=== PATIENT | male | born 1950 | race Caucasian/White ===

== ENCOUNTER 2018-04-20 16:56 | Inpatient (IN) | payer OTHER ==
--- NOTE | 2018-04-20 17:16 | EDPHY ---
H & P Stated Complaint: abd pain, N/V since yesterday Time Seen by Provider: 04/20/18 17:16 - Personal History Current Tetanus/Diphtheria Vaccine: Yes Current Tetanus Diphtheria and Acellular Pertussis (TDAP): Yes - Medical/Surgical History Hx Asthma: No Hx Chronic Respiratory Disease: No Hx Diabetes: No Hx Cardiac Disease: No Hx Renal Disease: No Hx Cirrhosis: No Hx Alcoholism: No Hx HIV/AIDS: No Hx Splenectomy or Spleen Trauma: No - Social History Smoking Status: Never smoked Constitutional: Initial Vital Signs Temperature (C) 37.1 C 04/20/18 17:03 Heart Rate 131 H 04/20/18 17:03 Respiratory Rate 19 04/20/18 17:03 Blood Pressure 102/90 H 04/20/18 17:03 O2 Sat (%) 94 04/20/18 17:03 O2 Delivery Mode Room Air Allergies/Adverse Reactions: No Known Allergies Allergy (Unverified 04/20/18 17:09) Home Medications: Medication Instructions Recorded Acyclovir 04/20/18 Levothyroxine 04/20/18 Lipitor 04/20/18 Medical Decision Making - Diagnostics Imaging Results: Imaging Impressions Abdomen/Pelvis CT 04/20/18 17:40 Impression: Extensive features of acute pancreatitis, associated with retroperitoneal and intraperitoneal fluid. Calcified gallstones are present dependently, associated with a rounded calcification in the pancreatic head suspicious for choledocholithiasis. Results called to Antonio Wick M.D., at 6:00 p.m. Imaging: Discussed imaging studies w/ rn call center Radiologist, I viewed and interpreted images myself ED Course/Re-evaluation: CHIEF COMPLAINT: Abdominal pain, nausea, vomiting HISTORY OF PRESENT ILLNESS: The patient is a 68 y/o male with a history of an appendectomy complaining of abdominal pain, nausea, and vomiting onset last night. At 7:00pm last night he had a bowel movement and then became nauseous and vomited. Since then he has had several episode of vomiting as well as diffuse abdominal tenderness. He saw his PCP (Dr. Le) today and had labs drawn which revealed elevated AST/ Alk Phos/ALT and a WBC of 23. Due to these labs, the patient was advised to present to the emergency department. His PCP gave the patient Phenergan which did not alleviate his symptoms. No fever, chest pain, shortness of breath, urinary complaints, numbness, paresthesias. REVIEW OF SYSTEMS: A comprehensive 10 system review of systems is otherwise negative aside from elements mentioned in the history of present illness and medical decision making. PHYSICAL EXAM: HR, BP, O2 Sat, RR. Temp noted General Appearance: Alert, appropriate, appears ill. Head: Atraumatic without scalp tenderness or obvious injury Eyes: Pupils equal, round, reactive to light and accommodation, EOMI, no trauma , no injection. Ears: Clear bilaterally, no perforation, normal landmarks Nose: Atraumatic, no rhinorrhea, clear. Throat: There is no erythema or exudates, no lesions, normal tonsils, dry membranes moist. Neck: Supple, 2+ carotid upstroke, nontender, no lymphadenopathy. Respiratory: No retractions, no distress, no wheezes, and no accessory muscle use. Lungs are clear to auscultation bilaterally. Cardiovascular: Regular rate and rhythm, no murmurs, rubs, or gallops. Bilateral carotid, radial, dorsalis pedis, and posterior tibial pulses intact. Good capillary refill all extremities. Gastrointestinal: Diffuse abdominal tenderness with peritoneal signs. Abdomen is soft, non-distended, no masses, no rebound. Musculoskeletal: Normal active ROM of all extremities, atraumatic. Neurological: Alert, appropriate, and interactive. The patient has normal DTRs and non-focal cranial nerves, motor, sensory, and cerebellar exam. Skin: No rashes, good turgor, no nodules on palpation. Past medical history: Denies Past surgical history: Appendectomy Family history: Denies Social history: and daughter at bedside, lives in [place], retired DIAGNOSTICS/PROCEDURES/CRITICAL CARE TIME: Abdominopelvic CT w/o contrast: Severe gallstone pancreatitis with common bile duct stone Critical care time spent by me, Dr. Wick, exclusively with this patient was 90 minutes, exclusive of PA time and exclusive of procedures. The organ system at risk was Z and I gave IVF, antibiotic, and transferred the patient the unit to prevent worsening of the patients condition. DIFFERENTIAL DIAGNOSIS: The differential diagnosis for the patient's abdominal pain included but was not limited to gallstone pancreatitis, appendicitis, cholecystitis, hernias, testicular torsion, gastritis, and urinary tract infection. MEDICAL DECISION MAKING: The patient is a 68 y/o male with a history of an appendectomy presenting with abdominal pain, nausea, and vomiting onset last night at 7:00pm after a bowel movement. While at his PCP's office today he had elevated AST/Alk Phos/ALT and a WBC of 23. On exam he has severe diffuse abdominal tenderness with peritoneal signs, dry mucus membranes, and appears sick. Labs and CT ordered; 2L IV NS and 1mg IV Dilaudid administered. 1739: Patient has a creatinine of 1.9; non-contrast CT ordered. 1749: Patient is in metabolic acidosis with an anion gap of 18. His H&H are also elevated which I presume is pre-renal. 1800: I spoke with radiologist who reports that the patient has severe gallstone pancreatitis with a gallstone in the common bile duct. GI paged. 1802: Reassessed patient and discussed imaging findings. I discussed plan for admission and stone removal which the patient and his family are comfortable with. 1813: I consulted with Dr. Trevizo, drone pilot, regarding this patient. He agrees to consult on this patient during his admission. 1gm IV Ertapenem administered. 1814: I consulted with the hospitalist regarding this patient, Dr. Coburn accepts admission of this patient. 1842: Additional 1L IV NS administered for a total of 3L IV NS. Patient is safe to be transferred to the floor. 1900: Dr. Trevizo and Dr. Coburn are in the emergency department to assess the patient. - Data Points Laboratory Results: Laboratory Results 04/20/18 17:25 04/20/18 17:25 04/20/18 04/20/18 04/20/18 18:05 17:36 17:25 WBC RBC Hgb POC Hgb 22.1 gm/dL H* gm/dL (13.7-17.5) Hct POC Hct 65 % H* % (40-51) MCV MCH MCHC RDW Plt Count MPV Neut % (Auto) Lymph % (Auto) Haines % (Auto) Eos % (Auto) Baso % (Auto) Nucleat RBC Rel Count Absolute Neuts (auto) Absolute Lymphs (auto) Absolute Monos (auto) Absolute Eos (auto) Absolute Basos (auto) Absolute Nucleated RBC Immature Gran % Immature Gran # RBC/WBC/PLT Morphology Platelet Estimate PT INR APTT VBG Lactic Acid 4.9 mmol/L H mmol/L (0.7-2.1) POC Sodium 141 mEq/L mEq/L (135-145) Sodium 136 mEq/L mEq/L (135-145) POC Potassium 4.0 mEq/L mEq/L (3.3-5.0) Potassium 4.3 mEq/L mEq/L (3.5-5.2) POC Chloride 101 mEq/L mEq/L (97-110) Chloride 99 mEq/L mEq/L (97-110) Carbon Dioxide 19 mEq/l L mEq/l (22-31) POC Total CO2 21 mEq/L L mEq/L (22-31) Anion Gap 18 mEq/L H mEq/L (6-14) POC BUN 31 mg/dL H mg/dL (7-23) BUN 29 mg/dL H mg/dL (7-23) Creatinine 1.9 mg/dL H mg/dL (0.7-1.3) POC Creatinine 2.0 mg/dL H mg/dL (0.7-1.3) Estimated GFR 35 Glucose 149 mg/dL H mg/dL (70-100) POC Glucose 159 mg/dL H mg/dL (70-100) Calcium 9.0 mg/dL mg/dL (8.5-10.4) Total Bilirubin 3.0 mg/dL H mg/dL (0.1-1.4) Conjugated Bilirubin 1.1 mg/dL H mg/dL (0.0-0.5) Unconjugated Bilirubin 1.9 mg/dL H mg/dL (0.0-1.1) AST 241 IU/L H IU/L (17-59) ALT 346 IU/L H IU/L (21-72) Alkaline Phosphatase 190 IU/L H IU/L (38-126) Total Protein 8.1 g/dL g/dL (6.3-8.2) Albumin 4.8 g/dL g/dL (3.5-5.0) Lipase 66813 IU/L H IU/L (23-300) 04/20/18 04/20/18 17:25 17:25 WBC 25.56 10^3/uL H 10^3/uL (3.80-9.50) RBC 6.82 10^6/uL H 10^6/uL (4.40-6.38) Hgb 20.7 g/dL H* g/dL (13.7-17.5) POC Hgb Hct 60.7 % H* % (40.0-51.0) POC Hct MCV 89.0 fL fL (81.5-99.8) MCH 30.4 pg pg (27.9-34.1) MCHC 34.1 g/dL g/dL (32.4-36.7) RDW 13.4 % % (11.5-15.2) Plt Count 246 10^3/uL 10^3/uL (150-400) MPV 10.5 fL fL (8.7-11.7) Neut % (Auto) 89.6 % H % (39.3-74.2) Lymph % (Auto) 4.3 % L % (15.0-45.0) Haines % (Auto) 4.9 % % (4.5-13.0) Eos % (Auto) 0.0 % L % (0.6-7.6) Baso % (Auto) 0.5 % % (0.3-1.7) Nucleat RBC Rel Count 0.1 % % (0.0-0.2) Absolute Neuts (auto) 22.90 10^3/uL H 10^3/uL (1.70-6.50) Absolute Lymphs (auto) 1.10 10^3/uL 10^3/uL (1.00-3.00) Absolute Monos (auto) 1.25 10^3/uL H 10^3/uL (0.30-0.80) Absolute Eos (auto) 0.00 10^3/uL L 10^3/uL (0.03-0.40) Absolute Basos (auto) 0.13 10^3/uL H 10^3/uL (0.02-0.10) Absolute Nucleated RBC 0.03 10^3/uL H 10^3/uL (0-0.01) Immature Gran % 0.7 % % (0.0-1.1) Immature Gran # 0.18 10^3/uL H 10^3/uL (0.00-0.10) RBC/WBC/PLT Morphology TNP Platelet Estimate TNP PT REJ INR SHIPPING AND RECEIVING SPECIALIST APTT REJ VBG Lactic Acid POC Sodium Sodium POC Potassium Potassium POC Chloride Chloride Carbon Dioxide POC Total CO2 Anion Gap POC BUN BUN Creatinine POC Creatinine Estimated GFR Glucose POC Glucose Calcium Total Bilirubin Conjugated Bilirubin Unconjugated Bilirubin AST ALT Alkaline Phosphatase Total Protein Albumin Lipase Medications Given: Discontinued Medications Hydromorphone HCl (Dilaudid) 1 mg IVP EDNOW ONE Stop: 04/20/18 18:10 Last Admin: 04/20/18 18:09 Dose: 1 mg Sodium Chloride (Ns) 1,000 mls @ 0 mls/hr IV EDNOW ONE; Wide Open PRN Reason: Protocol Stop: 04/20/18 17:22 Last Admin: 04/20/18 17:33 Dose: 1,000 mls Sodium Chloride (Ns) 1,000 mls @ 0 mls/hr IV EDNOW ONE; Wide Open PRN Reason: Protocol Stop: 04/20/18 17:34 Last Admin: 04/20/18 17:40 Dose: 1,000 mls Ertapenem 1 gm/ Sodium (Chloride) 100 mls @ 200 mls/hr IV EDNOW ONE PRN Reason: Protocol Stop: 04/20/18 18:42 Last Admin: 04/20/18 18:40 Dose: 100 mls Point of Care Test Results: Chemistry 04/20/18 17:36 POC Sodium 141 mEq/L mEq/L (135-145) POC Potassium 4.0 mEq/L mEq/L (3.3-5.0) POC Chloride 101 mEq/L mEq/L (97-110) POC Total CO2 21 mEq/L L mEq/L (22-31) POC BUN 31 mg/dL H mg/dL (7-23) POC Creatinine 2.0 mg/dL H mg/dL (0.7-1.3) POC Glucose 159 mg/dL H mg/dL (70-100) ISTAT H&H 04/20/18 17:36 POC Hgb 22.1 gm/dL H* gm/dL (13.7-17.5) POC Hct 65 % H* % (40-51) Departure - Departure Disposition: [facility] Inpatient Acute Clinical Impression: Gallstone pancreatitis, Dehydration, Metabolic acidosis Ascites Qualifiers: Ascites type: other type Qualified Code(s): R18.8 - Other ascites Condition: Fair Report Scribed for: Antonio Wick Report Scribed by: Leia Childress Date of Report: 04/20/18 Time of Report: 17:24
[2018-04-20] MEDS ORDERED: NS 1,000 ML IV ONE ×3 (17:21→19:10)
[2018-04-20] MEDS ORDERED: HYDROmorphONE/DILAUDID 1 MG/ML INJ ONE (18:08)
[2018-04-20] MEDS ORDERED: HYDROmorphONE/DILAUDID 1 MG/ML INJ IVP ONE (18:09)
[2018-04-20] MEDS ORDERED: ERTAPENEM 1 GM in NS 100 ML IV ONE (18:13)
[2018-04-20 18:14] LABS: PLATELET COUNT 246 10^3/uL (150-400)
[2018-04-20] MEDS ORDERED: HYDROmorphONE/DILAUDID 1 MG/ML INJ IVP PRN (18:38)
[2018-04-20] MEDS ORDERED: PROMETHAZINE HCL 25 MG/ML INJ IVP PRN (18:38)
[2018-04-20] MEDS ORDERED: ONDANSETRON 4 MG/2 ML VIAL IVP PRN (18:38)
[2018-04-20 19:27] LABS: INR 1.14 (0.83-1.16); PROTIME(PATIENT) 14.8 SEC (12.0-15.0)
[2018-04-20] MEDS: NS 1,000 ML IV SCH (20:38)
--- NOTE | 2018-04-20 23:24 | GHP ---
[f rep st] HISTORY AND PHYSICAL DATE OF ADMISSION: 04/20/2018 CHIEF COMPLAINT: Abdominal pain and nausea. HISTORY OF PRESENT ILLNESS: Mr. Colvin is a pleasant 68-year-old gentleman with a past medical histo ry of hyperlipidemia and hypothyroidism, who presented to the [facility] Emergency Ro om with complaints of abdominal pain and nausea and vomiting. He had a lipase level which was notabl y elevated at 12,000, and CT imaging of his abdomen and pelvis showed extensive features of acute [place] creatitis. In the emergency room his case was reviewed with Gastroenterology. I also reviewed the c ase with Gastroenterology, and the plan is for IV fluids, IV antibiotics, and pain medications overni ght and tentatively planning for an ERCP tomorrow morning. Patient states that his symptoms develope d over the subsequent 36 hours. Much of the history was provided by his and daughter who were p resent at the bedside. PAST MEDICAL HISTORY: Hyperlipidemia, hypothyroidism. PAST SURGICAL HISTORY: Appendectomy and Achilles heel surgery on a tendon. MEDICATIONS: None. ALLERGIES: No known drug allergies. FAMILY HISTORY: Mother is . She from congestive heart failure. Father is currently li ving and reportedly healthy. SOCIAL HISTORY: The patient is a nonsmoker. He is currently . He has one daughter. He is a full code status. REVIEW OF SYSTEMS: CONSTITUTIONAL: No subjective fevers or chills. ENT: No recent upper respirato ry illnesses. CARDIOVASCULAR: No complaints of any chest pains, palpitations, or syncopal episodes. RESPIRATORY: No complaints of shortness of breath or productive cough. GI: Positive for epigastr ic discomfort with associated nausea and vomiting. NEUROLOGIC: No complaints of any headaches or fo shirley weakness. HEMATOLOGIC: No history of any deep vein thrombosis or pulmonary embolisms. PSYCHIAT JOSE: No history of anxiety or depression. ENDOCRINE: No history of polyuria or heat intolerance. SKIN: No new skin rashes or bruising on the flanks. MUSCULOSKELETAL: No focal joint pains. PHYSICAL EXAM: VITAL SIGNS: Temperature 36.4, blood pressure 139/102, heart rate 131 initially whic h has improved to 109 with some IV fluid hydration, respiratory rate of 20, saturating 94% on room ai r. GENERAL: Patient appears moderately uncomfortable, lying flat in the bed. He is arousable, poon ricky, and responding to questions but prefers to have his family answer for him. HEENT: Extraocular movements appear intact. No scleral icterus is appreciated. NECK: Supple. No thyroid enlargement. CHEST: Clear to auscultation with normal respiratory effort. HEART: Regular rate and rhythm. No murmurs. ABDOMEN: Tenderness with palpation of the epigastrium. Diminished bowel sounds throughou t. No rebound tenderness or significant distention appreciated. : No Arciniega catheter in place. E XTREMITIES: No significant edema. NEUROLOGIC: Cranial nerves 2-12 appear intact and 5/5 strength i n extremities. LABS: White blood cell count 25, hemoglobin 20, platelets 246. Sodium 141, potassium 4.0, chloride 99, bicarb 19, BUN 29, creatinine 1.9, glucose 149, AST 241, ALT 346, alkaline phosphatase 190, total bilirubin 3.0, lipase 12,294, lactic acid 4.9. IMAGING: CT scan of the abdomen showing extensive features of acute pancreatitis with associated ret roperitoneal and intraperitoneal fluid. Calcified gallstones present dependently associated with a r ound calcification in the pancreatic head, suspicious for choledocholithiasis. ASSESSMENT/PLAN: 1. Pancreatitis/gallstone: Concerning for related to choledocholithiasis by CT imaging findings. G astroenterology has been consulted, and I reviewed the case with Dr. Trevizo today. Plan is for ERCP u paoc reassessment tomorrow morning. In the interim, continue with IV fluids and IV antibiotic therapy as well as IV medications for pain management. Reassess liver enzymes and white blood cell count an d lipase level with morning labs. 2. Acute kidney injury, likely secondary to hypovolemia: Reassess overnight with IV fluids. 3. Transaminitis: Trend overnight with treatment as detailed above. 4. Lactic acidosis: Improved since admission from 4.9 to 2.6. 5. Elevated hemoglobin, likely hemoconcentrated: Reassess in the morning after IV fluids. 6. Hyperlipidemia: Hold the statin therapy for now. 7. Hypothyroidism: Hold levothyroxine for now until tolerating diet. 8. Deep venous thrombosis prophylaxis: We will hold Lovenox/heparin overnight in anticipation of po tential procedure tomorrow morning. DISPOSITION: I recommend admission as an inpatient. Considering the level of patient's illness, ant icipated ERCP, and anticipated time needed to advance his diet. /[id number]/MODL
--- NOTE | 2018-04-21 00:14 | GCON ---
[f rep st] CONSULTATION DATE OF CONSULTATION: 04/20/2018 REASON FOR CONSULTATION: Acute pancreatitis. Dear Dr. Coburn: Thank you very kindly for asking me to evaluate the patient in consultation for a chief complaint of abdominal pain. He is a pleasant 68-year-old male without significant past medical history who prese nts with abrupt onset epigastric pain that was severe in nature. He thought he had food-borne illnes s and tried to have a bowel movement. He was successful in having a bowel movement that he says was normal but did not resolve any of his pain. He started having nausea and vomiting and has been unabl e to tolerate much oral intake. He has been dizzy, fatigued, and somewhat lightheaded. In the emerg ency room he was found to have acute pancreatitis with a lipase of 12,294. He has LFTs that reveal b oth an elevated total bilirubin at 3.0 with an unconjugated fraction of 1.9, an AST of 241, an ALT of 346, and an alkaline phosphatase of 190. He is in mild renal failure with a creatinine of 1.9, and he is markedly hemoconcentrated with a hematocrit of 60.7 and a white count of 25.56. His bicarbonat e is low at 19 with an anion gap of 18. A CT scan of the abdomen and pelvis without IV contrast due to his renal failure demonstrated cholelithiasis, perihepatic ascites likely from pancreatitis, and a 2.6 mm stone within the common bile duct at the head of the pancreas. The pancreas also demonstrate s radiographic features of acute pancreatitis. The patient denies any fever. He has had no jaundice or pruritus. He denies any tea-colored urine, although he also admits to not making much urine. He has never had previous pancreatitis. There is no history of alcoholism. I am asked to assist with further evaluation and management. PAST MEDICAL HISTORY: None. PAST SURGICAL HISTORY: Appendectomy. SOCIAL HISTORY: No tobacco. No substance abuse. Rare alcohol. The patient lives in [place]. He is . He has one daughter. 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 MEDICATIONS ON ADMISSION: None. ALLERGIES: None. REVIEW OF SYSTEMS: CONSTITUTIONAL: Denies fever, chills. He has had no appetite. HEENT: No heada sissy. No rhinorrhea. No sore throat. PULMONARY: He has felt somewhat short of breath and dyspneic. CARDIOVASCULAR: No chest pain, palpitations, or syncope. GASTROINTESTINAL: Denies heartburn or d ysphagia. No hematemesis, but he has had dry heaves and vomiting of bilious material. No diarrhea. No constipation. No melena. No hematochezia. Diffuse and generalized abdominal pain that is rated as severe and 8/10 in nature. RHEUMATOLOGIC: No joint pain or swelling. DERMATOLOGIC: No jaundic e, rash, or pruritus. ENDOCRINE: No heat or cold intolerance. He has been somewhat thirsty. GENIT OURINARY: No flank pain or dysuria. No hematuria. HEMATOLOGIC: No bruising or epistaxis. LYMPH: No glandular swelling or adenopathy. FAMILY HISTORY: Negative for pancreatitis. PHYSICAL EXAM: VITAL SIGNS: Blood pressure 139/102, heart rate is 109 (was 130 with a sinus tachyca rdia on admission and improved with fluids), initial temperature was 37.1, current temperature is 36. 4, oxygenation is 94% on room air. GENERAL: Ill-appearing male seems comfortable though laying flat in the stretcher in the emergency room. HEENT: Sclerae are not overtly icteric. NECK: Supple. M ucous membranes are dry. No adenopathy. No carotid bruit. PULMONARY: He is tachypneic. Breath so unds are equal, and he moves air well without rales. CARDIOVASCULAR: Regular tachycardia. Systolic murmur at the left border 2/6. ABDOMEN: Distended, somewhat tympanic centrally. There is tenderne ss diffusely. No overt rebound. There is voluntary guarding with palpation. There are no peritonea l signs in regard to when I shake the bed or bounce his belly or lift up off his abdomen quickly. Th ere is no rebound or other immediate pain. I do not palpate the gallbladder liver or spleen. I yesy ot appreciate ascites, although radiographically he was noted to have this. There is no flank hemorr mary. No CVA tenderness. MUSCULOSKELETAL: Normal joint exam without swelling or deformity. DERMAT OLOGIC: No jaundice. No rash. NEUROLOGIC: Alert to person, place, and time. Appropriate speech a nd affect. Able to provide his history. Moves all extremities normally. DATABASE: White blood count is 25.5, hematocrit is 60.7, platelets are 246. His lactate is 4.9. So dium 141, potassium 4.0, chloride 101, bicarbonate 19, BUN is 31 with a creatinine of 1.9, glucose 14 9, calcium 9.0, total bilirubin 3.0 with a direct of 1.1, AST 241, ALT 346, alkaline phosphatase 190, albumin 4.8, lipase is 12,294. IMAGING: Includes a CT scan of the abdomen and pelvis without IV contrast that demonstrates clear chetna ng bases. There are perihepatic ascites. There are extensive inflammatory changes around the pancre as with retroperitoneal and intraperitoneal fluid. There are small dependent calcified gallstones in the gallbladder. There is choledocholithiasis with a 2.6 mm calculus in the head of the pancreas. The small bowel is dilated, compatible with ileus. The spleen is normal. No focal liver lesion. No mention of biliary dilatation. IMPRESSION: 1. Epigastric and generalized abdominal pain. 2. Nausea and vomiting. 3. Acute pancreatitis, likely gallstone related. 4. Lactic acidosis. 5. Severe dehydration with hemoconcentration. RECOMMENDATIONS: 1. NPO. 2. Aggressive IV fluid resuscitation. 3. Monitor LFTs and lipase. 4. We will plan for ERCP to extract the choledocholithiasis in the morning as long as he demonstrate s persistent evidence of biliary obstruction with elevated liver tests and ongoing pain with pancreat itis. The benefit of removing the choledocholithiasis in the setting of ongoing pancreatitis that is being driven by the obstructing stone is important and should be done tomorrow. 5. I have spoken with the OR scheduling and with Radiology to secure the C-arm as well as with GI En doscopy Lab to confirm we can have a start time of approximately 7:15 tomorrow morning. 6. ICU monitoring overnight. 7. IV PPI b.i.d. for GI prophylaxis. 8. Antibiotics, broad spectrum, in the setting of likely biliary obstruction and gallstone pancreati tis will be initiated tonight. 9. We will avoid the use of Indocin for preprocedural ERCP as he already has elevation of his creati nine and has pancreatitis already, so I think the benefit of indomethacin for preprocedure prophylaxi s will not be warranted. 10. Further recommendations to follow. I have discussed the case with Dr. Coburn and with Dr. Joel cancino, the ER attending, as well as the family. If there is worsening of his clinical condition overnig ht with the development of either mental status change, sepsis, or evidence of cholangitis, then a mo re urgent ERCP this evening will be required. For now I think we would be able to support him and re suscitate him appropriately for the intervention tomorrow morning. /[id number]/MODL
[2018-04-21] MEDS: HYDROmorphONE/DILAUDID 1 MG/ML INJ IVP PRN ×8 (00:17→22:20)
[2018-04-21 05:19] LABS: PLATELET COUNT 199 10^3/uL (150-400)
[2018-04-21] MEDS ORDERED: IOTHALAMATE MEG (CONRAY) 50 ML VIAL IV ONE (05:34)
[2018-04-21] MEDS: NS 1,000 ML IV SCH (06:02)
--- NOTE | 2018-04-21 06:21 | PDMN ---
Medical Necessity Medical necessity: MCG: M250 pancreatitis 2 days-68 yr old M presents with acute abd pain, N/V., Lipase elevated at 12,000, Cr. elevated at 1.9, leukocytosis, elevated LFT's., CT shows acute pancreatitis. pt is tachycardic -131, elevated BP 139/102, pt will be NPO , IVF , IV abx, IV pain, anticipate > 2 MN ongoing med nec care- further monitoring, eval and tx.
--- NOTE | 2018-04-21 06:57 | PDANEPAE ---
ANE History of Present Illness acute pancreatitis ANE Past Medical History - Cardiovascular History Hx Hypertension: No Hx Arrhythmias: No Hx Chest Pain: No Hx Coronary Artery / Peripheral Vascular Disease: No Hx CHF / Valvular Disease: No Cardiovascular History Comment: high cholesterol - Pulmonary History Hx COPD: No Hx Asthma/Reactive Airway Disease: No Hx Recent Upper Respiratory Infection: No Hx Oxygen in Use at Home: No Hx Sleep Apnea: No Sleep Apnea Screening Result - Last Documented: Positive - Neurologic History Hx Cerebrovascular Accident: No Hx Seizures: No Hx Dementia: No - Endocrine History Hx Diabetes: No Hypothyroid: Yes Hyperthyroid: No Obesity: no - Renal History Renal History Comment: acute renal due to dehydration - Liver History Hepatic History Comment: pancreatitis - Neurological & Psychiatric Hx Hx Neurological and Psychiatric Disorders: No - Cancer History Hx Cancer: No - Congenital Disorder History Hx Congenital Disorders: No - GI History Hx Gastrointestinal Disorders: Yes Gastrointestinal History Comment: acute pancreatitis - Chronic Pain History Chronic Pain: No - Surgical History Prior Surgeries: appy. achilles ANE Review of Systems Review of systems is: negative Review of Systems: - Exercise capacity METS (RN): 4 METS ANE Patient History - Allergies Allergies/Adverse Reactions: No Known Allergies Allergy (Unverified 04/20/18 17:09) - Home Medications Home medications: home medication list seen and reviewed Home Medications: Acyclovir [Zovirax 400 mg (*)] 400 mg PO TID PRN 04/20/18 [Last Taken 3 Weeks Ago ~03/30/18] Aspirin EC [Aspirin EC 81 mg (*)] 81 mg PO HS 04/20/18 [Last Taken 04/18/18] Levothyroxine [Synthroid 25 mcg (*)] 50 mcg PO DAILY06 04/20/18 [Last Taken 01/26] Promethazine HCl [Promethazine HCl] 25 mg PO Q6H PRN 04/20/18 [Last Taken 14:30] SIMVASTATIN 10 mg PO HS 04/20/18 [Last Taken 04/18/18] - NPO status NPO Status: no food or drink >8 hours NPO Since - Liquids (Date): 04/20/18 NPO Since - Liquids (Time): 21:00 NPO Since - Solids (Date): 04/20/18 NPO Since - Solids (Time): 20:00 - Anes Hx Anes Hx: no prior problems - Smoking Hx Smoking Status: Never smoked Marijuana use: No - Alcohol Use Alcohol Use: Rarely - Family Anes Hx Family Anes Hx: none ANE Labs/Vital Signs - Labs Result Diagrams: 04/21/18 04:05 04/20/18 17:25 - Vital Signs Blood Pressure: 108/89 Heart Rate: 114 Respiratory Rate: 15 O2 Sat (%): 91 Height: 185.42 cm Weight: 94.5 kg ANE Physical Exam - Airway Neck exam: FROM Mallampati Score: Class 2 Mouth exam: normal dental/mouth exam - Pulmonary Pulmonary: no respiratory distress, clear to auscultation - Cardiovascular Cardiovascular: regular rate and rhythym, no murmur, rub, or gallop - ASA Status ASA Status: III ANE Anesthesia Plan Anesthesia Plan: general endotracheal anesthesia
[2018-04-21] MEDS ORDERED: PROPOFOL 200 MG/20 ML VIAL ONE (07:04)
[2018-04-21] MEDS ORDERED: ROCURONIUM 50 MG/5 ML VIAL ONE (07:05)
[2018-04-21] MEDS ORDERED: LR 1,000 ML IV ONE (07:05)
[2018-04-21] MEDS ORDERED: SUCCINYLCHOLINE CHLORIDE 200 MG/10 ML SYR IVP ONE (07:05)
[2018-04-21] MEDS ORDERED: LIDOCAINE 2% 5 ML SDV ONE (07:05)
[2018-04-21] MEDS ORDERED: fentaNYL 100 MCG/2 ML INJ ONE (07:05)
[2018-04-21] MEDS ORDERED: PHENYLEPHRINE HCL 100 MCG/ML SYR ONE ×2 (07:05→08:03)
[2018-04-21] MEDS ORDERED: ePHEDrine SULFATE 25 MG/5 ML SYR ONE ×2 (08:03)
[2018-04-21] MEDS ORDERED: SUGAMMADEX SODIUM 200 MG/2 ML VIAL IVP ONE (08:14)
--- NOTE | 2018-04-21 08:28 | GIREPORT ---
[facility] Surgical Services - Endoscopy Department Patient Name: Marcus Colvin Procedure Date: 04/21/2018 7:30 AM Patient Type: Inpatient Attending MD/ ER Physician: Aristides Trevizo MD Procedure: ERCP Indications: Bile duct stone(s), Abdominal pain of suspected pancreatic origin, Acut e pancreatitis Providers: Aristides Treivzo MD Medicines: General Anesthesia, Invanz 1 g IV Complications: No immediate complications. Description of Procedure: After obtaining informed consent, the scope was passed under direct vis ion. Throughout the procedure, the patient's blood pressure, pulse, and oxyg en saturations were monitored continuously. The Duodenalscope was introduc ed through the mouth, and advanced to the duodenum and used to inject cont rast into the bile duct. The ERCP was accomplished without difficulty. The patient tolerated the procedure well. Findings: The customer marketing intern film was normal. The esophagus was successfully intubated und er direct vision. The scope was advanced from the mouth to the duodenum. T he pharynx, larynx and associated structures, as well as the upper GI trac t, were normal. The major papilla was bulging with surrounding erythema. Occasional dark, static bile would ooze from the papilla. A 0.035 inch straight standard wire was passed into the biliary tree. The traction (standard) sphincterotome was passed over the guidewire and the bile du ct was then deeply cannulated. Contrast was injected. I personally interpr eted the bile duct images. There was brisk flow of contrast through the duct s. Image quality was excellent. Choledocholithiasis was found in a dilated duct. The duct was dilated in the supra-pancreatic portion to 12mm. The intrahepatic ducts were normal. The bile duct tapered smoothly through the intra-pancreatic portion. A 10 mm biliary sphincterotomy was made with a monofilament traction (standard) sphincterotome using ERBE electrocaute ry. There was no post-sphincterotomy bleeding. The biliary tree was swept w ith a 12 mm balloon starting at the bifurcation. Sludge was swept from the du ct. Many stones were removed. No stones remained. Estimated Blood Loss: Estimated blood loss: none. Post Op Diagnosis: - The major papilla appeared to be bulging. - Choledocholithiasis was found. Complete removal was accomplished by biliary sphincterotomy and balloon extraction. - A biliary sphincterotomy was performed. - The biliary tree was swept. Recommendation: - [facility] patient [facility]. - Avoid aspirin and nonsteroidal anti-inflammatory medicines. - Watch for pancreatitis, bleeding, perforation, and cholangitis. - Check lipase and liver enzymes (AST, ALT, alkaline phosphatase, bilir ubin) tomorrow. - Thank you for allowing me to be involved in the care of your patient. Attending Participation: I personally performed the entire procedure without the assistance of a fellow, resident or surg ical instruction assistant principal. Aristides Trevizo MD Aristides Trevizo MD 04/21/2018 8:27:25 AM This report has been signed electronicallyDavid MD Joseline Number of Addenda: 0 Note Initiated On: 04/21/2018 7:30 AM [email or web address]
[2018-04-21] MEDS ORDERED: fentaNYL 100 MCG/2 ML INJ IVP PRN (08:31)
[2018-04-21] MEDS ORDERED: LR 500 ML IV PRN (08:31)
[2018-04-21] MEDS ORDERED: NALOXONE HCL 0.4 MG/ML INJ IVP PRN (08:31)
--- NOTE | 2018-04-21 08:32 | POSTANESTH ---
Post Anesthetic Evaluation Cardiovascular Status: Normal, Stable Respiratory Status: Normal, Stable Level of Consciousness/Mental Status: Can Participate in Eval Pain Control: Adequate, Prn Tx Ordered Nausea/Vomiting Control: Adequate, Prn Tx Ordered Complications Possibly Related to Anesthesia: None Noted
[2018-04-21] MEDS ORDERED: ENOXAPARIN 40 MG/0.4 ML SYR SC SCH (09:00)
[2018-04-21] MEDS ORDERED: SODIUM BICARBONATE 150 MEQ in D5W 1,000 ML IV SCH (09:45)
[2018-04-21] MEDS: TAMSULOSIN HCL 0.4 MG CAP PO SCH (10:14)
--- NOTE | 2018-04-21 11:22 | ASMTCMCOM ---
CM Note CM Note Notes: Patient is s/p emergent bile duct stone removal today. He is normally independent, lives w his Roma. I do not anticipate any d/c needs, but CM can assist if they arise. Current CM d/c plan: home independent Date Signed: 04/21/2018 11:22 AM Electronically Signed By:Marleen Perez RN
--- NOTE | 2018-04-21 12:22 | HOSPPROG ---
Hospitalist Progress Note Assessment/Plan: 68 yo M w gallstone pancreatitis cholelithiasis/choledocholithiasis: s/p ercp needs cholecystectomy, timing TBD appropriate to wait until intrabdominal inflammation decreased 48 hours abx, continue if febrile pancreatitis: moderate tachycardic continue NPO/IVF/pain meds polycythemia: likely 2/2 TARI outpt sleep study proph: add LMWH dispo: icu Subjective: case d/w [place] Meza and Joseline. s/p ERCP w stone removal Objective: Vital Signs Temp Pulse Resp BP Pulse Ox 37.1 C 115 H 27 H 131/74 H 95 04/21/18 12:00 04/21/18 12:00 04/21/18 12:00 04/21/18 12:00 04/21/18 12:00 Laboratory Results 04/21/18 04:05 04/21/18 04:05 04/20/18 04/21/18 04/22/18 05:59 05:59 05:59 Intake Total 4333 900 Output Total 550 0 Balance 3783 900 PT 14.8 SEC (12.0-15.0) 04/20/18 18:58 INR 1.14 (0.83-1.16) 04/20/18 18:58 - Physical Exam Constitutional: no apparent distress, appears nourished Eyes: PERRL, anicteric sclera Ears, Nose, Mouth, Throat: moist mucous membranes, hearing normal Cardiovascular: regular rate and rhythym, no murmur, rub, or gallop Respiratory: no respiratory distress, no rales or rhonchi Gastrointestinal: distension, other (hypoactive bowel sounds), No normoactive bowel sounds, No guarding, No rebound Genitourinary: no bladder fullness, No [place] in urethra Skin: warm, normal color Musculoskeletal: full muscle strength, no muscle tenderness Neurologic: AAOx3, sensation intact bilaterally Psychiatric: interacting appropriately Lymph, Heme, Immunologic: no cervical LAD ICD10 Worksheet Patient Problems: Problems Problem Status Onset Ascites Acute Dehydration Acute Gallstone pancreatitis Acute Metabolic acidosis Acute
--- NOTE | 2018-04-21 13:15 | PDCONSULT ---
Animal Herder Note: ASSESSMENT 68-year-old male admitted with severe gallstone pancreatitis status post ERCP 01/2019 # gallstone pancreatitis, severe. Status post ERCP 04/20/2018 with stone removal and copious sludge # choledocholithiasis # hemoconcentration. Secondary to pancreatitis # NAHID # urinary retention. Signs and symptoms consistent with BPH which proceeded admission # leukocytosis # HLD # tachycardia PLAN # stop NS # bicarb - 150 amps in 1L D5 given benefit in sepsis related NAHID # LR as needed # continue ertapenum, will d/c if clinically improving and afebrile in AM # flomax 0.4 mg # straight cath as needed # trend lytes # will discuss with surgery when clinically improved regarding possible cholecystectomy # Feeding - NPO # Analgesia APAP, dilaudid # Sedation trazodone qhs prn # Thromboprophylaxis - SQ hep # Head of bed elevated # Ulcer prophylaxis - NA # Glucose SSI # Skin no skin breakdown # Delirium - delirium precautions ABX ertapenem 04/20/18-present EVENTS 04/20/18 ERCP CX Data reviewed LABS lipase 12,000, SCr 1.8 IMAGING 04/20/18 CT abd/pelvis - retroperitoneal intraperitoneal fluid, edema and inflammation of the pancreas. Calcified gallstones rounded calcification pancreatic head CONSULT [facility] for [facility] care in the setting of severe pancreatitis HPI 68-year-old male with no significant past medical history who presents emergency department severe nausea vomiting and abdominal pain. The time he complained of mild chills and malaise. He underwent laboratory data which demonstrated markedly elevated lipase of 12,[address] abdomen pelvis consistent with severe pancreatitis and evidence of choledocholithiasis. He was given IV hydration IV antibiotics and went for ERCP with stone removal. He has never had pancreatitis before, he denies history of alcohol use or other medications that could have contributed to pancreatitis Allergies No known drug allergies Past medical history hyperlipidemia, hypothyroidism Surgical history Appendectomy, Achilles tendon repair Social history Never smoker, no alcohol, 1 daughter Review of system A comprehensive 10 point review of systems was obtained is negative except as per HPI Physical exam Blood pressure 131/74 map 86 pulse 115 respiratory rate 27 95% 2 L GEN: Mild respiratory distress resting in bed family present. NEURO: A&Ox3, CN 2-12 GI HEENT: PERRL, EOMI, MMM, OP clear NECK: supple, trachea midline CHEST normal shape, no pes excavatum CVS: Tachycardic, no murmur rubs or gallops PULM: CTA B, no wheezes/rales/rhonchi ABD: Tender, mildly distended EXT: no swelling, no cyanosis, full ROM SKIN: warm, dry, intact, no rash PSYCH CAM negative, appropriate affect
[2018-04-21] MEDS ORDERED: ERTAPENEM 1 GM in NS 100 ML IV SCH (17:00)
[2018-04-21] MEDS: LR 1,000 ML IV SCH (22:15)
[2018-04-21] MEDS ORDERED: NS 1,000 ML IV ONE (22:29)
[2018-04-21] MEDS ORDERED: CALCIUM GLUCONATE 2 GM in NS 50 ML IV ONE (22:29)
[2018-04-22] MEDS ORDERED: LR 1,000 ML IV ONE ×2 (00:21→08:44)
[2018-04-22] MEDS: HYDROmorphONE/DILAUDID 1 MG/ML INJ IVP PRN ×6 (02:01→23:32)
[2018-04-22 03:56] LABS: PLATELET COUNT 158 10^3/uL (150-400)
[2018-04-22] MEDS ORDERED: CALCIUM GLUCONATE 2 GM in D5W 50 ML IV ONE ×2 (08:42→15:41)
--- NOTE | 2018-04-22 08:49 | PDINTPN ---
Electro Mechanical Designer Progress Note Assessment/Plan: ASSESSMENT 68-year-old male admitted with severe gallstone pancreatitis status post ERCP 01/2019 # gallstone pancreatitis, severe. Status post ERCP 04/20/2018 with stone removal and copious sludge # choledocholithiasis # hemoconcentration. Secondary to pancreatitis # hypocalcemia # NAHID # urinary retention. Signs and symptoms consistent with BPH which proceeded admission # leukocytosis # HLD # tachycardia # hypotension PLAN # replete Ca # LR bolus and maintenance # scheduled LR # patient has received guideline based IVF resuscitation for acute pancreatitis and is out of the 24 hr window. If still requiring large amounts of fluid may consider adding vasopressors to IV fluids to help mitigate hypervolemia and hypoxemia # continue ertapenem per GI although will likely stop and coming days # flomax 0.4 mg # straight cath as needed # trend lytes # will discuss with surgery when clinically improved regarding possible cholecystectomy # Feeding - NPO # Analgesia APAP, dilaudid # Sedation trazodone qhs prn # Thromboprophylaxis - SQ hep # Head of bed elevated # Ulcer prophylaxis - NA # Glucose SSI # Skin no skin breakdown # Delirium - delirium precautions ABX ertapenem 04/20/18-present Subjective: Afebrile yesterday, diarrhea overnight, Cdiff sent last night, still tachy, still with mild tachypnea, last dose of ertapenum last night. No rash, no chest pain, mild shortness of breath, diarrhea, no cough Objective: Vital Signs Temp Pulse Resp BP Pulse Ox 36.6 C 127 H 24 H 96/67 L 96 04/22/18 00:00 04/22/18 06:00 04/22/18 06:00 04/22/18 06:00 04/22/18 06:00 Laboratory Results 04/22/18 03:49 04/22/18 03:49 04/21/18 04/22/18 04/23/18 05:59 05:59 05:59 Intake Total 4333 6929 Output Total 550 460 Balance 3783 6469 PT 14.8 SEC (12.0-15.0) 04/20/18 18:58 INR 1.14 (0.83-1.16) 04/20/18 18:58 Physical Exam - Physical Exam General Appearance: alert EENT: PERRL/EOMI, normal ENT inspection, pharynx normal Neck: non-tender, full range of motion Respiratory: chest non-tender, other (Decreased breath sounds, mild tachypnea) Cardiac/Chest: other (Tachycardic, regular rate and rhythm) Abdomen: other (Mildly distended, mild tenderness to palpation, no rebound or guarding) Back: Normal inspection Skin: normal color, warm/dry, No cyanosis Extremities: normal range of motion, non-tender Neuro/Psych: no motor/sensory deficits, alert, normal mood/affect, oriented x 3 ICD10 Worksheet Patient Problems: Problems Problem Status Onset Ascites Acute Dehydration Acute Gallstone pancreatitis Acute Metabolic acidosis Acute
[2018-04-22] MEDS: HEPARIN 5,000 UNIT/0.5 ML INJ SC SCH ×3 (09:47→21:03)
[2018-04-22] MEDS: TAMSULOSIN HCL 0.4 MG CAP PO SCH (10:10)
[2018-04-22] MEDS ORDERED: ALBUMIN 5% 250 ML IV ONE (10:39)
[2018-04-22] MEDS: LR 1,000 ML IV SCH ×2 (11:18→23:56)
--- NOTE | 2018-04-22 11:19 | SOAPPROG ---
SOAP Progress Note Assessment/Plan: Assessment: 1. Acute GS pancreatitis 2. Cholelithiasis 3. Ileus 4. NAHID 5. Hypotension 6. Tachycardia Plan: 1. Monitor LFTs 2. Check AM lipase 3. 2 way of abdomen to evaluate ileus 4. Consider early intervention with nutrition but with ileus and NAHID may be difficult to decide upon dobhoff enteral feeds or TPN. Will need to discuss this closer to hospital day 7 if not improved enough to eat (which I doubt). 5. Continue antibiotic therapy for now (more prophylactic with sepsis looking picture and intact GB with known stones as yet unable to be surgically treated). 6. Aggressive IVF 7. Consider renal consult if worsening creatinine by tomorrow 04/22/18 11:16 Subjective: CC: abdominal pain Abdomen distended and with pain but mostly controlled with pain meds Denies nausea or emesis No BM Still mentating well but looks exhausted Objective: Vital Signs Temp Pulse Resp BP Pulse Ox 36.4 C 123 H 20 112/64 92 04/22/18 08:00 04/22/18 10:00 04/22/18 10:00 04/22/18 10:00 04/22/18 10:00 Laboratory Results 04/22/18 03:49 04/22/18 03:49 04/21/18 04/22/18 04/23/18 05:59 05:59 05:59 Intake Total 4333 6929 Output Total 550 460 Balance 3783 6469 PT 14.8 SEC (12.0-15.0) 04/20/18 18:58 INR 1.14 (0.83-1.16) 04/20/18 18:58 Physical Exam - Physical Exam General Appearance: mild distress EENT: normal ENT inspection Neck: supple Respiratory: decreased breath sounds, No rales, No rhonchi, No stridor Cardiac/Chest: tachycardia Abdomen: distended, ascites, No guarding, No rebound Skin: warm/dry, No cyanosis, No pallor Neuro/Psych: alert, oriented x 3 ICD10 Worksheet Patient Problems: Problems Problem Status Onset Ascites Acute Dehydration Acute Gallstone pancreatitis Acute Metabolic acidosis Acute
--- NOTE | 2018-04-22 12:31 | HOSPPROG ---
Hospitalist Progress Note Assessment/Plan: 68 yo M w gallstone pancreatitis cholelithiasis/choledocholithiasis: s/p ercp needs cholecystectomy, timing TBD appropriate to wait until intrabdominal inflammation decreased 48 hours abx, continue if febrile pancreatitis: continues sirs c/w mod/severe pancreatitis continue npo, ivf likely progressing towards need for enteral or parenteral feeding NAHID: intravascularly dry 24 hours of q 6 albumin bid met panel renal consult for cr > 3 polycythemia: likely 2/2 TARI vs volume depletion outpt sleep study proph: sc heparin dispo: icu Subjective: case d.w dr mcknight. remains tachycardic. cr rising Objective: Vital Signs Temp Pulse Resp BP Pulse Ox 36.6 C 120 H 34 H 122/61 H 91 L 04/22/18 12:00 04/22/18 12:00 04/22/18 12:00 04/22/18 12:00 04/22/18 12:00 Laboratory Results 04/22/18 03:49 04/22/18 03:49 04/21/18 04/22/18 04/23/18 05:59 05:59 05:59 Intake Total 4333 6929 Output Total 550 460 Balance 3783 6469 PT 14.8 SEC (12.0-15.0) 04/20/18 18:58 INR 1.14 (0.83-1.16) 04/20/18 18:58 - Physical Exam Constitutional: no apparent distress, appears nourished Eyes: PERRL, anicteric sclera Ears, Nose, Mouth, Throat: moist mucous membranes, hearing normal Cardiovascular: regular rate and rhythym, no murmur, rub, or gallop Respiratory: no respiratory distress, no rales or rhonchi Gastrointestinal: distension, other (hypoactive bowel sounds), No normoactive bowel sounds, No guarding, No rebound Genitourinary: No sal[place] in urethra Skin: warm, normal color Musculoskeletal: full muscle strength, no muscle tenderness Neurologic: AAOx3 ICD10 Worksheet Patient Problems: Problems Problem Status Onset Ascites Acute Dehydration Acute Gallstone pancreatitis Acute Metabolic acidosis Acute
[2018-04-22] MEDS: ALBUMIN 25% 200 ML IV SCH ×3 (13:42→23:50)
[2018-04-22] MEDS: ERTAPENEM 1 GM in NS 100 ML IV SCH (16:54)
[2018-04-23] MEDS ORDERED: FUROSEMIDE 40 MG/4 ML VIAL IVP ONE ×2 (01:58→08:36)
[2018-04-23] MEDS: HYDROmorphONE/DILAUDID 1 MG/ML INJ IVP PRN ×6 (04:28→23:38)
[2018-04-23] MEDS: ALBUMIN 25% 200 ML IV SCH (05:32)
[2018-04-23] MEDS: HEPARIN 5,000 UNIT/0.5 ML INJ SC SCH (05:32)
[2018-04-23 06:00] LABS: PLATELET COUNT 114 10^3/uL (150-400)
--- NOTE | 2018-04-23 08:39 | PDINTPN ---
Insurance Follow Up Specialist Progress Note Assessment/Plan: ASSESSMENT 68-year-old male admitted with severe gallstone pancreatitis status post ERCP 01/2019 # acute hypoxemic resp failure. due to IVF and pancreatitis. Improved with lasix. gallstone pancreatitis, severe. Status post ERCP 04/20/2018 with stone removal and copious sludge # choledocholithiasis # hemoconcentration. Secondary to pancreatitis. now improving # hypocalcemia # NAHID, SCr peaked 1.9 # urinary retention. Signs and symptoms consistent with BPH which proceeded admission # leukocytosis # HLD # tachycardia # hypotension PLAN # lasix 20 mg IV x 1 now # stop albumin # sips and chips, if tolerating will transition to low fat diet tomorrow # supplemental oxygen, wean as tolerated # patient has received guideline based IVF resuscitation for acute pancreatitis and is out of the 24 hr window. If still requiring large amounts of fluid may consider adding vasopressors to IV fluids to help mitigate hypervolemia and hypoxemia # continue ertapenem per GI although will likely stop in coming days # flomax 0.4 mg # straight cath as needed # trend lytes # will discuss with surgery when clinically improved regarding possible cholecystectomy # Feeding - NPO # Analgesia APAP, dilaudid # Sedation trazodone qhs prn # Thromboprophylaxis - SQ hep # Head of bed elevated # Ulcer prophylaxis - NA # Glucose SSI # Skin no skin breakdown # Delirium - delirium precautions ABX ertapenem 04/20/18-present I personally reviewed interpreted radiographic images well as formal radiology reads 04/23/2018 diffuse interstitial pulmonary edema. No focal infiltrate Subjective: Increasing oxygen requirements overnight required oxy mask. CXR with diffuse intersitial and alveolar infiltrates. Albumin stopped and lasix given with improvements in resp status. No fevers, chills, improved diarrhea, no rash Objective: Vital Signs Temp Pulse Resp BP Pulse Ox 36.6 C 111 H 24 H 123/68 H 95 04/23/18 05:00 04/23/18 06:00 04/23/18 06:00 04/23/18 06:00 04/23/18 06:00 Laboratory Results 04/23/18 05:35 04/23/18 05:35 04/22/18 04/23/18 04/24/18 05:59 05:59 05:59 Intake Total 6929 3500 Output Total 460 2825 Balance 6469 675 PT 14.8 SEC (12.0-15.0) 04/20/18 18:58 INR 1.14 (0.83-1.16) 04/20/18 18:58 Physical Exam - Physical Exam General Appearance: alert, no apparent distress EENT: PERRL/EOMI, normal ENT inspection Neck: non-tender, full range of motion Respiratory: other (Mild respiratory distress. No use of accessory muscles. Decreased breath sounds bilateral bases) Cardiac/Chest: normal peripheral pulses, edema, tachycardia, No diastolic murmur , No systolic murmur Abdomen: other (Protuberant, mildly tender to palpation) Back: Normal inspection Skin: normal color, warm/dry, No cyanosis Extremities: normal range of motion, non-tender, pedal edema Neuro/Psych: no motor/sensory deficits, alert, normal mood/affect, oriented x 3 ICD10 Worksheet Patient Problems: Problems Problem Status Onset Ascites Acute Dehydration Acute Gallstone pancreatitis Acute Metabolic acidosis Acute
--- NOTE | 2018-04-23 08:59 | SOAPPROG ---
SOAP Progress Note Assessment/Plan: Assessment: 1. Acute GS pancreatitis 2. Cholelithiasis 3. Ileus 4. NAHID Plan: 1. Monitor LFTs 2. NPO other than ice chips today 3. ok to stop albumin 4. monitor calcium and replete as needed 5. surgical consult for decision making about timing of cholecystectomy 6. Ok to stop antibiotics 04/23/18 08:54 Subjective: CC: Acute pancreatitis Abdominal pain improved Objective: Vital Signs Temp Pulse Resp BP Pulse Ox 36.6 C 111 H 24 H 123/68 H 95 04/23/18 05:00 04/23/18 06:00 04/23/18 06:00 04/23/18 06:00 04/23/18 06:00 Laboratory Results 04/23/18 05:35 04/23/18 05:35 04/22/18 04/23/18 04/24/18 05:59 05:59 05:59 Intake Total 6929 3500 Output Total 460 2825 Balance 6469 675 PT 14.8 SEC (12.0-15.0) 04/20/18 18:58 INR 1.14 (0.83-1.16) 04/20/18 18:58 Physical Exam - Physical Exam General Appearance: no apparent distress Respiratory: No rales, No stridor, No wheezing Cardiac/Chest: regular rate, rhythm, tachycardia Abdomen: distended, other (mild tenderness) ICD10 Worksheet Patient Problems: Problems Problem Status Onset Ascites Acute Dehydration Acute Gallstone pancreatitis Acute Metabolic acidosis Acute
--- NOTE | 2018-04-23 09:28 | HOSPPROG ---
Hospitalist Progress Note Assessment/Plan: 68 yo M w gallstone pancreatitis cholelithiasis/choledocholithiasis: s/p ercp needs cholecystectomy, timing TBD appropriate to wait until intrabdominal inflammation decreased continue abx today (day 3) pancreatitis: improved hemodynamics and exam this AM clear liquids started NAHID: improved w albumin and volume resuscitation volume overload: back off on fluids received lasx overnight for pulm edema (cxr interp by me) polycythemia: likely 2/2 TARI vs volume depletion outpt sleep study proph: sc heparin dispo: icu Subjective: case discussed w suzette mcknight and nikko. received lasix overnight Objective: Vital Signs Temp Pulse Resp BP Pulse Ox 36.6 C 111 H 24 H 123/68 H 95 04/23/18 05:00 04/23/18 06:00 04/23/18 06:00 04/23/18 06:00 04/23/18 06:00 Laboratory Results 04/23/18 05:35 04/23/18 05:35 04/22/18 04/23/18 04/24/18 05:59 05:59 05:59 Intake Total 6929 3500 Output Total 460 2825 Balance 6469 675 PT 14.8 SEC (12.0-15.0) 04/20/18 18:58 INR 1.14 (0.83-1.16) 04/20/18 18:58 - Physical Exam Constitutional: no apparent distress, other (more alert and interactive) Eyes: PERRL, anicteric sclera Ears, Nose, Mouth, Throat: moist mucous membranes, hearing normal Cardiovascular: tachycardia Respiratory: no respiratory distress, other (scattered rhonchi, dependent crackles) Gastrointestinal: other (now w pretty normal bowel sounds. distended w no rebound) Genitourinary: no bladder fullness, No sal[place] in urethra Skin: warm, normal color Musculoskeletal: full muscle strength, no muscle tenderness ICD10 Worksheet Patient Problems: Problems Problem Status Onset Ascites Acute Dehydration Acute Gallstone pancreatitis Acute Metabolic acidosis Acute
[2018-04-23] MEDS: TAMSULOSIN HCL 0.4 MG CAP PO SCH (09:41)
[2018-04-23] MEDS: ENOXAPARIN 40 MG/0.4 ML SYR SC SCH (11:46)
[2018-04-23] MEDS: ERTAPENEM 1 GM in NS 100 ML IV SCH (18:15)
[2018-04-24] MEDS: HYDROmorphONE/DILAUDID 1 MG/ML INJ IVP PRN ×2 (03:24→23:27)
[2018-04-24] MEDS: ENOXAPARIN 40 MG/0.4 ML SYR SC SCH (08:13)
[2018-04-24] MEDS ORDERED: POTASSIUM CL 20 MEQ TAB PO ONE (08:55)
[2018-04-24] MEDS: TAMSULOSIN HCL 0.4 MG CAP PO SCH (09:16)
--- NOTE | 2018-04-24 12:22 | HOSPPROG ---
Hospitalist Progress Note Assessment/Plan: 68 yo M w gallstone pancreatitis cholelithiasis/choledocholithiasis: s/p ercp needs cholecystectomy, timing TBD appropriate to wait until intrabdominal inflammation decreased stop abx today pancreatitis: improved hemodynamics and exam this AM clear liquids started NAHID: improved w albumin and volume resuscitation volume overload: back off on fluids received lasx overnight for pulm edema (cxr interp by me) polycythemia: likely 2/2 TARI vs volume depletion outpt sleep study proph: sc heparin dispo: to floor Subjective: case d/w dr palacios. cr normalized. eating some Objective: Vital Signs Temp Pulse Resp BP Pulse Ox 36.6 C 107 H 14 111/66 91 L 04/24/18 11:23 04/24/18 11:23 04/24/18 11:23 04/24/18 11:23 04/24/18 11:23 Laboratory Results 04/23/18 05:35 04/24/18 03:30 04/23/18 04/24/18 04/25/18 05:59 05:59 05:59 Intake Total 3500 750 250 Output Total 2825 2500 250 Balance 675 -1750 0 PT 14.8 SEC (12.0-15.0) 04/20/18 18:58 INR 1.14 (0.83-1.16) 04/20/18 18:58 - Physical Exam Constitutional: no apparent distress, appears nourished Eyes: PERRL, anicteric sclera Ears, Nose, Mouth, Throat: moist mucous membranes, hearing normal Cardiovascular: regular rate and rhythym, no murmur, rub, or gallop Respiratory: no respiratory distress, no rales or rhonchi Gastrointestinal: distension, No normoactive bowel sounds, No guarding, No rebound Genitourinary: No salinas in urethra Skin: warm Musculoskeletal: full muscle strength Neurologic: AAOx3 Psychiatric: interacting appropriately ICD10 Worksheet Patient Problems: Problems Problem Status Onset Ascites Acute Dehydration Acute Gallstone pancreatitis Acute Metabolic acidosis Acute
--- NOTE | 2018-04-24 12:32 | PDCONSULT ---
Nuclear Fuel Processing Technician Note: #[id number] Dictated Surgical Consult John Jimenez MD, FACS
--- NOTE | 2018-04-24 13:36 | GCON ---
[f rep st] CONSULTATION SURGICAL CONSULT DATE OF CONSULTATION: 04/24/2018 REFERRING PHYSICIAN: Renzo Angulo MD CHIEF COMPLAINT: Resolving gallstone pancreatitis. HISTORY OF PRESENT ILLNESS: The patient is a 68-year-old previously healthy male, who experienced smith dden onset of upper abdominal pain on April 19. He vomited several times and returned h ome, continued to have symptoms and the following day was referred by his primary care physician, Dr. Minesh Nino, to come to the emergency room where he was found to have severe pancreatitis and gallst ones. He was seen in consultation by Dr. Aristides Trevizo, and admitted by Dr. Leroy Coburn. He was adm itted to the hospitalist service and underwent ERCP on 04/21/2018, at which time he was found to have multiple common duct stones. A stent was not placed and a biliary sphincterotomy was performed. Smith bsequently, patient had ongoing signs of hypovolemia and sepsis and required resuscitation in the int ensive care unit. He has begun to show signs of improvement in the last 24 hours and surgical consul tation was requested to discuss the timing of laparoscopic cholecystectomy with the patient. PAST MEDICAL HISTORY: Significant for remote appendectomy in 1956, prior tonsillectomy. Has no prio r history of pancreatitis. MEDICATIONS: The patient's chronic medications prior to admission include Zovirax 400 mg 3 times manuela ly p.r.n., aspirin 81 mg p.o. daily, levothyroxine 50 mcg p.o. daily, and simvastatin 10 mg p.o. at b edtime. 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 Lives in [place]. The patient is a nonsmoker. Denies significant alcohol use. FAMILY HISTORY: Noncontributory. REVIEW OF SYSTEMS: Patient denies any hematemesis. He has had some early return of bowel function, passing black liquidy stools. PHYSICAL EXAMINATION: VITAL SIGNS: Blood pressure 109/69, heart rate is 110, respiratory rate 16-18 , O2 saturation is 89-90 percent on room air. Temperature is 36.6. HEENT: Fading scleral icterus i s noted. There is no cervical adenopathy. LUNGS: Clear. HEART: Regular in rate and rhythm with t achycardia. ABDOMEN: Distended, moderately tense and with hypoactive bowel sounds. There is no foc al tenderness, though there is diffuse upper abdominal tenderness to deep palpation and mild guarding . LABORATORY STUDIES: Hemoglobin 12.7, hematocrit 37.9, white blood cell count 11.39 on 04/23/2018, pl atelets were 114. Chemistry: The patient's magnesium is 2.1, bilirubin 2.2, conjugated bilirubin 1. 1, AST 67, ALT 69, albumin 3.2. Lipase on 04/23/2018, was 1333. The patient's sodium was 143, potas sium 3.6, chloride 111, bicarb 27, BUN 45, and a creatinine of 1.1. This is a decline from a high of 2.8. The patient's admission CT was reviewed and shows a couple of small calcified stones in the dependent portion of the gallbladder. There was an extensive pancreatic phlegmon and associated perihepatic f luid consistent with ascites. The gallbladder was mildly distended. There is no free air. Colon cu toff sign is noted. Small vascular calcifications are noted. IMPRESSION: 1. Pancreatitis, likely due to gallstones. 2. Pancreatic phlegmon. 3. History of hyperlipidemia. 4. Hyperdynamic state, presenting with profound volume deficit, tachycardia and azotemia. This is m ostly resolved, though the patient continues to have a fairly significant postoperative ileus and abd ominal distention. We discussed the standard recommendations of laparoscopic cholecystectomy during the index admission and I would wait another day or 2 before considering proceeding with this given his present condition . We discussed the possibility of long-term complications including pseudocyst formation. If the pa radhames has a fever at this point, I would recommend repeat CT to look for drainable fluid collections. /[id number]/MODL
--- NOTE | 2018-04-24 16:02 | ASMTCMCOM ---
CM Note CM Note Notes: Pt has gallstones, will have surgery when pancreatitis resolves. He is otherwise independent and will discharge home w/support of his when medically stable, CM available for any changes. DC Plan: Independent Date Signed: 04/24/2018 04:01 PM Electronically Signed By:Ana M Cabrera RN
--- NOTE | 2018-04-24 16:26 | PDINTPN ---
Optical Lab Technician Progress Note Assessment/Plan: ASSESSMENT 68-year-old male admitted with severe gallstone pancreatitis status post ERCP 01/2019 # acute hypoxemic resp failure. due to IVF and pancreatitis. Improved with lasix. gallstone pancreatitis, severe. Status post ERCP 04/20/2018 with stone removal and copious sludge # choledocholithiasis. Dr Jimenez consulted for cholecystectomy # hemoconcentration. Secondary to pancreatitis. now improving # hypocalcemia # NAHID, SCr peaked 1.9 # urinary retention. Signs and symptoms consistent with BPH which proceeded admission # leukocytosis # HLD # tachycardia # hypotension. resolved PLAN # low fat diet # surgery consult from Dr Jimenez # maintain euvolemia # supplemental oxygen, wean as tolerated # stop abx # flomax 0.4 mg # straight cath as needed # trend lytes # Feeding - NPO # Analgesia APAP, dilaudid # Sedation trazodone qhs prn # Thromboprophylaxis - SQ hep # Head of bed elevated # Ulcer prophylaxis - NA # Glucose SSI # Skin no skin breakdown # Delirium - delirium precautions # transfer to floor ABX ertapenem 04/20/18-present I personally reviewed interpreted radiographic images well as formal radiology reads 04/23/2018 diffuse interstitial pulmonary edema. No focal infiltrate Subjective: NPO yesterday, clinically improving, SCr trending down, Hgb appropriately low. No fevers, chills, nausea, vomiting, SOB. Objective: Vital Signs Temp Pulse Resp BP Pulse Ox 36.6 C 108 H 16 109/69 92 04/24/18 12:40 04/24/18 12:40 04/24/18 12:40 04/24/18 12:40 04/24/18 12:40 Laboratory Results 04/23/18 05:35 04/24/18 03:30 04/23/18 04/24/18 04/25/18 05:59 05:59 05:59 Intake Total 3500 750 250 Output Total 2825 2500 250 Balance 675 -1750 0 PT 14.8 SEC (12.0-15.0) 04/20/18 18:58 INR 1.14 (0.83-1.16) 04/20/18 18:58 Physical Exam - Physical Exam General Appearance: alert, no apparent distress EENT: PERRL/EOMI, normal ENT inspection, pharynx normal Neck: non-tender, full range of motion Respiratory: chest non-tender, lungs clear, normal breath sounds Cardiac/Chest: normal peripheral pulses, regular rate, rhythm, No edema Abdomen: normal bowel sounds, non-tender, soft Skin: normal color, warm/dry Extremities: normal range of motion, non-tender Neuro/Psych: no motor/sensory deficits, alert, normal mood/affect ICD10 Worksheet Patient Problems: Problems Problem Status Onset Ascites Acute Dehydration Acute Gallstone pancreatitis Acute Metabolic acidosis Acute
[2018-04-25] MEDS: HYDROmorphONE/DILAUDID 1 MG/ML INJ IVP PRN (02:29)
[2018-04-25] MEDS: oxyCODONE IR 5 MG TAB PO PRN ×6 (04:19→20:44)
[2018-04-25 05:37] LABS: PLATELET COUNT 124 10^3/uL (150-400)
--- NOTE | 2018-04-25 07:33 | PDCONSULT ---
Tobacco Farmworker Note: Marcus is still having pain requiring narcotics every 4-6 hours. He denies nausea or vomiting and is passing small amounts of liquid stool intermitantly He remains afebrile and his tachycardia is resolving. PE: lungs: clear to auscultation with diminished breath sounds at both bases CVS: RRR Abd: distended, tympanitic, hypoactive bowel sounds diffused tenderness without guarding or rebound wbc 16.8 LFTS/lipase normalizing Imp: severe pancreatitis/pancreatic phlegmon choledocholithiasis s/p ERCP + sphincterotomy Rec: repeat abd CT with oral/IV contrast if no teodora-pancreatic abscess will proceed with lap amish/IOC next 24-48 hours S MD Barbara, FACS
[2018-04-25] MEDS: ENOXAPARIN 40 MG/0.4 ML SYR SC SCH (08:22)
[2018-04-25] MEDS: TAMSULOSIN HCL 0.4 MG CAP PO SCH (08:22)
--- NOTE | 2018-04-25 10:08 | HOSPPROG ---
Hospitalist Progress Note Assessment/Plan: 68 yo M w gallstone pancreatitis cholelithiasis/choledocholithiasis: s/p ercp needs cholecystectomy, timing TBD appropriate to wait until intrabdominal inflammation decreased stopped abx 04/24 pancreatitis: improved hemodynamics and exam this AM clear liquids started CT today decreased breath sounds R base: encourag IS will look at CT NAHID: improved w albumin and volume resuscitation volume overload: back off on fluids received lasx overnight for pulm edema (cxr interp by me) polycythemia: likely 2/2 TARI vs volume depletion outpt sleep study proph: enox dispo: to floor Subjective: case d/w dr palacios. some diarrhea. still w abd pain Objective: Vital Signs Temp Pulse Resp BP Pulse Ox 36.3 C 87 18 119/69 94 04/25/18 07:47 04/25/18 07:47 04/25/18 08:32 04/25/18 07:47 04/25/18 08:32 Laboratory Results 04/25/18 04:14 04/24/18 04/25/18 04/26/18 05:59 05:59 05:59 Intake Total 750 1370 Output Total 2500 250 Balance -1750 1120 PT 14.8 SEC (12.0-15.0) 04/20/18 18:58 INR 1.14 (0.83-1.16) 04/20/18 18:58 - Physical Exam Constitutional: no apparent distress, appears nourished Eyes: PERRL, anicteric sclera Ears, Nose, Mouth, Throat: moist mucous membranes, hearing normal Cardiovascular: regular rate and rhythym, no murmur, rub, or gallop, No tachycardia Respiratory: no respiratory distress, no rales or rhonchi, other (decreased breath sounds R base) Gastrointestinal: distension, other (hypoactive bowel sounds), No guarding, No rebound Genitourinary: No salinas in urethra Skin: warm, normal color Musculoskeletal: full muscle strength Neurologic: AAOx3 ICD10 Worksheet Patient Problems: Problems Problem Status Onset Ascites Acute Dehydration Acute Gallstone pancreatitis Acute Metabolic acidosis Acute
[2018-04-25] MEDS ORDERED: IOHEXOL 300 mgI/ML (OMNIPAQUE) 150 ML BTL IV ONE (10:29)
[2018-04-25] MEDS: traZODone 50 MG TAB PO PRN (22:24)
[2018-04-26] MEDS: oxyCODONE IR 5 MG TAB PO PRN (01:03)
[2018-04-26 05:23] LABS: PLATELET COUNT 149 10^3/uL (150-400)
[2018-04-26] MEDS: TAMSULOSIN HCL 0.4 MG CAP PO SCH (10:29)
--- NOTE | 2018-04-26 11:03 | SOAPPROG ---
SOAP Progress Note Assessment/Plan: Assessment:severe necrotizing pancreatitis with rising wbc s/p ERCP for choledocholithiasis cholelithiasis Plan: I recommended holding off on cholecystectomy as he has not yet recovered from his pancreatitis clinically. His CT yesterday showed progression to necrosis in the pancreatic tail and probable early pseudocyst formation, his ascites and pleural effusions have worsened. I spent about 30 minutes discussing these findings with him and showed both he and his family the CT on [facility]. I have requested an ID consult from Dr. Leblanc and will discuss with Dr. Angulo 04/26/18 11:08 Subjective: feeling a little better Objective: Vital Signs Temp Pulse Resp BP Pulse Ox 36.4 C 97 16 129/84 H 90 L 04/26/18 07:47 04/26/18 07:47 04/26/18 07:47 04/26/18 07:47 04/26/18 07:47 Microbiology 04/20/18 20:49 Blood Culture - Final Blood 04/20/18 20:45 Blood Culture - Final Blood Laboratory Results 04/26/18 04:29 04/26/18 04:29 04/25/18 04/26/18 04/27/18 05:59 05:59 05:59 Intake Total 1370 1700 Output Total 250 Balance 1120 1700 PT 14.8 SEC (12.0-15.0) 04/20/18 18:58 INR 1.14 (0.83-1.16) 04/20/18 18:58 Physical Exam - Physical Exam General Appearance: alert, mild distress Cardiac/Chest: regular rate, rhythm, tachycardia Abdomen: distended, other (hypoactive bowel sounds, diffusely tender without focal guarding) ICD10 Worksheet Patient Problems: Problems Problem Status Onset Ascites Acute Dehydration Acute Gallstone pancreatitis Acute Metabolic acidosis Acute
--- NOTE | 2018-04-26 11:41 | HOSPPROG ---
Hospitalist Progress Note Assessment/Plan: 68 yo M w gallstone pancreatitis cholelithiasis/choledocholithiasis: s/p ercp needs cholecystectomy, timing TBD appropriate to wait until intrabdominal inflammation decreased stopped abx 04/24 needs cholecystectomy but timing uncertain. see below pancreatitis: improved hemodynamics and exam this AM CT w e/o necrosis and early pseudocyst no longer hyperdynamic but ct and leukocytosis concerning no peritoneal signs suspect he'd benefit from extended course of abx- ID to see i agree w dr palacios that this increases the risk of lap amish and is reason to defer that surgery decreased breath sounds R base: encourag IS CT w atelectasis NAHID: improved w albumin and volume resuscitation volume overload: on po fluids polycythemia: likely 2/2 TARI vs volume depletion outpt sleep study proph: enox dispo: to floor Subjective: case d/w dr palacios. CT w inflamed pancreas, possible necrosis and early pseudocyst (inages reviewed/interp by me). eating some, decreased pain, small bm Objective: Vital Signs Temp Pulse Resp BP Pulse Ox 36.4 C 101 H 18 117/71 93 04/26/18 11:14 04/26/18 11:14 04/26/18 11:14 04/26/18 11:14 04/26/18 11:14 Microbiology 04/20/18 20:49 Blood Culture - Final Blood 04/20/18 20:45 Blood Culture - Final Blood Laboratory Results 04/26/18 04:29 04/26/18 04:29 04/25/18 04/26/18 04/27/18 05:59 05:59 05:59 Intake Total 1370 1700 Output Total 250 Balance 1120 1700 PT 14.8 SEC (12.0-15.0) 04/20/18 18:58 INR 1.14 (0.83-1.16) 04/20/18 18:58 - Physical Exam Constitutional: no apparent distress, appears nourished Eyes: PERRL, anicteric sclera Ears, Nose, Mouth, Throat: moist mucous membranes, hearing normal Cardiovascular: regular rate and rhythym, no murmur, rub, or gallop, No tachycardia Respiratory: no respiratory distress, no rales or rhonchi Gastrointestinal: other (distended w/out rebound or guarding. bowel sounds hypoactive) Genitourinary: No salinas in urethra Skin: warm, normal color Musculoskeletal: full muscle strength, no muscle tenderness Neurologic: AAOx3 Psychiatric: interacting appropriately Lymph, Heme, Immunologic: no cervical LAD ICD10 Worksheet Patient Problems: Problems Problem Status Onset Ascites Acute Dehydration Acute Gallstone pancreatitis Acute Metabolic acidosis Acute
--- NOTE | 2018-04-26 14:46 | PDCONSULT ---
Advanced Practice Nurse Psychotherapist Note: Infectious Diseases Consult Note Impression: 68-year-old man with severe acute pancreatitis secondary to gallstones. His increasing white blood cell count with the evolution 2 0 necrotic and/or hemorrhagic area in the tail of the pancreas is concerning for a superinfected area of necrosis. There is no way to definitively determine whether this is truly infected or if this is part of the evolution towards pseudocyst formation. Is prudent to cover him with antibiotics to limit the extent of necrosis and possible pseudocyst formation while the inflammation resolves. Although he had recent travel to [facility] leading up to his symptoms he had no illnesses while in [facility] or upon returning with a febrile syndrome that would be suggestive of a tropical zoonotic disease, dengue , Zika, yellow fever, or visceral larva migrans that are concerning for being an underlying cause of his pancreatitis. 1. Worsening neutrophilic leukocytosis, likely sequelae of evolving pancreatic process, cannot rule out infection 2. Acute pancreatitis, necrotic and possibly hemorrhagic 3. Acute gallstone pancreatitis 4. Acute kidney injury; resolved Plan: 1. Start ceftriaxone 2 g daily 2. Start metronidazole 500 mg IV q.8 hours 3. Follow CBC 4. Discussed potential side effects of antibiotics including antibiotic associated diarrhea, rash, C diff colitis Mike Liriano MD Infectious Diseases Chief Complaint: Abdominal pain nausea and vomiting Requesting Provider: Dr. Angulo Reason for Referral: Consultation was requested by Dr. Angulo regarding antimicrobial management. HPI: 68-year-old man who presented to the emergency department 1 day after the sudden onset of nausea, vomiting, and abdominal pain. He was in his usual state of health prior to the onset of the symptoms. He notes that the symptoms developed without a febrile prodrome suddenly while he was at work in the evening the day prior to admission. He notes eating lunch as usual and feeling well until 7:00 p.m. When he was in the restroom and had the sudden onset of nausea with emesis. He notes no blood in the emesis. At the same time he developed severe abdominal pain. He vomited multiple times through that evening with ongoing severe abdominal pain. He presented to the emergency department the following day due to non resolution of his symptoms. Since admission he has been has been treated for severe acute pancreatitis with bowel rest, he received 3 days of ertapenem, and supportive care. He currently feels that his abdomen is distended, he is moving his bowels which are mostly loose but some form stools yesterday. He notes the abdominal pain is much better. He has not noted fevers since admission and he did not have fevers prior to admission with these onset of his symptoms. He was noted to have an increasing white blood cell count over the past few days. Repeat CT imaging of his abdomen shows evolution of pancreatitis to a focal area in the tail of the pancreas concerning for necrotic and/or hemorrhagic pancreatitis. He notes that he and his from [facility] approximately 3 weeks prior to his admission. He did not have any illnesses while in [facility], and he did not eat raw or undercooked fish or [place]. [place] walk in the stand barefoot but notes pruritic or linear erythematous lesions on his feet or skin. They did spend some time in a jungle area but he did not develop a febrile illness thereafter. Travel history: Was in [facility] approximately 3 weeks before the onset of pancreatitis. He was in [place] in August of 2017. Past Medical History: Hyperlipidemia; hypothyroidism Past Surgical History: Appendectomy as a child; ACL surgery Social History: Does not use tobacco products; Does not consume marijuana products; Drinks alcohol socially; Does not use any other drugs currently or in the past Family History: No family members with recurrent infections Allergies: NKDA Medications: Reviewed in medical record and confirmed with patient. ROS: 10 organ systems reviewed; pertinent positives and negatives listed in the HPI, all other organ systems negative. Physical Exam: VS: Reviewed Gen: No acute distress; Breathing comfortably with supplemental oxygen; Able to speak in complete sentences Eyes: No conjunctival injection; No scleral icterus HENT: No gross deformities Neck: No limitation in range of motion Pulm: Breath sounds clear to the bases bilaterally; No wheeze, rhonchi, or rales CV: Normal S1 and S2; Regular rate and rhythm; No murmurs, rubs, or gallops; No lower extremity edema Abd: Distended; hypo-active bowel sounds; firm; mild diffuse tenderness Skin: A full skin exam including exposed bilateral upper extremities, bilateral lower extremities to the knees, face, neck, abdomen, chest, and back performed; Skin intact, warm, with no rash MSK: Joints without erythema or edema; No gross limitation in range of motion Ext: No clubbing or cyanosis Neuro: Awake and alert Psych: Normal mood and blunted affect Labs/Imaging: All microbiology testing (culture and non-culture) reviewed in the medical record. Personally reviewed and interpreted the images of the following radiographs: CT abdomen pelvis from admission showing diffusely edematous pancreas compared to CT abdomen pelvis obtained yesterday showing improved overall pancreatic edema with fluid collection in the tail of the pancreas suspicious for necrotizing pancreatitis and or early pseudocyst formation. Medications Generic Name Dose Route Start Last Admin Trade Name Freq PRN Reason Stop Dose Admin Ceftriaxone Sodium 2 gm/ 50 mls @ 100 mls/hr 04/26/18 13:00 04/26/18 13:51 Sodium Chloride IV 05/26/18 12:59 50 mls DAILY JERRELL Protocol Metronidazole/Sodium Chloride 100 mls @ 100 mls/hr 04/26/18 14:00 04/26/18 14 :30 Flagyl 500 Mg (Premix) IV 05/26/18 13:59 100 mls [id number] [facility] Protocol Discontinued Medications Generic Name Dose Route Start Last Admin Trade Name Freq PRN Reason Stop Dose Admin Ertapenem 1 gm/ Sodium 100 mls @ 200 mls/hr 04/20/18 18:13 04/20/18 18:40 Chloride IV 04/20/18 18:42 100 mls EDNOW ONE Protocol Ertapenem 1 gm/ Sodium 100 mls @ 200 mls/hr 04/21/18 17:00 04/21/18 17:27 Chloride IV 04/21/18 20:00 100 mls DAILY@1700 [facility] Protocol Ertapenem 1 gm/ Sodium 100 mls @ 200 mls/hr 04/22/18 17:00 04/23/18 18:15 Chloride IV 05/22/18 16:59 100 mls DAILY@1700 [facility] Protocol Microbiology 04/20/18 20:49 Blood Blood Culture - Final 04/20/18 20:45 Blood Blood Culture - Final Laboratory Tests 04/20/18 04/21/18 04/22/18 17:25 04:05 03:49 WBC 19.36 H Hgb Plt Count Absolute Seg Neuts Absolute Lymphocytes Creatinine Total Bilirubin Conjugated Bilirubin Unconjugated Bilirubin ALT Alkaline Phosphatase Lipase 67112 H 6719 H 04/23/18 04/23/18 04/24/18 05:35 05:35 03:30 WBC 11.39 H Hgb 12.7 L Plt Count 114 L Absolute Seg Neuts Absolute Lymphocytes Creatinine 1.5 H 1.1 Total Bilirubin 2.8 H Conjugated Bilirubin 1.0 H Unconjugated Bilirubin 1.8 H ALT Alkaline Phosphatase Lipase 1333 H 04/24/18 04/25/18 04/25/18 03:30 04:14 04:14 WBC 16.84 H Hgb 13.5 L Plt Count 124 L Absolute Seg Neuts 11.96 H Absolute Lymphocytes 0.51 L Creatinine Total Bilirubin 2.2 H 2.0 H Conjugated Bilirubin 1.1 H 0.8 H Unconjugated Bilirubin 1.1 1.2 H ALT 62 Alkaline Phosphatase 89 Lipase 04/25/18 04/26/18 04/26/18 04:14 04:29 04:29 WBC 25.62 H Hgb 13.0 L Plt Count 149 L Absolute Seg Neuts 18.75 H Absolute Lymphocytes 0.26 L Creatinine 1.1 1.0 Total Bilirubin 1.9 H Conjugated Bilirubin Unconjugated Bilirubin ALT 54 Alkaline Phosphatase 96 Lipase Ongoing monitoring for antimicrobial toxicity with: CBC, BMP.
[2018-04-26] MEDS: traZODone 50 MG TAB PO PRN (22:24)
[2018-04-27] MEDS: oxyCODONE IR 5 MG TAB PO PRN ×3 (02:16→20:41)
[2018-04-27] MEDS: TAMSULOSIN HCL 0.4 MG CAP PO SCH (09:01)
[2018-04-27 09:38] LABS: PLATELET COUNT 163 10^3/uL (150-400)
[2018-04-27] MEDS ORDERED: NS 500 ML IV ONE (11:23)
--- NOTE | 2018-04-27 11:27 | HOSPPROG ---
Hospitalist Progress Note Assessment/Plan: 68 yo M w gallstone pancreatitis cholelithiasis/choledocholithiasis: s/p ercp needs cholecystectomy, timing TBD appropriate to wait until intrabdominal inflammation decreased stopped abx 04/24 needs cholecystectomy but timing uncertain. see below pancreatitis: severe CT w e/o necrosis and early pseudocyst no longer hyperdynamic but ct and leukocytosis concerning no peritoneal signs suspect he'd benefit from extended course of abx- ID to see i agree w dr palacios that this increases the risk of lap amish and is reason to defer that surgery 04/27 rising white count and tachycardia concerning but eating w no pain and exam pretty benign 1. check cdiff 2. IVF support 3. follow clinically 4. probably needs repeat imaging in 1-2 days, sooner for deterioration decreased breath sounds R base: encourag IS CT w atelectasis NAHID: improved w albumin and volume resuscitation volume overload: on po fluids polycythemia: likely 2/2 TARI vs volume depletion outpt sleep study proph: enox dispo: to floor Subjective: case d/w dr jacobs. wbc rising. some diarrhea. afebrile Objective: Vital Signs Temp Pulse Resp BP Pulse Ox 36.4 C 91 16 104/62 91 L 04/27/18 07:41 04/27/18 07:41 04/27/18 07:41 04/27/18 07:41 04/27/18 07:41 Microbiology 04/20/18 20:49 Blood Culture - Final Blood 04/20/18 20:45 Blood Culture - Final Blood Laboratory Results 04/27/18 09:15 04/27/18 09:15 04/26/18 04/27/18 04/28/18 05:59 05:59 05:59 Intake Total 1700 950 Balance 1700 950 PT 14.8 SEC (12.0-15.0) 04/20/18 18:58 INR 1.14 (0.83-1.16) 04/20/18 18:58 - Physical Exam Constitutional: no apparent distress, appears nourished Eyes: PERRL, anicteric sclera Ears, Nose, Mouth, Throat: moist mucous membranes, hearing normal Cardiovascular: regular rate and rhythym, no murmur, rub, or gallop, tachycardia Respiratory: no respiratory distress, no rales or rhonchi Gastrointestinal: other (distended w/out rebound or guarding and remarkably non tender. hypoactive bowel sounds) Genitourinary: No [place] in urethra Skin: warm, normal color Musculoskeletal: full muscle strength Neurologic: AAOx3 ICD10 Worksheet Patient Problems: Problems Problem Status Onset Ascites Acute Dehydration Acute Gallstone pancreatitis Acute Metabolic acidosis Acute
[2018-04-27] MEDS: NS 1,000 ML IV SCH ×2 (11:46→20:49)
[2018-04-27] MEDS: ENOXAPARIN 40 MG/0.4 ML SYR SC SCH (11:46)
--- NOTE | 2018-04-27 12:08 | PCMIDPN ---
Assessment/Plan: Assessment: Gallstone pancreatitis-followed by symptoms consistent with pancreatic inflammation and a follow-up CT scan which shows tail of the pancreas necrosis potential early pseudocyst formation. We are covering him empirically with ceftriaxone and Flagyl in order to prevent infection in this area in the tail of the pancreas. Plan to continue this strategy going forward. Plan: 1. Continue both ceftriaxone and metronidazole at present dose. 2. Follow laboratory data as well as patient clinical report. 04/27/18 13:59 Subjective: Patient is sitting up in chair in his hospital room. is present. He reports no significant worsening symptoms. Still has some distention and discomfort of the abdomen. His appetite seems limited. No fevers or chills. Tolerating ceftriaxone and Flagyl without known issue. Objective: Ceftriaxone # 2 Metronidazole # 1 Vital Signs Temp Pulse Resp BP Pulse Ox 36.4 C 101 H 16 102/68 93 04/27/18 11:46 04/27/18 11:46 04/27/18 11:46 04/27/18 11:46 04/27/18 11:46 Microbiology 04/20/18 20:49 Blood Culture - Final Blood 04/20/18 20:45 Blood Culture - Final Blood Laboratory Results 04/27/18 09:15 04/27/18 09:15 04/26/18 04/27/18 04/28/18 05:59 05:59 05:59 Intake Total 1700 950 Balance 1700 950 - Physical Exam General Appearance: WD/WN, alert, no apparent distress, non-toxic Respiratory: lungs clear, normal breath sounds, No respiratory distress Cardiac/Chest: regular rate, rhythm, No tachycardia Abdomen: soft, distended, tender, No rebound, No mass Skin: normal color, warm/dry, No rash Neuro/Psych: alert, normal mood/affect, oriented x 3 ICD10 Worksheet Patient Problems: Problems Problem Status Onset Ascites Acute Dehydration Acute Gallstone pancreatitis Acute Metabolic acidosis Acute
--- NOTE | 2018-04-27 16:15 | ASMTCMCOM ---
CM Note CM Note Notes: CM met with RN. Pt was started on IV antibiotics, continues to have medical needs. CM to follow as pt progresses. Discharge plan TBD at this time. Plan: TBD Date Signed: 04/27/2018 04:14 PM Electronically Signed By:INES Villa
[2018-04-27] MEDS: traZODone 50 MG TAB PO PRN (20:41)
[2018-04-28] MEDS: oxyCODONE IR 5 MG TAB PO PRN ×4 (02:15→22:48)
[2018-04-28 05:13] LABS: PLATELET COUNT 153 10^3/uL (150-400)
[2018-04-28] MEDS: TAMSULOSIN HCL 0.4 MG CAP PO SCH (08:51)
[2018-04-28] MEDS: ENOXAPARIN 40 MG/0.4 ML SYR SC SCH (08:51)
[2018-04-28] MEDS ORDERED: PROTOCOL POTASSIUM 1 DOSE MISC PRN (09:40)
[2018-04-28] MEDS ORDERED: POTASSIUM CL 10 MEQ TAB PO ONE ×2 (10:46→20:14)
[2018-04-28] MEDS: valACYclovir 500 MG TAB PO SCH ×2 (15:59→21:26)
[2018-04-28] MEDS: PANTOPRAZOLE SODIUM 40 MG VIAL IVP SCH (18:03)
--- NOTE | 2018-04-28 18:03 | PCMIDPN ---
Assessment/Plan: Assessment/Plan: * Gallstone pancreatitis with CT findings of necrotizing pancreatitis/possible early pseudocyst formation: Persistent prominent leukocytosis which may be related to underlying pancreatitis versus infection in the setting of necrotizing pancreatitis. Will continue empiric ceftriaxone and metronidazole and follow clinical response as well as white blood cell count trend over time. 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 Will begin Valacyclovir 1 g orally twice daily. Time spent, greater than 35 min, of which greater than half was spent in education/counseling/coordination of care related to gallstone pancreatitis with superimposed necrosis and prominent leukocytosis and discussion of HSV including plan of care. 04/28/18 17:59 Subjective: Patient complains of painful and pruritic sensation over right buttock similar to what he has experienced with HSV in the past. Persistent abdominal tightness which extends in bandlike pattern across mid abdomen. No fever or chills. Objective: Vital Signs Temp Pulse Resp BP Pulse Ox 36.5 C 104 H 16 97/63 L 94 04/28/18 16:00 04/28/18 16:00 04/28/18 16:00 04/28/18 16:00 04/28/18 16:00 Laboratory Results 04/28/18 04:20 04/28/18 04:20 04/27/18 04/28/18 04/29/18 05:59 05:59 05:59 Intake Total 950 1487 Balance 950 1487 Ceftriaxone # 3 Metronidazole # 2 CT abdomen pelvis from 04/25/2018 reviewed today Laboratory Tests 04/28/18 04:20 Total Bilirubin 1.2 AST 44 ALT 43 Alkaline Phosphatase 149 H Albumin 2.1 L - Physical Exam General Appearance: alert, no apparent distress EENT: No scleral icterus, No thrush Respiratory: lungs clear, No respiratory distress Cardiac/Chest: tachycardia Extremities: pedal edema Abdomen: distended (Mild), tender, No peritoneal signs Skin: rash (Grouped erythematous rash without vesicles over right gluteal region laterally) Neuro/Psych: No confused ICD10 Worksheet Patient Problems: Problems Problem Status Onset Ascites Acute Dehydration Acute Gallstone pancreatitis Acute Metabolic acidosis Acute
--- NOTE | 2018-04-28 20:15 | HOSPPROG ---
Hospitalist Progress Note Assessment/Plan: * Gallstone pancreatitis - necrotizing, early pseudocyst -hold off on amish until inflammation improves * Choledocholithiasis s/p ERCP * SIRS -due to severe pancreatitis -empiric abx per ID - Ceftriaxone, Flagyl * Lactate elevation -due to volume depletion * Acute respiratory failure - due to critical illness/SIRS * BPH * ARF - resolved * HSV gluteal rash -Valtrex Subjective: Minimal appetite Objective: Vital Signs Temp Pulse Resp BP Pulse Ox 37.3 C 105 H 18 101/65 91 L 04/28/18 19:25 04/28/18 19:25 04/28/18 19:25 04/28/18 19:25 04/28/18 19:25 Laboratory Results 04/28/18 04:20 04/28/18 19:16 04/27/18 04/28/18 04/29/18 05:59 05:59 05:59 Intake Total 950 1487 Balance 950 1487 PT 14.8 SEC (12.0-15.0) 04/20/18 18:58 INR 1.14 (0.83-1.16) 04/20/18 18:58 CXR viewed, my personal interpretation is - effusions CT abd - necrotizing tail of pancreas - Physical Exam Constitutional: no apparent distress, appears nourished, not in pain Cardiovascular: regular rate and rhythym, no murmur, rub, or gallop Respiratory: no respiratory distress, no rales or rhonchi, clear to auscultation Gastrointestinal: normoactive bowel sounds, soft, non-tender abdomen, no palpable masses Skin: no rashes or abrasions, no fluctuance, no induration Neurologic: AAOx3, sensation intact bilaterally Psychiatric: interacting appropriately, not anxious, not encephalopathic, thought process linear ICD10 Worksheet Patient Problems: Problems Problem Status Onset Gallstone pancreatitis Acute Dehydration Acute Metabolic acidosis Acute Ascites Acute
[2018-04-29 04:38] LABS: PLATELET COUNT 189 10^3/uL (150-400)
[2018-04-29] MEDS: oxyCODONE IR 5 MG TAB PO PRN ×3 (06:08→19:17)
[2018-04-29] MEDS: LEVOTHYROXINE 25 MCG TAB PO SCH (06:08)
--- NOTE | 2018-04-29 09:29 | PCMIDPN ---
Assessment/Plan: Assessment: 68-year-old man with severe acute gallstone pancreatitis. He has a bulging pancreatic tail necrosis/hemorrhage with early pseudocyst formation. Clinically he is very slowly progressing with decreasing abdominal distention and bloating. He still not able to reliably take p. O. Sufficient to keep up with caloric needs manifested by his hypoalbuminemia. His white blood cell count appears to have plateaued and expected to have a slow decreased to normal. 1. Neutrophilic leukocytosis, sequelae of pancreatic process 2. Severe acute gallstone pancreatitis; improving 3. Acute kidney injury; resolved 4. Hypoalbuminemia Plan: 1. Continue ceftriaxone 2 g daily 2. Continue metronidazole 500 mg IV q.8 hours 3. Repeat CBC with diff every 2-3 days 4. Reviewed in detail potential side effects of beta-lactam antibiotics to include: allergy, rash, nausea, antibiotic-associated diarrhea, Clostridioides difficile colitis. Mike Liriano MD Infectious Diseases 04/29/18 09:30 Subjective: No fever or chills. Denies diarrhea, nausea, rash. Appetite very slowly improving. Ambulating without difficulty or shortness of breath. Had a formed bowel movement today. Objective: Vital Signs Temp Pulse Resp BP Pulse Ox 36.7 C 93 16 100/65 94 04/29/18 08:35 04/29/18 08:35 04/29/18 08:35 04/29/18 08:35 04/29/18 08:35 Laboratory Results 04/29/18 04:25 04/29/18 04:25 04/28/18 04/29/18 04/30/18 05:59 05:59 05:59 Intake Total 1487 450 Output Total 150 Balance 1487 300 Medications Generic Name Dose Route Start Last Admin Trade Name Freq PRN Reason Stop Dose Admin Ceftriaxone Sodium 2 gm/ 50 mls @ 100 mls/hr 04/26/18 13:00 04/28/18 08:51 Sodium Chloride IV 05/26/18 12:59 50 mls DAILY [facility] Protocol Metronidazole/Sodium Chloride 100 mls @ 100 mls/hr 04/26/18 14:00 04/29/18 06 :08 Flagyl 500 Mg (Premix) IV 05/26/18 13:59 100 mls Q8HRS [facility] Protocol Microbiology 04/20/18 20:49 Blood Blood Culture - Final 04/20/18 20:45 Blood Blood Culture - Final Laboratory Tests 04/28/18 04/28/18 04/29/18 04:20 04:20 04:25 WBC 30.26 H 29.07 H Hgb 11.7 L 12.0 L Plt Count 153 189 Absolute Seg Neuts 27.23 H 27.33 H Absolute Band Neuts 2.72 H 1.16 H AST 44 ALT 43 Alkaline Phosphatase 149 H Total Protein 4.5 L 04/29/18 04:25 WBC Hgb Plt Count Absolute Seg Neuts Absolute Band Neuts AST 36 ALT 36 Alkaline Phosphatase 107 Total Protein 4.8 L - Physical Exam General Appearance: no apparent distress, non-toxic EENT: No scleral icterus Respiratory: lungs clear, normal breath sounds, No respiratory distress, No crackles, No wheezing Neck: supple Cardiac/Chest: regular rate, rhythm, No bradycardia, No tachycardia, No diastolic murmur, No systolic murmur Extremities: swelling, No erythema Abdomen: distended, No guarding (Bowel sounds audible and normal active, firm, mild diffuse tenderness) Skin: No rash, No erythema Neuro/Psych: alert, normal mood/affect, oriented x 3, No confused - Time Spent With Patient Time Spent with Patient: greater than 25 minutes (Discussed evolution necrotic and/or hemorrhagic pancreatitis, importance of supplemental nutrition to ensure healing of pancreatitis and healing after upcoming surgeries) Time Spent with Patient: Greater than 25 minutes spent on this patients care, greater than 50% of time spent counseling, educating, and coordinating care regarding the above mentioned plan. ICD10 Worksheet Patient Problems: Problems Problem Status Onset Ascites Acute Dehydration Acute Gallstone pancreatitis Acute Metabolic acidosis Acute
[2018-04-29] MEDS: valACYclovir 500 MG TAB PO SCH ×2 (10:00→21:40)
[2018-04-29] MEDS: ENOXAPARIN 40 MG/0.4 ML SYR SC SCH (10:00)
[2018-04-29] MEDS: PANTOPRAZOLE SODIUM 40 MG VIAL IVP SCH (10:00)
[2018-04-29] MEDS: TAMSULOSIN HCL 0.4 MG CAP PO SCH (10:00)
[2018-04-29] MEDS: NS 1,000 ML IV SCH (14:39)
--- NOTE | 2018-04-29 20:58 | HOSPPROG ---
Hospitalist Progress Note Assessment/Plan: * Gallstone pancreatitis - necrotizing, early pseudocyst -hold off on amish until inflammation improves * Choledocholithiasis s/p ERCP * SIRS -due to severe pancreatitis -empiric abx per ID - Ceftriaxone, Flagyl * Lactate elevation -due to volume depletion * Acute respiratory failure - due to critical illness/SIRS * BPH * ARF - resolved * HSV gluteal rash -Valtrex Subjective: Minimal appetite, still very distended Objective: Vital Signs Temp Pulse Resp BP Pulse Ox 37.3 C 104 H 18 111/70 94 04/29/18 19:34 04/29/18 19:34 04/29/18 19:34 04/29/18 19:34 04/29/18 19:34 Laboratory Results 04/29/18 04:25 04/29/18 19:40 04/28/18 04/29/18 04/30/18 05:59 05:59 05:59 Intake Total 1487 450 350 Output Total 150 600 Balance 1487 300 -250 PT 14.8 SEC (12.0-15.0) 04/20/18 18:58 INR 1.14 (0.83-1.16) 04/20/18 18:58 - Physical Exam Constitutional: no apparent distress, appears nourished, not in pain Cardiovascular: regular rate and rhythym, no murmur, rub, or gallop Respiratory: no respiratory distress, no rales or rhonchi, clear to auscultation Gastrointestinal: distension, No tenderness Skin: no rashes or abrasions, no fluctuance, no induration Neurologic: AAOx3, sensation intact bilaterally Psychiatric: interacting appropriately, not anxious, not encephalopathic, thought process linear ICD10 Worksheet Patient Problems: Problems Problem Status Onset Gallstone pancreatitis Acute Dehydration Acute Metabolic acidosis Acute Ascites Acute
[2018-04-30] MEDS: oxyCODONE IR 5 MG TAB PO PRN ×4 (03:14→23:04)
[2018-04-30] MEDS: NS 1,000 ML IV SCH ×2 (03:15→14:02)
[2018-04-30] MEDS: LEVOTHYROXINE 25 MCG TAB PO SCH (05:33)
[2018-04-30 06:09] LABS: PLATELET COUNT 240 10^3/uL (150-400)
[2018-04-30] MEDS ORDERED: POTASSIUM CL 10 MEQ TAB PO ONE (07:21)
[2018-04-30] MEDS: TAMSULOSIN HCL 0.4 MG CAP PO SCH (09:01)
[2018-04-30] MEDS: valACYclovir 500 MG TAB PO SCH ×2 (09:01→21:16)
[2018-04-30] MEDS: ENOXAPARIN 40 MG/0.4 ML SYR SC SCH (09:02)
[2018-04-30] MEDS: PANTOPRAZOLE SODIUM 40 MG VIAL IVP SCH (09:02)
--- NOTE | 2018-04-30 11:42 | PCMIDPN ---
Assessment/Plan: Assessment: 68-year-old man with severe acute gallstone pancreatitis. White blood cell count is improving slowly which suggests the pancreatic inflammatory process is decreasing in intensity. Pending timing of repeat imaging and will ideally limit his antibiotic therapy to about 7 days. 1. Neutrophilic leukocytosis, sequelae of pancreatic process; improvement 2. Severe acute gallstone pancreatitis; improving 3. Acute kidney injury; resolved 4. Hypoalbuminemia Plan: 1. Continue ceftriaxone 2 g daily; day 5. 2. Continue metronidazole 500 mg IV q.8 hours; day 5. 3. Repeat CBC with diff every 2-3 days 4. Reviewed in detail potential side effects of beta-lactam antibiotics to include: allergy, rash, nausea, antibiotic-associated diarrhea, Clostridioides difficile colitis. Mike Liriano MD Infectious Diseases 04/30/18 11:42 Subjective: No fever or chills. Denies diarrhea, nausea, rash. He has moved his bowels a few loose but mostly formed in spine. Appetite remains limited to liquid intake only and slow p.o. Intake, continues to have significant bloating and abdominal distention particularly after trying to eat or drink. Ambulating without shortness of breath to the restroom. No new concerns today. Objective: Vital Signs Temp Pulse Resp BP Pulse Ox 36.8 C 102 H 16 110/75 92 04/30/18 11:19 04/30/18 11:19 04/30/18 11:19 04/30/18 11:19 04/30/18 11:19 Laboratory Results 04/30/18 04:18 04/30/18 04:18 04/29/18 04/30/18 05/01/18 05:59 05:59 05:59 Intake Total 450 1750 Output Total 150 600 Balance 300 1150 Medications Generic Name Dose Route Start Last Admin Trade Name Freq PRN Reason Stop Dose Admin Ceftriaxone Sodium 2 gm/ 50 mls @ 100 mls/hr 04/26/18 13:00 04/30/18 09:02 Sodium Chloride IV 05/26/18 12:59 50 mls DAILY [facility] Protocol Metronidazole/Sodium Chloride 100 mls @ 100 mls/hr 04/26/18 14:00 04/30/18 05 :33 Flagyl 500 Mg (Premix) IV 05/26/18 13:59 100 mls Q8HRS [facility] Protocol Laboratory Tests 04/27/18 04/28/18 04/29/18 11:49 04:20 04:25 WBC 30.26 H 29.07 H Creatinine AST ALT Total Protein Albumin C. difficile Tox (PCR) NEGATIVE 04/29/18 04/30/18 04/30/18 04:25 04:18 04:18 WBC 24.71 H Creatinine 1.0 1.0 AST 36 38 ALT 36 34 Total Protein 4.8 L 5.0 L Albumin 2.1 L 2.2 L C. difficile Tox (PCR) - Physical Exam General Appearance: no apparent distress, non-toxic EENT: No scleral icterus Respiratory: other (Diminished breath sounds at the bases posteriorly bilaterally, no rales or wheeze), No accessory muscle use Neck: full range of motion, supple Cardiac/Chest: regular rate, rhythm, No bradycardia, No tachycardia, No diastolic murmur, No systolic murmur Extremities: No erythema Abdomen: other (Distended, hypoactive bowel sounds, firm, mild diffuse tenderness, no guarding) Skin: No erythema Neuro/Psych: alert, normal mood/affect, oriented x 3, No confused - Time Spent With Patient Time Spent with Patient: greater than 25 minutes Time Spent with Patient: Greater than 25 minutes spent on this patients care, greater than 50% of time spent counseling, educating, and coordinating care regarding the above mentioned plan. ICD10 Worksheet Patient Problems: Problems Problem Status Onset Ascites Acute Dehydration Acute Gallstone pancreatitis Acute Metabolic acidosis Acute
--- NOTE | 2018-04-30 14:01 | ASMTCMCOM ---
CM Note CM Note Notes: Spoke w/RN, pt has been refusing therapies. Pt ambulates independently and has for assistance. Anticipate he will dc home after 2 more days of IV abx. CM available for any needs. DC Plan: Independent Date Signed: 04/30/2018 02:00 PM Electronically Signed By:Ana M Cabrera RN
[2018-04-30] MEDS: FUROSEMIDE 20 MG/2 ML VIAL IVP SCH (15:19)
--- NOTE | 2018-04-30 18:42 | HOSPPROG ---
Hospitalist Progress Note Assessment/Plan: * Gallstone pancreatitis - necrotizing, early pseudocyst -hold off on amish until inflammation improves * Choledocholithiasis s/p ERCP * SIRS -due to severe pancreatitis -empiric abx per ID - Ceftriaxone, Flagyl x 7 days * Lactate elevation -improved * Acute respiratory failure - due to critical illness/SIRS * BPH * ARF - resolved * HSV gluteal rash -Valtrex * Edema - weight is up significantly -IV lasix Subjective: a little better Objective: Vital Signs Temp Pulse Resp BP Pulse Ox 37.6 C 110 H 16 109/69 91 L 04/30/18 16:00 04/30/18 16:00 04/30/18 16:00 04/30/18 16:00 04/30/18 16:00 Laboratory Results 04/30/18 04:18 04/30/18 04:18 04/29/18 04/30/18 05/01/18 05:59 05:59 05:59 Intake Total 450 1750 Output Total 150 600 Balance 300 1150 PT 14.8 SEC (12.0-15.0) 04/20/18 18:58 INR 1.14 (0.83-1.16) 04/20/18 18:58 - Physical Exam Constitutional: no apparent distress, appears nourished, not in pain Cardiovascular: regular rate and rhythym, no murmur, rub, or gallop Respiratory: no respiratory distress, no rales or rhonchi, clear to auscultation Gastrointestinal: soft, non-tender abdomen, distension, No tenderness, No ascites Skin: no rashes or abrasions, no fluctuance, no induration Neurologic: AAOx3, sensation intact bilaterally Psychiatric: interacting appropriately, not anxious, not encephalopathic, thought process linear ICD10 Worksheet Patient Problems: Problems Problem Status Onset Gallstone pancreatitis Acute Dehydration Acute Metabolic acidosis Acute Ascites Acute
[2018-04-30] MEDS: traZODone 50 MG TAB PO PRN (23:04)
[2018-05-01] MEDS: oxyCODONE IR 5 MG TAB PO PRN ×4 (04:12→19:43)
[2018-05-01] MEDS: LEVOTHYROXINE 25 MCG TAB PO SCH (05:17)
[2018-05-01 05:22] LABS: PLATELET COUNT 287 10^3/uL (150-400)
[2018-05-01] MEDS: valACYclovir 500 MG TAB PO SCH ×2 (09:43→19:43)
[2018-05-01] MEDS: ENOXAPARIN 40 MG/0.4 ML SYR SC SCH (09:43)
[2018-05-01] MEDS: FUROSEMIDE 20 MG/2 ML VIAL IVP SCH ×2 (09:43→15:36)
[2018-05-01] MEDS: TAMSULOSIN HCL 0.4 MG CAP PO SCH (09:43)
--- NOTE | 2018-05-01 12:24 | PCMIDPN ---
Assessment/Plan: Assessment: 68-year-old man with severe acute gallstone pancreatitis. He continues to slowly improve as expected from this degree of severe pancreatitis. Will limit systemic antibiotics to a total of 7 days and reassess with imaging when deemed appropriate from surgical planning perspective. 1. Neutrophilic leukocytosis, sequelae of pancreatic process; improvement 2. Severe acute gallstone pancreatitis; improving 3. Acute kidney injury; resolved 4. Hypoalbuminemia Plan: 1. Continue ceftriaxone 2 g daily; stop after dose on 05/03 2. Continue metronidazole 500 mg IV q.8 hours; stop after dose on 05/03 3. Repeat CBC with diff every 2-3 days 4. Reviewed in detail potential side effects of beta-lactam antibiotics to include: allergy, rash, nausea, antibiotic-associated diarrhea, Clostridioides difficile colitis. Mike Liriano MD Infectious Diseases 05/01/18 12:25 Subjective: No fever or chills overnight. Continues to have bloating feeling with any oral intake, whether that is food or liquids. Overall he feels like this degree of bloating with oral intake is slightly improved. He notes multiple loose bowel movements but no taty diarrhea. Feels like he is breathing comfortably at rest and when ambulating to the restroom. He has not had any rashes while on antibiotic therapy. Objective: Vital Signs Temp Pulse Resp BP Pulse Ox 36.4 C 104 H 18 107/71 94 05/01/18 11:19 05/01/18 11:19 05/01/18 11:19 05/01/18 11:19 05/01/18 11:19 Laboratory Results 05/01/18 04:15 05/01/18 04:15 04/30/18 05/01/18 05/02/18 05:59 05:59 05:59 Intake Total 1750 500 135 Output Total 600 Balance 1150 500 135 Medications Generic Name Dose Route Start Last Admin Trade Name Freq PRN Reason Stop Dose Admin Ceftriaxone Sodium 2 gm/ 50 mls @ 100 mls/hr 04/26/18 13:00 05/01/18 09:45 Sodium Chloride IV 05/02/18 12:59 50 mls DAILY [facility] Protocol Metronidazole/Sodium Chloride 100 mls @ 100 mls/hr 04/26/18 14:00 05/01/18 05 :17 Flagyl 500 Mg (Premix) IV 05/02/18 13:59 100 mls Q8HRS [facility] Protocol Valacyclovir HCl 1,000 mg 04/28/18 15:45 05/01/18 09:43 Valtrex PO 05/28/18 15:44 1,000 mg Q12HRS [facility] Microbiology 04/20/18 20:49 Blood Blood Culture - Final 04/20/18 20:45 Blood Blood Culture - Final Laboratory Tests 04/29/18 04/29/18 04/30/18 04:25 04:25 04:18 WBC 29.07 H 24.71 H Hgb 12.0 L 11.9 L Plt Count 189 240 Absolute Seg Neuts 27.33 H 23.72 H Absolute Lymphocytes 0.29 L 0.25 L Creatinine AST 36 ALT 36 04/30/18 05/01/18 05/01/18 04:18 04:15 04:15 WBC 24.36 H Hgb 11.6 L Plt Count 287 Absolute Seg Neuts 21.90 H Absolute Lymphocytes 0.00 L Creatinine 1.0 1.1 AST 38 ALT 34 - Physical Exam General Appearance: no apparent distress, non-toxic EENT: No scleral icterus Respiratory: No accessory muscle use Extremities: No erythema Abdomen: distended Skin: No erythema Neuro/Psych: alert, normal mood/affect, oriented x 3, No depressed affect - Time Spent With Patient Time Spent with Patient: greater than 25 minutes Time Spent with Patient: Greater than 25 minutes spent on this patients care, greater than 50% of time spent counseling, educating, and coordinating care regarding the above mentioned plan. ICD10 Worksheet Patient Problems: Problems Problem Status Onset Ascites Acute Dehydration Acute Gallstone pancreatitis Acute Metabolic acidosis Acute
--- NOTE | 2018-05-01 17:04 | HOSPPROG ---
Hospitalist Progress Note Assessment/Plan: * Gallstone pancreatitis - necrotizing, early pseudocyst -hold off on amish until inflammation improves -follow-up Dr. Jimenez * Choledocholithiasis s/p ERCP * SIRS -due to severe pancreatitis -empiric abx per ID - Ceftriaxone, Flagyl x 7 days -antibiotic stop date 05/03 * Lactate elevation -improved * Acute respiratory failure -suspect hypoventilation due to abdominal distention -IS * BPH * ARF - resolved * HSV gluteal rash -Valtrex * Edema - weight is up significantly -IV lasix Consider discharge after IV abx complete 05/03 Very slow progress Subjective: Very slight improvement daily Objective: Vital Signs Temp Pulse Resp BP Pulse Ox 37.0 C 107 H 18 108/72 92 05/01/18 15:53 05/01/18 15:53 05/01/18 15:53 05/01/18 15:53 05/01/18 15:53 Laboratory Results 05/01/18 04:15 05/01/18 04:15 04/30/18 05/01/18 05/02/18 05:59 05:59 05:59 Intake Total 1750 500 135 Output Total 600 Balance 1150 500 135 PT 14.8 SEC (12.0-15.0) 04/20/18 18:58 INR 1.14 (0.83-1.16) 04/20/18 18:58 d/w Dr. lott ID regarding antibiotic plan - IV here through 05/03 - Physical Exam Constitutional: no apparent distress, appears nourished, not in pain Cardiovascular: regular rate and rhythym, no murmur, rub, or gallop Respiratory: no respiratory distress, no rales or rhonchi, clear to auscultation Gastrointestinal: distension, No normoactive bowel sounds, No tenderness, No guarding, No rebound Skin: no rashes or abrasions, no fluctuance, no induration Neurologic: AAOx3, sensation intact bilaterally Psychiatric: interacting appropriately, not anxious, not encephalopathic, thought process linear ICD10 Worksheet Patient Problems: Problems Problem Status Onset Gallstone pancreatitis Acute Dehydration Acute Metabolic acidosis Acute Ascites Acute
[2018-05-01] MEDS: traZODone 50 MG TAB PO PRN (22:28)
[2018-05-02] MEDS: oxyCODONE IR 5 MG TAB PO PRN ×4 (02:27→20:45)
[2018-05-02] MEDS: LEVOTHYROXINE 25 MCG TAB PO SCH (05:19)
[2018-05-02 05:55] LABS: PLATELET COUNT 357 10^3/uL (150-400)
[2018-05-02] MEDS: TAMSULOSIN HCL 0.4 MG CAP PO SCH (10:32)
[2018-05-02] MEDS: valACYclovir 500 MG TAB PO SCH ×2 (10:32→20:46)
[2018-05-02] MEDS: ENOXAPARIN 40 MG/0.4 ML SYR SC SCH (10:33)
[2018-05-02] MEDS: FUROSEMIDE 20 MG/2 ML VIAL IVP SCH (11:23)
--- NOTE | 2018-05-02 16:26 | HOSPPROG ---
Hospitalist Progress Note Assessment/Plan: * Gallstone pancreatitis - necrotizing, early pseudocyst -hold off on amish until inflammation improves -follow-up Dr. Jimenez * Choledocholithiasis s/p ERCP * SIRS -due to severe pancreatitis -empiric abx per ID - Ceftriaxone, Flagyl x 7 days -antibiotic stop date 05/03 * Lactate elevation -improved * Acute respiratory failure -suspect hypoventilation due to abdominal distention -IS * BPH * ARF - resolved * HSV gluteal rash -Valtrex * Edema - weight is up significantly -Holding IV Lasix today Subjective: Patient reports continued abdominal pain and distention this AM Objective: Vital Signs Temp Pulse Resp BP Pulse Ox 36.8 C 103 H 20 97/65 L 94 05/02/18 15:35 05/02/18 15:35 05/02/18 15:35 05/02/18 15:35 05/02/18 15:35 Laboratory Results 05/02/18 04:24 05/02/18 04:24 05/01/18 05/02/18 05/03/18 05:59 05:59 05:59 Intake Total 500 1772 Balance 500 1772 PT 14.8 SEC (12.0-15.0) 04/20/18 18:58 INR 1.14 (0.83-1.16) 04/20/18 18:58 - Physical Exam Constitutional: uncomfortable Eyes: PERRL Ears, Nose, Mouth, Throat: moist mucous membranes Cardiovascular: regular rate and rhythym Respiratory: no respiratory distress Gastrointestinal: distension, No tenderness, No guarding, No rebound Skin: warm Musculoskeletal: full muscle strength Neurologic: AAOx3 Psychiatric: interacting appropriately ICD10 Worksheet Patient Problems: Problems Problem Status Onset Ascites Acute Dehydration Acute Gallstone pancreatitis Acute Metabolic acidosis Acute
--- NOTE | 2018-05-02 20:16 | SOAPPROG ---
SOAP Progress Note Assessment/Plan: Assessment:severe necrotizing pancreatitis with persistent leukocytosis despite one week of Rocephin/Flagyl antibiotics are scheduled to be completed tomorrow. s/p ERCP for choledocholithiasis cholelithiasis Plan: I recommended holding off on cholecystectomy as he has not yet recovered from his pancreatitis clinically. Course of antibiotics due to be completed tomorrow (empiric one week coverage ) repeat CT imaging for rising wbc/fever 04/26/18 11:08 05/02/18 20:12 Objective: Vital Signs Temp Pulse Resp BP Pulse Ox 36.8 C 103 H 20 97/65 L 94 05/02/18 15:35 05/02/18 15:35 05/02/18 15:35 05/02/18 15:35 05/02/18 15:35 Laboratory Results 05/02/18 04:24 05/02/18 18:54 05/01/18 05/02/18 05/03/18 05:59 05:59 05:59 Intake Total 500 1772 775 Output Total 450 Balance 500 1772 325 PT 14.8 SEC (12.0-15.0) 04/20/18 18:58 INR 1.14 (0.83-1.16) 04/20/18 18:58 - Pending Discharge Pending Discharge Within 24 Hours: No Pending Discharge Within 48 Hours: No Physical Exam - Physical Exam General Appearance: alert, mild distress Cardiac/Chest: regular rate, rhythm, tachycardia Abdomen: normal bowel sounds, soft, distended, other (tympanitic/tense with diffuse mild tenderness, no guarding) ICD10 Worksheet Patient Problems: Problems Problem Status Onset Ascites Acute Dehydration Acute Gallstone pancreatitis Acute Metabolic acidosis Acute
[2018-05-03] MEDS: traZODone 50 MG TAB PO PRN (00:45)
[2018-05-03] MEDS: oxyCODONE IR 5 MG TAB PO PRN ×5 (01:05→20:08)
[2018-05-03] MEDS: LEVOTHYROXINE 25 MCG TAB PO SCH (05:25)
[2018-05-03 05:47] LABS: PLATELET COUNT 481 10^3/uL (150-400)
[2018-05-03] MEDS: valACYclovir 500 MG TAB PO SCH ×2 (08:38→20:09)
[2018-05-03] MEDS: ENOXAPARIN 40 MG/0.4 ML SYR SC SCH (08:38)
[2018-05-03] MEDS: TAMSULOSIN HCL 0.4 MG CAP PO SCH (08:38)
--- NOTE | 2018-05-03 13:17 | ASMTCMCOM ---
CM Note CM Note Notes: Unfortunately, patient is requiring more O2 and has increasing abdominal distention. Discharge pending resolution of these. He will go home with his when stable. Current CM Discharge plan: independent Date Signed: 05/03/2018 01:16 PM Electronically Signed By:Marleen Perez RN
[2018-05-03] MEDS ORDERED: IOPAMIDOL (ISOVUE-300) 100 ML BTL ONE (13:26)
--- NOTE | 2018-05-03 14:15 | PCMIDPN ---
Assessment/Plan: Assessment # Leukocytosis, likely due to pancreatic process; incremental improvement , AF # Severe acute gallstone pancreatitis, CT done today. No change in abdominal sx. Overall he feels a bit better # Hypoxia: possibly volume, no cough or other infectious signs Rec: remain off abx therapy, continue to follow serial wbc, will f/u on formal CT read Subjective: patient reports feeling incrementally better. Early satiety limiting eating but no abdominal pain w eating Objective: Vital Signs Temp Pulse Resp BP Pulse Ox 36.8 C 97 18 92/69 L 93 05/03/18 10:50 05/03/18 10:50 05/03/18 10:50 05/03/18 10:50 05/03/18 10:50 Laboratory Results 05/03/18 04:16 05/03/18 04:16 05/02/18 05/03/18 05/04/18 05:59 05:59 05:59 Intake Total 1772 775 450 Output Total 750 Balance 1772 25 450 Gen: Pleasant male sitting up in chair doing work NAD HEENT: very dry MM, geographic tongue Neck Supple CV: RRR Chest Decrease bs bases, shallow inspiration Abd: tense ascites, no abdominal pain, bowel sounds present Skin: pallor, no rash Ext: 2+ WAYNE AxOx 4, moving all 4 ext equally - Time Spent With Patient Time Spent with Patient: greater than 25 minutes Time Spent with Patient: Greater than 25 minutes spent on this patients care, greater than 50% of time spent counseling, educating, and coordinating care regarding the above mentioned plan. ICD10 Worksheet Patient Problems: Problems Problem Status Onset Ascites Acute Dehydration Acute Gallstone pancreatitis Acute Metabolic acidosis Acute
[2018-05-03] MEDS ORDERED: FUROSEMIDE 40 MG/4 ML VIAL IVP ONE (14:29)
--- NOTE | 2018-05-03 14:38 | HOSPPROG ---
Hospitalist Progress Note Assessment/Plan: * Gallstone pancreatitis - necrotizing, early pseudocyst - Repeat CT ordered for this afternoon given continued abdominal distention and leukocytosis - hold off on amish until inflammation improved and will follow-up General Surgery, Dr. Jimenez, as outpatient * Choledocholithiasis s/p ERCP * SIRS -due to severe pancreatitis -empiric abx per ID - Ceftriaxone, Flagyl x 7 days, antibiotic stop date 05/03 -ID recommending * Edema - significant abdominal distention - Held IV Lasix yesterday - Will give 40 mg IVP Lasix this afternoon, assess response and redose as needed * Acute respiratory failure -suspect hypoventilation due to abdominal distention -CXR performed today showing CHF with b/l opacities - IVP Lasix as above * BPH * ARF - resolved * HSV gluteal rash -Valtrex Subjective: Patient reports continued distention and abdominal pain Objective: Vital Signs Temp Pulse Resp BP Pulse Ox 36.8 C 97 18 92/69 L 93 05/03/18 10:50 05/03/18 10:50 05/03/18 10:50 05/03/18 10:50 05/03/18 10:50 Laboratory Results 05/03/18 04:16 05/03/18 04:16 05/02/18 05/03/18 05/04/18 05:59 05:59 05:59 Intake Total 1772 775 450 Output Total 750 Balance 1772 25 450 PT 14.8 SEC (12.0-15.0) 04/20/18 18:58 INR 1.14 (0.83-1.16) 04/20/18 18:58 - Physical Exam Constitutional: no apparent distress Eyes: PERRL Ears, Nose, Mouth, Throat: moist mucous membranes Cardiovascular: tachycardia Respiratory: no respiratory distress Gastrointestinal: normoactive bowel sounds, distension, No guarding, No rebound Skin: warm Musculoskeletal: full muscle strength Neurologic: AAOx3 Psychiatric: interacting appropriately ICD10 Worksheet Patient Problems: Problems Problem Status Onset Ascites Acute Dehydration Acute Gallstone pancreatitis Acute Metabolic acidosis Acute
[2018-05-04] MEDS: oxyCODONE IR 5 MG TAB PO PRN ×5 (00:14→20:51)
[2018-05-04 05:56] LABS: PLATELET COUNT 598 10^3/uL (150-400)
[2018-05-04] MEDS: LEVOTHYROXINE 25 MCG TAB PO SCH (05:59)
[2018-05-04] MEDS: ENOXAPARIN 40 MG/0.4 ML SYR SC SCH (08:44)
[2018-05-04] MEDS: valACYclovir 500 MG TAB PO SCH ×2 (08:44→20:51)
[2018-05-04] MEDS: TAMSULOSIN HCL 0.4 MG CAP PO SCH (08:44)
[2018-05-04] MEDS: FUROSEMIDE 40 MG/4 ML VIAL IVP SCH (10:00)
--- NOTE | 2018-05-04 12:21 | SOAPPROG ---
SOAP Progress Note Assessment/Plan: Assessment/Plan: 1. Pancreatitis (from gallstones). Even though his lipase is now normal, he continues in the midst of moderately-severe inflammation, based on CT scan findings, continued pain, partial ileus, high inflammatory markers (wbc, plt), etc. Overall, he is making slow progress, with bowel movements, tolerating po somewhat, pain under control, no fever, etc. 2. Pseudocysts developing on CT. Not unexpected, with the severity of his pancreatitis. However, no fever, etc. In general, these will resolve on their own over time. No need for sampling, drainage, etc., at this time. - CPM - buffcap IV - diuretics, as per hospitalist service - does not need daily blood draws - eventual amish, once recovered We will follow informally. Else, please call if questions [phone]). Thanks! 05/04/18 12:16 Subjective: cc: pancreatitis This is my first visit with this pt. Continued generalized abd pain, bloating, distension. Pain meds prn help. One good bm yesterday. Tolerating food, but relatively smaller in amounts. Objective: Vital Signs Temp Pulse Resp BP Pulse Ox 36.8 C 109 H 18 102/67 90 L 05/04/18 11:27 05/04/18 11:27 05/04/18 11:27 05/04/18 11:27 05/04/18 11:27 Laboratory Results 05/04/18 04:56 05/04/18 04:56 05/03/18 05/04/18 05/05/18 05:59 05:59 05:59 Intake Total 775 1450 Output Total 750 1300 Balance 25 150 PT 14.8 SEC (12.0-15.0) 04/20/18 18:58 INR 1.14 (0.83-1.16) 04/20/18 18:58 Physical Exam - Physical Exam General Appearance: WD/WN, alert, no apparent distress EENT: PERRL/EOMI, normal ENT inspection, pharynx normal, TMs normal Neck: non-tender, full range of motion, supple, normal inspection Respiratory: chest non-tender, lungs clear, normal breath sounds Cardiac/Chest: normal peripheral pulses, regular rate, rhythm Peripheral Pulses: 2+: carotid (R), carotid (L), femoral (R), femoral (L), dorsalis-pedis (R), dorsalis-pedis (L) Abdomen: soft, distended, No non-tender (generalize abd tenderness, mild-mod) Male Genitalia: deferred Rectal: deferred Back: Normal inspection Skin: normal color, warm/dry Lymphatic: no adenopathy Extremities: normal range of motion, non-tender, normal inspection, normal capillary refill Neuro/Psych: no motor/sensory deficits, alert, normal mood/affect, oriented x 3 ICD10 Worksheet Patient Problems: Problems Problem Status Onset Ascites Acute Dehydration Acute Gallstone pancreatitis Acute Metabolic acidosis Acute
--- NOTE | 2018-05-04 12:53 | PCMIDPN ---
Assessment/Plan: Assessment: 68-year-old man with severe acute gallstone pancreatitis with evolution of inflammatory changes to reflect pseudocyst formation. Suspect ongoing leukocytosis is related to the evolution of this pancreatic inflammation , and not related to an active infection. No compelling indication to pursue sampling and will continue to monitor off antibiotics. 1. Neutrophilic leukocytosis, sequelae of pancreatic process; stable 2. Severe acute gallstone pancreatitis with likely pseudocyst formation; stable 3. Acute kidney injury; resolved 4. Hypoalbuminemia Plan: 1. Continue to monitor off antibiotics 2. Limit lab testing to weekly as his persistent leukocytosis likely reflects underlying evolution of severe pancreatitis and not active infection 3. Antibiotic history: ceftriaxone (2.17.19-2.23.19); Metronidazole (2.17.19- 2.23.19); Ertapenem (2.11.19-2.13.19) Mike Liriano MD Infectious Diseases 05/04/18 12:54 Subjective: No fever or chills. Loose bowel movement once daily. Ongoing abdominal bloating and discomfort. No new concerns today. Objective: Vital Signs Temp Pulse Resp BP Pulse Ox 36.8 C 109 H 18 102/67 90 L 05/04/18 11:27 05/04/18 11:27 05/04/18 11:27 05/04/18 11:27 05/04/18 11:27 Laboratory Results 05/04/18 04:56 05/04/18 04:56 05/03/18 05/04/18 05/05/18 05:59 05:59 05:59 Intake Total 775 1450 Output Total 750 1300 Balance 25 150 Laboratory Tests 04/29/18 05/01/18 05/02/18 04:25 04:15 04:24 WBC 29.07 H Hgb 12.0 L Plt Count 287 357 Creatinine Total Protein Albumin 05/03/18 05/03/18 05/04/18 04:16 04:16 04:56 WBC Hgb Plt Count 481 H Creatinine 1.3 1.2 Total Protein 5.6 L Albumin 2.3 L 05/04/18 04:56 WBC 26.73 H Hgb 12.3 L Plt Count 598 H Creatinine Total Protein Albumin - Physical Exam General Appearance: no apparent distress, non-toxic EENT: No scleral icterus Respiratory: No accessory muscle use Neck: full range of motion, supple Extremities: swelling, No erythema Abdomen: normal bowel sounds, distended, other (Diffuse tenderness to palpation , mild) Skin: No rash, No erythema Neuro/Psych: alert, normal mood/affect, oriented x 3, No confused - Time Spent With Patient Time Spent with Patient: greater than 25 minutes Time Spent with Patient: Greater than 25 minutes spent on this patients care, greater than 50% of time spent counseling, educating, and coordinating care regarding the above mentioned plan. ICD10 Worksheet Patient Problems: Problems Problem Status Onset Ascites Acute Dehydration Acute Gallstone pancreatitis Acute Metabolic acidosis Acute
--- NOTE | 2018-05-04 16:08 | HOSPPROG ---
Hospitalist Progress Note Assessment/Plan: * Gallstone pancreatitis - necrotizing, early pseudocyst - Repeat CT performed on 05/03 showing 2 fluid collections, likely pseudocysts - GI consulted today who recommend continuing supportive management, no need for drainage of fluid collections at this time - hold off on amish until inflammation improved and will follow-up General Surgery, Dr. Jimenez, as outpatient * Choledocholithiasis s/p ERCP * SIRS -due to severe pancreatitis -empiric abx per ID - Ceftriaxone, Flagyl x 7 days, antibiotic stop date 05/03 -ID recommending no further abx at this tie * Edema - significant abdominal distention - Held IV Lasix yesterday - S/p 40 mg IVP Lasix this morning, will continue 40 mg IVP qd - Assess response and redose as needed * Acute respiratory failure -suspect hypoventilation due to abdominal distention -CXR performed on 05/03 showing CHF with b/l opacities - IVP Lasix as above * BPH * ARF - resolved * HSV gluteal rash -Valtrex Subjective: Patient reports continued abdominal discomfort with distention Objective: Vital Signs Temp Pulse Resp BP Pulse Ox 36.8 C 99 20 101/66 93 05/04/18 15:25 05/04/18 15:25 05/04/18 15:25 05/04/18 15:25 05/04/18 15:25 Laboratory Results 05/04/18 04:56 05/04/18 04:56 05/03/18 05/04/18 05/05/18 05:59 05:59 05:59 Intake Total 775 1450 Output Total 750 1300 Balance 25 150 PT 14.8 SEC (12.0-15.0) 04/20/18 18:58 INR 1.14 (0.83-1.16) 04/20/18 18:58 - Physical Exam Constitutional: chronically ill appearing Eyes: PERRL Ears, Nose, Mouth, Throat: moist mucous membranes Cardiovascular: regular rate and rhythym Respiratory: no respiratory distress, reduced air movement Gastrointestinal: tenderness, ascites, distension Skin: warm Musculoskeletal: generalized weakness Neurologic: AAOx3 Psychiatric: interacting appropriately ICD10 Worksheet Patient Problems: Problems Problem Status Onset Ascites Acute Dehydration Acute Gallstone pancreatitis Acute Metabolic acidosis Acute
[2018-05-05] MEDS: oxyCODONE IR 5 MG TAB PO PRN ×4 (02:28→20:15)
[2018-05-05] MEDS: LEVOTHYROXINE 25 MCG TAB PO SCH (05:50)
[2018-05-05] MEDS: TAMSULOSIN HCL 0.4 MG CAP PO SCH (07:57)
[2018-05-05] MEDS: valACYclovir 500 MG TAB PO SCH ×2 (07:57→20:15)
[2018-05-05] MEDS: FUROSEMIDE 40 MG/4 ML VIAL IVP SCH ×3 (07:57→14:38)
[2018-05-05] MEDS: ENOXAPARIN 40 MG/0.4 ML SYR SC SCH (07:57)
--- NOTE | 2018-05-05 12:54 | HOSPPROG ---
Hospitalist Progress Note Assessment/Plan: * Gallstone pancreatitis - necrotizing, early pseudocyst - Repeat CT performed on 05/03 showing 2 fluid collections, likely pseudocysts - GI consulted who recommend continuing supportive management, no need for drainage of fluid collections at this time - hold off on amish until inflammation improved and will follow-up General Surgery, Dr. Jimenez, as outpatient * Choledocholithiasis s/p ERCP * SIRS -due to severe pancreatitis -empiric abx per ID - Ceftriaxone, Flagyl x 7 days, antibiotic stop date 05/03 -ID recommending no further abx at this time * Edema - significant abdominal distention - Restarted 40 mg IVP Lasix x1 yesterday - Will increase to 40 mg Lasix IVP BID today - Assess response and redose as needed, monitor I/O, BMP * Acute respiratory failure -suspect hypoventilation due to abdominal distention and pulmonary edema -CXR performed on 05/03 showing CHF with b/l opacities -IVP Lasix as above * Hyponatremia - Na 129 this AM, in setting of volume overload - Lasix as above - Continue to monitor Na * BPH * HSV gluteal rash -Valtrex Subjective: Patient reports continued abdominal distention today Objective: Vital Signs Temp Pulse Resp BP Pulse Ox 36.5 C 98 18 106/65 90 L 05/05/18 07:20 05/05/18 07:20 05/05/18 07:20 05/05/18 07:20 05/05/18 07:20 Laboratory Results 05/04/18 04:56 05/05/18 04:16 05/04/18 05/05/18 05/06/18 05:59 05:59 05:59 Intake Total 1450 1500 Output Total 1300 950 400 Balance 150 550 -400 PT 14.8 SEC (12.0-15.0) 04/20/18 18:58 INR 1.14 (0.83-1.16) 04/20/18 18:58 - Physical Exam Constitutional: chronically ill appearing Eyes: PERRL Ears, Nose, Mouth, Throat: moist mucous membranes Cardiovascular: regular rate and rhythym Respiratory: no respiratory distress, reduced air movement Gastrointestinal: ascites, distension, No tenderness Genitourinary: no bladder tenderness Skin: warm Musculoskeletal: generalized weakness Neurologic: AAOx3 Psychiatric: interacting appropriately ICD10 Worksheet Patient Problems: Problems Problem Status Onset Ascites Acute Dehydration Acute Gallstone pancreatitis Acute Metabolic acidosis Acute
[2018-05-06] MEDS: LEVOTHYROXINE 25 MCG TAB PO SCH (04:24)
[2018-05-06] MEDS: TAMSULOSIN HCL 0.4 MG CAP PO SCH (08:33)
[2018-05-06] MEDS: valACYclovir 500 MG TAB PO SCH ×2 (08:33→21:04)
[2018-05-06] MEDS: FUROSEMIDE 40 MG/4 ML VIAL IVP SCH ×2 (08:34→17:08)
[2018-05-06] MEDS: ENOXAPARIN 40 MG/0.4 ML SYR SC SCH (08:34)
--- NOTE | 2018-05-06 10:24 | SOAPPROG ---
SOAP Progress Note Assessment/Plan: Assessment/Plan: 1. Pancreatitis (from gallstones). Even though his lipase is now normal, he continues in the midst of moderately-severe inflammation, based on CT scan findings, continued pain, partial ileus, high inflammatory markers (wbc, plt), etc. Overall, he is making slow progress, with bowel movements, passing gas, tolerating po somewhat, pain under control, no fever, etc. 2. Pseudocysts developing on CT. Not unexpected, with the severity of his pancreatitis. However, no fever, etc. In general, these will resolve on their own over time. No need for sampling, drainage, etc., at this time. 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 He is still very systemic, and will have a prolonged course. If he's not taking it adequate calories, with diet and supplementation, he might need TPN while in-house. As per hospitalist service. We will follow informally. Else, please call if questions [phone]). 05/06/18 10:25 Subjective: cc: GS pancreatitis Somewhat decreased pain, and use of pain meds. Passing gas, with a bm. Tolerating po, with one diet where he ate all roast beef, but wonder how much calories he's actually getting daily. Objective: Vital Signs Temp Pulse Resp BP Pulse Ox 36.9 C 100 16 107/70 93 05/06/18 07:12 05/06/18 07:12 05/06/18 07:12 05/06/18 07:12 05/06/18 07:12 Laboratory Results 05/04/18 04:56 05/06/18 04:23 05/05/18 05/06/18 05/07/18 05:59 05:59 05:59 Intake Total 1500 1000 Output Total 950 1400 220 Balance 550 -400 -220 PT 14.8 SEC (12.0-15.0) 04/20/18 18:58 INR 1.14 (0.83-1.16) 04/20/18 18:58 Physical Exam - Physical Exam General Appearance: WD/WN, alert, no apparent distress EENT: PERRL/EOMI, normal ENT inspection, pharynx normal, TMs normal Neck: non-tender, full range of motion, supple, normal inspection Respiratory: chest non-tender, lungs clear, normal breath sounds Cardiac/Chest: normal peripheral pulses, regular rate, rhythm Peripheral Pulses: 2+: carotid (R), carotid (L), femoral (R), femoral (L), dorsalis-pedis (R), dorsalis-pedis (L) Abdomen: normal bowel sounds, non-tender, distended Male Genitalia: deferred Rectal: deferred Back: Normal inspection Skin: normal color, warm/dry Lymphatic: no adenopathy Extremities: normal range of motion, non-tender, normal capillary refill, pedal edema Neuro/Psych: no motor/sensory deficits, alert, normal mood/affect, oriented x 3 ICD10 Worksheet Patient Problems: Problems Problem Status Onset Ascites Acute Dehydration Acute Gallstone pancreatitis Acute Metabolic acidosis Acute
[2018-05-06] MEDS: PANTOPRAZOLE SODIUM 40 MG TAB PO SCH (10:47)
--- NOTE | 2018-05-06 13:58 | HOSPPROG ---
Hospitalist Progress Note Assessment/Plan: * Gallstone pancreatitis - necrotizing, early pseudocyst - Repeat CT performed on 05/03 showing 2 fluid collections, likely pseudocysts - GI consulted who recommend continuing supportive management, no need for drainage of fluid collections at this time - hold off on amish until inflammation improved and will follow-up General Surgery, Dr. Jimenez, as outpatient * Choledocholithiasis s/p ERCP * SIRS -due to severe pancreatitis -empiric abx per ID - Ceftriaxone, Flagyl x 7 days, antibiotic stop date 05/03 -ID recommending no further abx at this time * Edema - significant abdominal distention and LE edema - Restarted 40 mg IVP Lasix x1 on 05/04, increased to 40 mg Lasix IVP BID on - Net negative 400 ml in past 24 hours with improvement in Cr and NA as well as decrease in weight - Will continue 40 mg IV Lasix BID - Continue to monitor I/O, BMP, daily weights - If no significant decrease in ascites/abdominal distention over next few days, consider paracentesis * Acute respiratory failure -suspect hypoventilation due to abdominal distention and pulmonary edema -CXR performed on 05/03 showing CHF with b/l opacities -IVP Lasix as above - Currently at 5L 02, not on home oxygen, wean 02 as tolerated * Hyponatremia - Na 131 this AM, in setting of volume overload - Lasix as above - Continue to monitor Na * BPH * HSV gluteal rash -Valtrex Subjective: Patient reports no significant changes overnight Objective: Vital Signs Temp Pulse Resp BP Pulse Ox 36.9 C 100 16 107/70 93 05/06/18 07:12 05/06/18 07:12 05/06/18 07:12 05/06/18 07:12 05/06/18 07:12 Laboratory Results 05/04/18 04:56 05/06/18 04:23 05/05/18 05/06/18 05/07/18 05:59 05:59 05:59 Intake Total 1500 1000 Output Total 950 1400 670 Balance 550 -400 -670 PT 14.8 SEC (12.0-15.0) 04/20/18 18:58 INR 1.14 (0.83-1.16) 04/20/18 18:58 - Physical Exam Constitutional: chronically ill appearing Eyes: PERRL Ears, Nose, Mouth, Throat: moist mucous membranes Cardiovascular: tachycardia Respiratory: no respiratory distress, reduced air movement Gastrointestinal: ascites, distension Skin: warm Musculoskeletal: generalized weakness Neurologic: AAOx3 Psychiatric: interacting appropriately ICD10 Worksheet Patient Problems: Problems Problem Status Onset Ascites Acute Dehydration Acute Gallstone pancreatitis Acute Metabolic acidosis Acute
--- NOTE | 2018-05-06 14:31 | ASMTCMCOM ---
CM Note CM Note Notes: Pt recovery moving slowly but is not getting therapies. Plan remains the same, will dc home with support of when medically stable. CM available for any changes. DC Plan: Independent Date Signed: 05/06/2018 02:31 PM Electronically Signed By:Ana M Cabrera RN
[2018-05-06] MEDS: oxyCODONE IR 5 MG TAB PO PRN (21:04)
[2018-05-07] MEDS: LEVOTHYROXINE 25 MCG TAB PO SCH (05:17)
[2018-05-07 05:42] LABS: PLATELET COUNT 490 10^3/uL (150-400)
[2018-05-07] MEDS: ENOXAPARIN 40 MG/0.4 ML SYR SC SCH (08:12)
[2018-05-07] MEDS: TAMSULOSIN HCL 0.4 MG CAP PO SCH (08:14)
[2018-05-07] MEDS: PANTOPRAZOLE SODIUM 40 MG TAB PO SCH (08:14)
[2018-05-07] MEDS: FUROSEMIDE 40 MG/4 ML VIAL IVP SCH ×2 (08:15→15:26)
[2018-05-07] MEDS: valACYclovir 500 MG TAB PO SCH (08:15)
--- NOTE | 2018-05-07 10:05 | SOAPPROG ---
SOAP Progress Note Assessment/Plan: Assessment/Plan: 1. Pancreatitis (from gallstones). Better today, with less pain, bloating, and with decreased inflammatory markers (wbc, plts). - CPM 2. Pseudocysts developing on CT. Not unexpected, with the severity of his pancreatitis. However, no fever, etc. In general, these will resolve on their own over time. No need for sampling, drainage, etc., at this time. - diuretics, as per hospitalist service (he is still fluid overloaded) - eventual amish, once recovered 05/07/18 10:03 Subjective: cc: GS pancreatitis Doing somewhat better, with less pain, bloating. Tolerating po. No rigors, chills, sweats. Objective: Vital Signs Temp Pulse Resp BP Pulse Ox 36.7 C 98 18 115/70 92 05/07/18 08:00 05/07/18 08:00 05/07/18 08:00 05/07/18 08:00 05/07/18 09:25 Laboratory Results 05/07/18 04:15 05/07/18 04:15 05/06/18 05/07/18 05/08/18 05:59 05:59 05:59 Intake Total 1000 800 Output Total 1400 1620 450 Balance -400 -820 -450 PT 14.8 SEC (12.0-15.0) 04/20/18 18:58 INR 1.14 (0.83-1.16) 04/20/18 18:58 Physical Exam - Physical Exam General Appearance: WD/WN, alert, no apparent distress EENT: PERRL/EOMI, normal ENT inspection, pharynx normal, TMs normal Neck: non-tender, full range of motion, supple, normal inspection Respiratory: chest non-tender, lungs clear, normal breath sounds Cardiac/Chest: normal peripheral pulses, regular rate, rhythm Peripheral Pulses: 2+: carotid (R), carotid (L), femoral (R), femoral (L), dorsalis-pedis (R), dorsalis-pedis (L) Abdomen: normal bowel sounds, non-tender, soft Male Genitalia: deferred Rectal: deferred Back: Normal inspection Skin: normal color, warm/dry Lymphatic: no adenopathy Extremities: normal range of motion, non-tender, normal inspection, normal capillary refill Neuro/Psych: no motor/sensory deficits, alert, normal mood/affect, oriented x 3 ICD10 Worksheet Patient Problems: Problems Problem Status Onset Ascites Acute Dehydration Acute Gallstone pancreatitis Acute Metabolic acidosis Acute
[2018-05-07] MEDS: oxyCODONE IR 5 MG TAB PO PRN ×2 (10:48→21:56)
--- NOTE | 2018-05-07 12:22 | PCMIDPN ---
Assessment/Plan: Assessment: 68-year-old man with severe acute gallstone pancreatitis with evolution of inflammatory changes to reflect pseudocyst formation. Slowly improving systemic inflammation with decreased diarrhea thrombocytosis and decreased total white blood cell count, he has changes correlating with his very slow clinical improvement. Slow improvement is expected with this degree of pancreatic inflammation. No overt evidence for an active superinfection of his evolving pancreatic pseudocyst formation. Will continue to monitor periodically off antibiotics. 1. Neutrophilic leukocytosis, sequelae of pancreatic process; improved 2. Severe acute gallstone pancreatitis with likely pseudocyst formation; stable 3. Thrombocytosis; improved 4. Hypoalbuminemia Plan: 1. Continue to monitor off antibiotics 2. Stopped valacyclovir 3. Limit lab testing to weekly as his persistent leukocytosis likely reflects underlying evolution of severe pancreatitis and not active infection 4. Antibiotic history: ceftriaxone (2.17.19-2.23.19); Metronidazole (2.17.19- 2.23.19); Ertapenem (2.11.19-2.13.19) Mike Lirinao MD Infectious Diseases 05/07/18 12:19 Subjective: He has had no fevers or chills, occasional night sweats. Intensity of night sweats has decreased when he does have them. Feels the bloating sensation has improved somewhat and overall his swelling is improving. The HSV lesion has completely crusted over and has never healed. Objective: Vital Signs Temp Pulse Resp BP Pulse Ox 36.9 C 106 H 20 97/65 L 92 05/07/18 11:24 05/07/18 11:24 05/07/18 11:24 05/07/18 11:24 05/07/18 11:24 Laboratory Results 05/07/18 04:15 05/07/18 04:15 05/06/18 05/07/18 05/08/18 05:59 05:59 05:59 Intake Total 1000 800 Output Total 1400 1620 975 Balance -400 820 975 - Physical Exam General Appearance: no apparent distress, non-toxic EENT: No scleral icterus Respiratory: No accessory muscle use Extremities: swelling, No erythema Skin: No erythema Neuro/Psych: alert, oriented x 3, depressed affect, No normal mood/affect, No confused ICD10 Worksheet Patient Problems: Problems Problem Status Onset Ascites Acute Dehydration Acute Gallstone pancreatitis Acute Metabolic acidosis Acute
--- NOTE | 2018-05-07 17:07 | HOSPPROG ---
Hospitalist Progress Note Assessment/Plan: # severe necrotizing gallstone pancreatitis with pseudocysts - overall improving; tolerating PO # anasarca - cont lasix - add diamox given rising bicarb # choledocholithiasis s/p ERCP # acute hypoxic resp failure - d/t abd process and anasarca # HSV gluteal rash - s/p valtrex # SIRS - abx stopped today - follow WBC infrequently Subjective: still bloated; food tastes bad; eating without additional pain Objective: Vital Signs Temp Pulse Resp BP Pulse Ox 36.8 C 106 H 16 112/67 92 05/07/18 14:58 05/07/18 14:58 05/07/18 14:58 05/07/18 14:58 05/07/18 14:58 Laboratory Results 05/07/18 04:15 05/07/18 04:15 05/06/18 05/07/18 05/08/18 05:59 05:59 05:59 Intake Total 1000 800 Output Total 1400 1620 1350 Balance -400 -820 -1350 PT 14.8 SEC (12.0-15.0) 04/20/18 18:58 INR 1.14 (0.83-1.16) 04/20/18 18:[address] 's reviewed - Physical Exam Constitutional: no apparent distress, appears nourished Cardiovascular: regular rate and rhythym, no murmur, rub, or gallop Respiratory: no respiratory distress, no rales or rhonchi, clear to auscultation Gastrointestinal: normoactive bowel sounds, soft, non-tender abdomen, no palpable masses Musculoskeletal: other (3+ bilat LE edema to knees) ICD10 Worksheet Patient Problems: Problems Problem Status Onset Ascites Acute Dehydration Acute Gallstone pancreatitis Acute Metabolic acidosis Acute
[2018-05-07] MEDS: acetaZOLAMIDE 250 MG TAB PO SCH (17:29)
[2018-05-08] MEDS: LEVOTHYROXINE 25 MCG TAB PO SCH (05:05)
[2018-05-08] MEDS: ENOXAPARIN 40 MG/0.4 ML SYR SC SCH (09:27)
[2018-05-08] MEDS: FUROSEMIDE 40 MG/4 ML VIAL IVP SCH ×2 (09:29→15:05)
[2018-05-08] MEDS: acetaZOLAMIDE 250 MG TAB PO SCH (09:37)
[2018-05-08] MEDS: PANTOPRAZOLE SODIUM 40 MG TAB PO SCH (09:37)
[2018-05-08] MEDS: TAMSULOSIN HCL 0.4 MG CAP PO SCH (09:37)
--- NOTE | 2018-05-08 12:39 | SOAPPROG ---
SOAP Progress Note Assessment/Plan: Assessment/Plan: 1. Pancreatitis (from gallstones). Continues to improve daily, albeit slowly. 2. Pseudocysts developing on CT. Not unexpected, with the severity of his pancreatitis. However, no fever, etc. In general, these will resolve on their own over time. No need for sampling, drainage, etc., at this time. - diuretics, as per hospitalist service (he is still fluid overloaded) - eventual amish, once recovered - once more euvolemic, could consider d/c home soon, with home care. His pain is tolerable with oral meds, he's eating, etc. He is still certainly in the midst of systemic inflammation from his pancreatitis, but that will most likely take weeks to resolve. I am going off-service, so will sign off. Upon discharge, please schedule him a f/u ov with his outpt GI doc, Dr. Trevizo. Otherwise, please call if we can be of further help [phone]). 05/08/18 12:39 Subjective: cc: GS pancreatitis About the same as yesterday. Tolerating po. Pain c/w oral narcotics prn. No rigors, chills, sweats. Objective: Vital Signs Temp Pulse Resp BP Pulse Ox 36.8 C 100 16 106/65 92 05/08/18 12:04 05/08/18 12:04 05/08/18 12:04 05/08/18 12:04 05/08/18 12:04 Laboratory Results 05/07/18 04:15 05/08/18 05:23 05/07/18 05/08/18 05/09/18 05:59 05:59 05:59 Intake Total 800 900 400 Output Total 1620 2350 450 Balance -820 -1450 -50 PT 14.8 SEC (12.0-15.0) 04/20/18 18:58 INR 1.14 (0.83-1.16) 04/20/18 18:58 I/O negative Physical Exam - Physical Exam General Appearance: WD/WN, alert, no apparent distress EENT: PERRL/EOMI, normal ENT inspection, pharynx normal, TMs normal Neck: non-tender, full range of motion, supple, normal inspection Respiratory: chest non-tender, lungs clear, normal breath sounds Cardiac/Chest: normal peripheral pulses, regular rate, rhythm Peripheral Pulses: 2+: carotid (R), carotid (L), femoral (R), femoral (L), dorsalis-pedis (R), dorsalis-pedis (L) Abdomen: normal bowel sounds, non-tender, soft Male Genitalia: deferred Rectal: deferred Back: Normal inspection Skin: normal color, warm/dry Lymphatic: no adenopathy Extremities: normal range of motion, non-tender, normal capillary refill, pedal edema Neuro/Psych: no motor/sensory deficits, alert, normal mood/affect, oriented x 3 ICD10 Worksheet Patient Problems: Problems Problem Status Onset Ascites Acute Dehydration Acute Gallstone pancreatitis Acute Metabolic acidosis Acute
--- NOTE | 2018-05-08 14:01 | HOSPPROG ---
Hospitalist Progress Note Assessment/Plan: 68y male with c/o severe abd pain. First encounter, chart reviewed. D/W Dr Ortiz and Dr Jimenez. # severe necrotizing gallstone pancreatitis with pseudocysts - overall improving; tolerating PO # anasarca - cont lasix - DC diamox #ARF -monitor # choledocholithiasis s/p ERCP -no surgery currently -fu Dr Jimenez outpt # acute hypoxic resp failure - d/t abd process and anasarca # HSV gluteal rash - s/p valtrex -better # SIRS - abx stopped - follow WBC infrequently #Dispo -cont diuresis -likely DC home in 1-2 days Subjective: Up in the chair. Feels ok. Still uncomfortable. Objective: Vital Signs Temp Pulse Resp BP Pulse Ox 36.8 C 100 16 106/65 92 05/08/18 12:04 05/08/18 12:04 05/08/18 12:04 05/08/18 12:04 05/08/18 12:04 Laboratory Results 05/07/18 04:15 05/08/18 05:23 05/07/18 05/08/18 05/09/18 05:59 05:59 05:59 Intake Total 800 900 400 Output Total 1620 2350 450 Balance -820 -1450 -50 PT 14.8 SEC (12.0-15.0) 04/20/18 18:58 INR 1.14 (0.83-1.16) 04/20/18 18:58 - Physical Exam Constitutional: appears nourished, not in pain, uncomfortable Eyes: PERRL, anicteric sclera, EOMI Ears, Nose, Mouth, Throat: moist mucous membranes, hearing normal, ears appear normal Cardiovascular: tachycardia, edema, No JVD Respiratory: no respiratory distress, no rales or rhonchi, reduced air movement Gastrointestinal: normoactive bowel sounds, tenderness, ascites, distension Skin: warm, normal color, No mottled Musculoskeletal: normal joint ROM, no joint effusions, generalized weakness Neurologic: AAOx3 Psychiatric: interacting appropriately, not anxious, not encephalopathic, thought process linear ICD10 Worksheet Patient Problems: Problems Problem Status Onset Gallstone pancreatitis Acute Dehydration Acute Metabolic acidosis Acute Ascites Acute
[2018-05-08] MEDS: oxyCODONE IR 5 MG TAB PO PRN (19:54)
[2018-05-09] MEDS: LEVOTHYROXINE 25 MCG TAB PO SCH (05:30)
[2018-05-09] MEDS: FUROSEMIDE 40 MG/4 ML VIAL IVP SCH ×2 (08:35→16:07)
[2018-05-09] MEDS: ENOXAPARIN 40 MG/0.4 ML SYR SC SCH (08:36)
[2018-05-09] MEDS: TAMSULOSIN HCL 0.4 MG CAP PO SCH (08:36)
[2018-05-09] MEDS: PANTOPRAZOLE SODIUM 40 MG TAB PO SCH (08:36)
--- NOTE | 2018-05-09 12:45 | ASMTCMCOM ---
CM Note CM Note Notes: Pt improving and may be able to d/c over next 1-2 days. The d/c plan is still home indpendent with his . CM will continue to follow for any change in d/c needs. D/C plan: home independent Date Signed: 05/09/2018 12:44 PM Electronically Signed By:DAKOTA Browne
--- NOTE | 2018-05-09 13:53 | HOSPPROG ---
Hospitalist Progress Note Assessment/Plan: 68y male with c/o severe abd pain. # severe necrotizing gallstone pancreatitis with pseudocysts - overall improving; tolerating PO # anasarca - cont lasix - DC diamox - down 5lbs #ARF -monitor -labs in am # choledocholithiasis s/p ERCP -no surgery currently -fu Dr Jimenez outpt # acute hypoxic resp failure - d/t abd process and anasarca # HSV gluteal rash - s/p valtrex -better # SIRS - abx stopped - follow WBC infrequently #Dispo -cont diuresis -likely DC home in 1-2 days Subjective: Up in chair. Feeling a bit better. Low energy. Objective: Vital Signs Temp Pulse Resp BP Pulse Ox 36.6 C 98 18 97/66 L 92 05/09/18 07:57 05/09/18 12:02 05/09/18 12:02 05/09/18 07:57 05/09/18 12:02 Laboratory Results 05/07/18 04:15 05/08/18 05:23 05/08/18 05/09/18 05/10/18 05:59 05:59 05:59 Intake Total 900 400 200 Output Total 2350 1575 Balance -1450 -1175 200 PT 14.8 SEC (12.0-15.0) 04/20/18 18:58 INR 1.14 (0.83-1.16) 04/20/18 18:58 - Physical Exam Constitutional: chronically ill appearing, uncomfortable Eyes: PERRL, anicteric sclera Ears, Nose, Mouth, Throat: moist mucous membranes, hearing normal Cardiovascular: edema, No JVD Respiratory: no respiratory distress, reduced air movement Gastrointestinal: ascites, distension, No tenderness Skin: warm, normal color Musculoskeletal: no joint effusions, generalized weakness Neurologic: AAOx3 Psychiatric: interacting appropriately, not anxious, not encephalopathic ICD10 Worksheet Patient Problems: Problems Problem Status Onset Gallstone pancreatitis Acute Dehydration Acute Metabolic acidosis Acute Ascites Acute
[2018-05-10] MEDS: oxyCODONE IR 5 MG TAB PO PRN ×2 (00:49→23:12)
[2018-05-10] MEDS: LEVOTHYROXINE 25 MCG TAB PO SCH (06:56)
[2018-05-10] MEDS: PANTOPRAZOLE SODIUM 40 MG TAB PO SCH (09:04)
[2018-05-10] MEDS: TAMSULOSIN HCL 0.4 MG CAP PO SCH (09:04)
[2018-05-10] MEDS: FUROSEMIDE 40 MG/4 ML VIAL IVP SCH ×2 (09:04→15:38)
[2018-05-10] MEDS: ENOXAPARIN 40 MG/0.4 ML SYR SC SCH (09:04)
--- NOTE | 2018-05-10 12:01 | HOSPPROG ---
Hospitalist Progress Note Assessment/Plan: 68y male with c/o severe abd pain. # severe necrotizing gallstone pancreatitis with pseudocysts - overall improving; tolerating PO # anasarca - cont lasix - DC diamox - edema better #ARF -monitor -stable # choledocholithiasis s/p ERCP -no surgery currently -fu Dr Jimenez outpt # acute hypoxic resp failure - d/t abd process and anasarca # HSV gluteal rash - s/p valtrex -better # SIRS - abx stopped - follow WBC infrequently #Dispo -cont diuresis -likely DC home in 1-2 days Subjective: Feeling better today. Pain better. Objective: Vital Signs Temp Pulse Resp BP Pulse Ox 36.4 C 91 16 107/73 94 05/10/18 08:20 05/10/18 09:07 05/10/18 09:07 05/10/18 08:20 05/10/18 09:07 Laboratory Results 05/10/18 04:10 05/10/18 04:10 05/09/18 05/10/18 05/11/18 05:59 05:59 05:59 Intake Total 400 1250 Output Total 1575 650 400 Balance -1175 600 -400 PT 14.8 SEC (12.0-15.0) 04/20/18 18:58 INR 1.14 (0.83-1.16) 04/20/18 18:58 - Physical Exam Constitutional: chronically ill appearing, uncomfortable Eyes: PERRL, anicteric sclera Ears, Nose, Mouth, Throat: moist mucous membranes, hearing normal Cardiovascular: edema, No JVD Respiratory: no respiratory distress, reduced air movement Gastrointestinal: ascites, distension, No tenderness Skin: warm, normal color, No mottled Musculoskeletal: no joint effusions, generalized weakness Neurologic: AAOx3 Psychiatric: interacting appropriately, not anxious, not encephalopathic ICD10 Worksheet Patient Problems: Problems Problem Status Onset Gallstone pancreatitis Acute Dehydration Acute Metabolic acidosis Acute Ascites Acute
--- NOTE | 2018-05-10 16:57 | ASMTCMCOM ---
CM Note CM Note Notes: CM discussed with Chio Rashid, patient continues to improve. Likely to discharge home tomorrow, possibly with Home O2. CM to follow. D/C plan: likely home independent with . Date Signed: 05/10/2018 04:56 PM Electronically Signed By:Stephanie Araujo
[2018-05-11] MEDS: LEVOTHYROXINE 25 MCG TAB PO SCH (06:27)
[2018-05-11] MEDS: ENOXAPARIN 40 MG/0.4 ML SYR SC SCH (08:51)
[2018-05-11] MEDS: FUROSEMIDE 40 MG/4 ML VIAL IVP SCH ×2 (08:51→16:02)
[2018-05-11] MEDS: PANTOPRAZOLE SODIUM 40 MG TAB PO SCH (08:51)
[2018-05-11] MEDS: TAMSULOSIN HCL 0.4 MG CAP PO SCH (08:51)
[2018-05-11 10:16] LABS: PLATELET COUNT 524 10^3/uL (150-400)
--- NOTE | 2018-05-11 13:53 | HOSPPROG ---
Hospitalist Progress Note Assessment/Plan: 68 year old male admitted with necrotizing pancreatitis. Now fluid overloaded. severe necrotizing gallstone pancreatitis with pseudocysts. Continues to improve. Tolerating regular diet. deferring amish until outpatient. -Continue current management anasarca- still significantly fluid overloaded, and hypoxic. -cont lasix 40mg IV BID -daily weights -I/O ARF- creatinine normalized. Monitor renal function and lytes on lasix choledocholithiasis s/p ERCP -no surgery currently -fu Dr Jimenez outpt acute hypoxic resp failure , still requiring oxygen. Likely due to fluid overload. - d/t abd process and anasarca -continue diuresis HSV gluteal rash - s/p valtrex -better SIRS - abx stopped - follow WBC infrequently Dispo -cont diuresis -likely DC home in 1-2 days Subjective: feels fine. Objective: Vital Signs Temp Pulse Resp BP Pulse Ox 36.8 C 104 H 18 106/67 94 05/11/18 07:29 05/11/18 07:29 05/11/18 07:29 05/11/18 07:29 05/11/18 07:29 Laboratory Results 05/11/18 10:05 05/11/18 10:05 05/10/18 05/11/18 05/12/18 05:59 05:59 05:59 Intake Total 1250 2295 Output Total 650 2075 475 Balance 600 220 -475 PT 14.8 SEC (12.0-15.0) 04/20/18 18:58 INR 1.14 (0.83-1.16) 04/20/18 18:58 - Physical Exam Constitutional: no apparent distress, appears nourished, not in pain Eyes: PERRL, anicteric sclera, EOMI Ears, Nose, Mouth, Throat: moist mucous membranes, hearing normal, ears appear normal, no oral mucosal ulcers Cardiovascular: regular rate and rhythym, no murmur, rub, or gallop, edema Respiratory: inspiratory crackles Gastrointestinal: normoactive bowel sounds, soft, non-tender abdomen, no palpable masses Genitourinary: no bladder fullness, no bladder tenderness, no renal bruits Skin: no rashes or abrasions, no fluctuance, no induration Musculoskeletal: full muscle strength, no muscle tenderness, normal joint ROM Neurologic: AAOx3, sensation intact bilaterally Psychiatric: interacting appropriately, not anxious, not encephalopathic, thought process linear Lymph, Heme, Immunologic: no cervical LAD, no supraclavicular LAD ICD10 Worksheet Patient Problems: Problems Problem Status Onset Ascites Acute Dehydration Acute Gallstone pancreatitis Acute Metabolic acidosis Acute
[2018-05-11] MEDS: oxyCODONE IR 5 MG TAB PO PRN (23:18)
[2018-05-12 05:22] LABS: PLATELET COUNT 459 10^3/uL (150-400)
[2018-05-12] MEDS: LEVOTHYROXINE 25 MCG TAB PO SCH (06:01)
[2018-05-12] MEDS: ENOXAPARIN 40 MG/0.4 ML SYR SC SCH (08:25)
[2018-05-12] MEDS: TAMSULOSIN HCL 0.4 MG CAP PO SCH (08:25)
[2018-05-12] MEDS: PANTOPRAZOLE SODIUM 40 MG TAB PO SCH (08:25)
[2018-05-12] MEDS: FUROSEMIDE 40 MG/4 ML VIAL IVP SCH ×2 (08:25→16:50)
[2018-05-12] MEDS ORDERED: BUMETANIDE 1 MG/4 ML VIAL IVP ONE (09:27)
--- NOTE | 2018-05-12 12:18 | HOSPPROG ---
Hospitalist Progress Note Assessment/Plan: 68 year old male admitted with necrotizing pancreatitis. Now fluid overloaded. severe necrotizing gallstone pancreatitis with pseudocysts. Continues to improve. Tolerating regular diet. deferring amish until outpatient. -Continue current management -Follow up with Dr. Jimenez outpatient for amish anasarca- still significantly fluid overloaded, and hypoxic. Todays weight is 100.8 Kg, up from 90kg on admit, but down from 108 at one point this admission. He has been on 40IV BID lasix but yesterday drank 2.3 liters and only urinated 2.5 liters. he is not responding well to the lasix. -cont lasix 40mg IV BID -trial of Bumex 1mg IV today and assess response -daily weights -I/O -fluid restrict Acute hypoxemic Respiratory failure- still requiring 3 liters to maintain sats. CXR reviewed this morning showing large effusion. will try to diurese with lasix but if no response may need thoracentesis. ARF- creatinine normalized. Monitor renal function and lytes on lasix choledocholithiasis s/p ERCP -no surgery currently -fu Dr Jimenez outpt acute hypoxic resp failure , still requiring oxygen. Likely due to fluid overload. - d/t abd process and anasarca -continue diuresis HSV gluteal rash - s/p valtrex -better SIRS - abx stopped - follow WBC infrequently Dispo -cont diuresis -likely DC home once weight down. Subjective: still short of breath with any movement. Objective: Vital Signs Temp Pulse Resp BP Pulse Ox 36.8 C 92 16 107/72 94 05/12/18 07:48 05/12/18 07:48 05/12/18 07:48 05/12/18 07:48 05/12/18 07:48 Laboratory Results 05/12/18 04:20 05/12/18 04:20 05/11/18 05/12/18 05/13/18 05:59 05:59 05:59 Intake Total 2295 890 Output Total 2075 1425 450 Balance 220 -535 -450 PT 14.8 SEC (12.0-15.0) 04/20/18 18:58 INR 1.14 (0.83-1.16) 04/20/18 18:58 - Physical Exam Constitutional: no apparent distress, appears nourished, not in pain Eyes: PERRL, anicteric sclera, EOMI Ears, Nose, Mouth, Throat: moist mucous membranes, hearing normal, ears appear normal, no oral mucosal ulcers Cardiovascular: regular rate and rhythym, no murmur, rub, or gallop, edema Respiratory: reduced air movement Gastrointestinal: normoactive bowel sounds, soft, non-tender abdomen, no palpable masses Genitourinary: no bladder fullness, no bladder tenderness, no renal bruits Skin: no rashes or abrasions, no fluctuance, no induration Musculoskeletal: full muscle strength, no muscle tenderness, normal joint ROM Neurologic: AAOx3, sensation intact bilaterally Psychiatric: interacting appropriately, not anxious, not encephalopathic, thought process linear Lymph, Heme, Immunologic: no cervical LAD, no supraclavicular LAD ICD10 Worksheet Patient Problems: Problems Problem Status Onset Ascites Acute Dehydration Acute Gallstone pancreatitis Acute Metabolic acidosis Acute
[2018-05-12] MEDS ORDERED: FUROSEMIDE 100 MG/10 ML VIAL IVP ONE (16:05)
[2018-05-12] MEDS ORDERED: FUROSEMIDE 40 MG/4 ML VIAL IVP ONE (16:30)
[2018-05-13] MEDS: traZODone 50 MG TAB PO PRN ×2 (02:11→22:38)
[2018-05-13 05:33] LABS: PLATELET COUNT 447 10^3/uL (150-400)
[2018-05-13] MEDS: LEVOTHYROXINE 25 MCG TAB PO SCH (06:40)
[2018-05-13] MEDS: TAMSULOSIN HCL 0.4 MG CAP PO SCH (08:09)
[2018-05-13] MEDS: ENOXAPARIN 40 MG/0.4 ML SYR SC SCH (08:09)
[2018-05-13] MEDS: PANTOPRAZOLE SODIUM 40 MG TAB PO SCH (08:09)
--- NOTE | 2018-05-13 08:42 | HOSPPROG ---
Hospitalist Progress Note Assessment/Plan: 68 year old male admitted with necrotizing pancreatitis. First encounter, chart reviewed. *severe necrotizing gallstone pancreatitis with pseudocysts, improved -Continue current management -Follow up with Dr. Jimenez outpatient for cholecystectomy *anasarca -weight today is 99.6 kg, on admission was 90 kg -was on iv Lasix, was given a dose of 80 g last night -daily weights -I/O -fluid restrict *Acute hypoxemic Respiratory failure -due to moderate, large pleural effusion -will order a thoracentesis. *ARF- creatinine normalized *choledocholithiasis s/p ERCP -no surgery currently -fu Dr Jimenez outpt * HSV gluteal rash - s/p valtrex -better *SIRS - abx stopped - follow WBC infrequently plan: get a thoracentesis today, after this will give a dose of IV lasix, spoke w Dr Betancourt, he will see Marcus today. In addition; will get an echo due to the persistence of his swelling. Subjective: Marcus says swelling is slightly better in his abdomen, legs are worse, having trouble w talking Objective: Vital Signs Temp Pulse Resp BP Pulse Ox 36.8 C 94 16 90/64 L 94 05/13/18 07:19 05/13/18 07:19 05/13/18 07:19 05/13/18 07:19 05/13/18 07:19 Laboratory Results 05/13/18 04:24 05/13/18 04:24 05/12/18 05/13/18 05/14/18 05:59 05:59 05:59 Intake Total 890 1290 Output Total 1425 1775 200 Balance -535 -485 -200 PT 14.8 SEC (12.0-15.0) 04/20/18 18:58 INR 1.14 (0.83-1.16) 04/20/18 18:58 - Physical Exam Constitutional: chronically ill appearing, uncomfortable Eyes: PERRL Ears, Nose, Mouth, Throat: hearing normal Cardiovascular: regular rate and rhythym, edema (bilateral lower extremity swelling in lower extremities upto his abdomen) Respiratory: reduced air movement, bronchial breath sounds, No no respiratory distress (increase wob with talking) Gastrointestinal: normoactive bowel sounds, ascites Skin: warm Musculoskeletal: generalized weakness Neurologic: AAOx3 Psychiatric: interacting appropriately ICD10 Worksheet Patient Problems: Problems Problem Status Onset Ascites Acute Dehydration Acute Gallstone pancreatitis Acute Metabolic acidosis Acute
[2018-05-13] MEDS ORDERED: FUROSEMIDE 100 MG/10 ML VIAL IVP ONE (09:45)
[2018-05-13] MEDS ORDERED: FUROSEMIDE 40 MG/4 ML VIAL IVP ONE ×2 (10:00→14:00)
[2018-05-13 10:48] LABS: INR 1.3 (0.83-1.16); PROTIME(PATIENT) 15.6 SEC (12.0-15.0)
[2018-05-13] MEDS ORDERED: LIDOCAINE 1% 300 MG/30 ML SDV ONE (12:02)
--- NOTE | 2018-05-13 12:22 | ASMTCMCOM ---
CM Note CM Note Notes: Pts case discussed w/ Mandy Hargrove NP. Pt is getting a thoracentesis today. An echo has been ordered. Pt will most likely d/c independent when medically stable. No therapies ordered at this time. CM available for changes. Plan: Independent Date Signed: 05/13/2018 12:22 PM Electronically Signed By:INES Earl
--- NOTE | 2018-05-13 14:54 | ECHO ---
[email or web address] [address] [address] Main: [phone] Echocardiography Examination Transthoracic Name: CHUCK HOLBROOK MR#: [id number] Study Date: 05/13/2018 Study Time: 09:56 AM Date of : 1950 Age: 68 year(s) Height: 185.4 cm (73 in.) Weight: 99.34 kg (219 lb.) BSA: 2.24 m2 Gender: Male Examination: Echo Indication: Lower extremity swelling that is new Image Quality: Adequate Contrast: Requested by: Mandy Hargrove BP: 112 mmHg/61 mmHg Heart Rate: 90 bpm Rhythm: Indication: Lower extremity swelling that is new Procedure Staff Referring Physician: Air Conditioning Engineer: Eve Vee RDCS Reading Physician: Luis Antonio Arana MD Requesting Provider: Ordering Physician: Mandy Hargrove Indication: Lower extremity swelling that is new Measurements Chambers AV/MV Label Value Normal Value Label Value Normal Value EF lower range (%) 55 % AV Opening, MM 2.1 cm EF upper range (%) 70 % AV PGmax 10 mmHg IVSd, 2D 1.1 cm (0.6cm - 1.1cm) AV PGmean 5 mmHg LVDd, 2D 4.3 cm (4.2cm - 5.9cm) AV Vmax, Curve 1.57 m/s (1m/s - 1.7m/s) LVDs, 2D 2.3 cm (2.1cm - 4cm) JODY D (continuity eq. 3 cm2 LVEF, 2D 55 % (54% - 74%) VTI) LVOT PGmean 3 mmHg MV A Vmax 0.65 m/s LVOT Vmean 0.88 m/s MV DT 232 ms LVOTd 2.2 cm (1.9cm - 2.1cm) MV E' lateral 0.15 m/s LVPWd, 2D 1.1 cm (0.6cm - 1cm) MV E' mean 0.12 m/s RVDd, 2D 2.8 cm (1.9cm - 3.8cm) MV E' septal 0.1 m/s LA Volume, A4C 53 ml (18ml - 58ml) MV E Vmax 0.76 m/s LADs, 2D 3 cm (3cm - 4cm) MV E/A 1.17 RA Area 11.7 cm2 MV E/E' lateral 5 Additional Vessels MV E/E' mean 6.08 Label Value Normal Value MV E/E' septal 7.5 (0.45 - 1.25) AoAsc 3.5 cm MV PGmax 4 mmHg AoRoot, 2D 2.9 cm (1.4cm - 2.6cm) MV PGmean 1 mmHg Patient: CHUCK HOLBROOK Study Date: 05/13/2018 Page 1 of 3 09:56 AM IVC 1.7 cm (1.2cm - 2.3cm) MV PHT 0.07 s MV PHT 71 ms MV VTI 21.5 cm MVA D (continuity eq.) 3.9 cm2 MVA PHT 3.1 cm2 TV/PV Label Value Normal Value RA Pressure 5 mmHg RVSP 32 mmHg TR Pmax 27 mmHg TR Vmax 2.62 m/s PV PGmax 5 mmHg PV Vmax, Caliper 1.14 m/s (0.6m/s - 0.9m/s) Conclusions Normal LV size and systolic function. No regional wall motion abnormalities. Normal appearing valvular structures with trivial mitral regurgitation. Large pleural effusion noted with multiple echo densities contained within the effusion consistent with either metastatic disease or organized fibrinous material. Findings Left Ventricle: Left ventricle is normal in size. Normal global systolic left ventricular function. EF evaluated by visual assessment. EF range is estimated at 55 % - 70 %. Left ventricle wall thickness is normal. There is no regional wall motion abnormalities. Left ventricular diastolic function parameters are normal. There is no evidence of concentric hypertrophy. IVS: The septum is intact. Right Ventricle: Normal size right ventricle. Right ventricular wall thickness is normal. Right ventricular systolic function is normal. Pulmonary artery pressure normal. Left Atrium: The left atrium is normal in size. IAS: Normal appearing atrial septum. Right Atrium: The right atrium is normal in size. Mitral Valve: Mitral leaflets exhibit normal cuspal separation. Trivial mitral regurgitation. No mitral valve stenosis. Aortic Valve: Aortic leaflets exhibit normal cuspal separation. No aortic valve regurgitation. There is no aortic stenosis. Tricuspid Valve: Tricuspid valve leaflets are normal in appearance and function. No tricuspid regurgitation. No tricuspid valve stenosis. Tricuspid Valve Measurements Right Ventricular systolic pressure is measured at 32 mmHg. Pulmonic Valve: Pulmonic leaflets exhibit normal cuspal separation. No pulmonic valve regurgitation is evident. There is no pulmonic valve stenosis. Aorta: The aorta is normal. The aortic root size in 2D measures 2.9 cm. The ascending aorta measures 3.5 cm. Aorta Measurements AoRoot, 2D is 2.9 cm. Pulmonary Artery: Patient: CHUCK HOLBROOK Study Date: 05/13/2018 Page 2 of 3 09:56 AM The pulmonary artery morphology appears normal. IVC: The inferior vena cava is normal in size. The inferior vena cava is normal in size and course. Pericardium: No pericardial effusion. There is a pleural effusion present. Exam Details Procedure Ordered: Echo Procedure Components: Complete 2D imaging Procedure Status: Routine study Image Quality: Adequate Facility Location: Cardiac Echo 1 (No Signature Object) Patient: CHUCK HOLBROOK Study Date: 05/13/2018 Page 3 of 3 09:56 AM [id number]
[2018-05-14] MEDS ORDERED: FUROSEMIDE 20 MG/2 ML VIAL IVP ONE
--- NOTE | 2018-05-14 00:11 | HOSPPROG ---
Hospitalist Progress Note Assessment/Plan: Hospitalist night float note Notified by RN that patient with increasing respiratory distress and hypoxia. He was reported to have been on 4 liters/minute nasal cannula with increased needs for oxygen of 14 L by OxyMask to maintain O2 sats greater than 88%. Arrive to bedside to find patient resting quietly in bed with oxy mask in place. X-ray in progress. X-ray reviewed and compared to that completed just afternoon today showing atelectasis increased bilaterally as well as pulmonary edema and effusions. 20 mg of Lasix IV will be ordered. Incentive spirometry and flutter valve. Blood pressures are adequate at this time. Objective: Vital Signs Temp Pulse Resp BP Pulse Ox 36.9 C 101 H 20 112/63 88 L 05/13/18 23:08 05/13/18 23:08 05/13/18 17:49 05/13/18 23:08 05/13/18 23:08 Microbiology 05/13/18 13:00 Gram Stain - Final Pleural Fluid - Aspirate Laboratory Results 05/13/18 10:23 05/13/18 04:24 05/12/18 05/13/18 05/14/18 05:59 05:59 05:59 Intake Total 890 1290 250 Output Total 1425 1775 1300 Balance -535 -485 -1050 PT 15.6 SEC (12.0-15.0) H 05/13/18 10:23 INR 1.30 (0.83-1.16) H 05/13/18 10:23 ICD10 Worksheet Patient Problems: Problems Problem Status Onset Ascites Acute Dehydration Acute Gallstone pancreatitis Acute Metabolic acidosis Acute
[2018-05-14] MEDS: LEVOTHYROXINE 25 MCG TAB PO SCH (07:57)
[2018-05-14] MEDS: PANTOPRAZOLE SODIUM 40 MG TAB PO SCH (07:57)
[2018-05-14] MEDS: TAMSULOSIN HCL 0.4 MG CAP PO SCH (08:45)
[2018-05-14] MEDS: ENOXAPARIN 40 MG/0.4 ML SYR SC SCH (09:16)
[2018-05-14] MEDS ORDERED: FUROSEMIDE 100 MG/10 ML VIAL IVP ONE (09:19)
--- NOTE | 2018-05-14 09:26 | HOSPPROG ---
Hospitalist Progress Note Assessment/Plan: 68 yo M w severe gallstone pancreatitis volume overload: significant and complicated by hypoalbuminemia 1. lasix 80 X 1 and wlwctive trial of + pressure ventilation 2. if that unsuccessful, trial of albumin 3. if refractory to above, consider renal consult for cvvh although hold for now AHRF: due to above pleural effusion: bland fluid echo fincings noted- unlikely metastatic disease but d/w patient and needs follow up CT in 6 months cholelithiasis/choledocholithiasis: s/p ercp needs cholecystectomy, timing TBD appropriate to wait until intrabdominal inflammation decreased needs cholecystectomy but timing uncertain. see below pancreatitis: severe CT w e/o necrosis and early pseudocyst last CT 05/03 w beginnings of oranizing fluid collection probably due for repeat NAHID: improved w albumin and volume resuscitation polycythemia: likely 2/2 TARI vs volume depletion outpt sleep study proph: enox dispo: ICU 40 min crit care Subjective: transferred to ICU overnight for resp distress. cxr this AM wrecurrent pulm edema (interp by me). case d/w dr alvarez Objective: Vital Signs Temp Pulse Resp BP Pulse Ox 36.6 C 92 15 89/59 L 94 05/14/18 03:59 05/14/18 08:15 05/14/18 07:10 05/14/18 07:10 05/14/18 07:10 Microbiology 05/13/18 13:00 Gram Stain - Final Pleural Fluid - Aspirate Laboratory Results 05/13/18 10:23 05/14/18 05:30 05/13/18 05/14/18 05/15/18 05:59 05:59 05:59 Intake Total 1290 600 Output Total 1775 1600 Balance -485 -1000 PT 15.6 SEC (12.0-15.0) H 05/13/18 10:23 INR 1.30 (0.83-1.16) H 05/13/18 10:23 - Physical Exam Constitutional: no apparent distress, appears nourished Eyes: PERRL, anicteric sclera Ears, Nose, Mouth, Throat: moist mucous membranes, hearing normal Cardiovascular: regular rate and rhythym, no murmur, rub, or gallop, edema, No tachycardia Respiratory: no respiratory distress, other (tachypneic and orthopneic but no distress. difficult exam w decreased breath sounds and crackles b.l) Gastrointestinal: normoactive bowel sounds, distension, No guarding, No rebound Genitourinary: No salinas in urethra Skin: warm, normal color Musculoskeletal: full muscle strength Neurologic: AAOx3 ICD10 Worksheet Patient Problems: Problems Problem Status Onset Ascites Acute Dehydration Acute Gallstone pancreatitis Acute Metabolic acidosis Acute
[2018-05-14] MEDS ORDERED: acetaZOLAMIDE 500 MG in SYRINGE 0 ML IVP ONE (17:31)
--- NOTE | 2018-05-14 18:53 | GCON ---
[f rep st] CONSULTATION PULMONARY CRITICAL CARE CONSULTATION DATE OF CONSULTATION: 05/14/2018 REASON FOR CONSULTATION: Increasing hypoxemia in a patient with volume overload, status post severe gallstone pancreatitis. HISTORY: The patient is known to our service. He was admitted on 04/20, with gallstone pancreatitis . This was severe. He has developed a pseudocyst. He was treated in the intensive care unit previo usly and was on the medical-surgical floor, doing relatively well. He was transferred down to the in tensive care unit last night secondary to increasing oxygen requirements up to 15 L. He had a large volume thoracentesis yesterday of approximately 2 L. He was initially on 5 L after that procedure, b ut oxygen requirements continued to climb. He was given Lasix diuresis. Chest x-ray showed no evide nce of a pneumothorax. The left side, which had been evacuated, showed some reaccumulation of fluid from the post-tap film done approximately 6 hours previously. Chest x-ray this morning shows further accumulation. He was placed on BiPAP this morning in hopes that the positive-pressure might help in trapulmonary fluid. He has been tolerating this well. He has responded well to Lasix diuresis. Out put is greater than input. He remains on 15 L with saturations of 92%. He is relatively comfortable on the BiPAP, when he is on it. He is alternating between this and an OxyMask. Blood pressure is a pproximately 105/60, heart rate 90, with sinus rhythm on the monitor. He has had a prolonged course with this hospitalization. There is no evidence of active infection at this time; however, he does have a large pseudocyst, which, at some point, may need to be addressed with percutaneous or surgical drainage. His course has been complicated by volume overload and pulmo nary capillary leak. He has had bilateral pleural effusions. Thoracentesis on the left was performe d yesterday. Acute renal insufficiency was a problem earlier in hospitalization. This has resolved. Prior to admission, he had little in the way of medical problems. PAST MEDICAL HISTORY: Hyperlipidemia, hypothyroidism on replacement. SOCIAL HISTORY/FAMILY HISTORY/REVIEW OF SYSTEMS: All are unchanged. These were reviewed and are in previous extensive records. PHYSICAL EXAMINATION: GENERAL: Reveals a gentleman who appears relatively comfortable on BiPAP. RADHA SIGNS: Blood pressure is 105/60, heart rate 75, with sinus rhythm on the monitor, respiratory ra te is 18 on BiPAP. He feels his breathing is a little better with the BiPAP in place compared to oxy gen. Respiratory rate is 18. HEENT: Unremarkable for lymphadenopathy or thyromegaly. Jugular veno us pressure is difficult to assess with the BiPAP mask on. CHEST: Clear anteriorly. Breath sounds are diminished bilaterally, and there is dullness present at both bases with a few rales above. Ther e are no rhonchi. There is no pleural rub. HEART: Regular in rate and rhythm without obvious barriga p or significant murmur. P2 appears normal. ABDOMEN: Distended and not tender to light touch. Thurman el sounds are present. EXTREMITIES: Remarkable for 2+ edema/anasarca. NEUROLOGIC: Nonfocal. DATABASE: Chest x-rays are as described above. Abdominal ultrasound was last done on 05/03, and marshall wed ascites, bibasilar effusions, and atelectasis, pancreatic pseudocyst formation, and gallstones in the gallbladder. LABORATORY: White blood cell count is 17,900, hematocrit 36, platelets 459,000. PT 15.6, PTT 32 yes terday. Sodium is 134, potassium 3.8, CO2 38, BUN 26, with creatinine 1.0. Glucose 122, calcium 8.0 . Liver function studies are normal, albumin is 2.1. Pleural fluid from yesterday was benign. The pH was 7.6, white blood cells approximately 500 with red blood cells of 900. There were 21% neutroph ils and 70% lymphocytes. Protein was 3.6, LDH 562. Glucose was 125. Gram stain was negative, cultu res pending. ASSESSMENT: 1. Hypoxemia. The patient was transferred back to the intensive care unit with increasing hypoxemia . This followed a large volume thoracentesis. Re-expansion pulmonary edema is certainly possible, b ut is somewhat unusual, even with a 2 L pleural fluid evacuation. There is no evidence of congestive heart failure. Cardiac echo is within normal limits. He certainly is volume overloaded, and this i s contributing to his hypoxemia. He is being diuresed with Lasix. His prolonged hospitalization and illness and low albumin are contributing as well. In addition, with pancreatic inflammation, pleura l effusions are common, as well as pulmonary capillary leak and V/Q mismatch. Diuresis is appropriat e. BiPAP does appear to be effective, at least in making his work of breathing significantly easier. 2. Gallstone pancreatitis. Acute pancreatitis has resolved. He is left with a developing pseudocys t. Gallbladder remains in place with stones. This will need to be addressed surgically at some poin t. PLAN/RECOMMENDATIONS: The patient will be kept in the intensive care unit. Pulmonary status and sissy st x-ray will be followed. Lasix diuresis will be continued. Repeat CT scan of the chest and upper abdomen will be considered within the next few days, based on his progress. Further plans and recommendations will be made based on his course over the next 12-24 hours. /[id number]/MODL
[2018-05-15] MEDS: traZODone 50 MG TAB PO PRN (01:30)
[2018-05-15] MEDS: LEVOTHYROXINE 25 MCG TAB PO SCH (06:35)
--- NOTE | 2018-05-15 09:16 | ASMTCMCOM ---
CM Note CM Note Notes: Met with patient and , continue to anticipate a discharge home independently. Patient may need home O2 upon discharge, no other needs identified. CM available should something change. Plan: Independent Date Signed: 05/15/2018 09:15 AM Electronically Signed By:Cherrie Dubois RN
[2018-05-15] MEDS: PANTOPRAZOLE SODIUM 40 MG TAB PO SCH (09:31)
[2018-05-15] MEDS: TAMSULOSIN HCL 0.4 MG CAP PO SCH (09:31)
[2018-05-15] MEDS: ENOXAPARIN 40 MG/0.4 ML SYR SC SCH (09:32)
[2018-05-15] MEDS ORDERED: ALBUMIN 25% 200 ML IV ONE (10:50)
[2018-05-15] MEDS ORDERED: FUROSEMIDE 100 MG/10 ML VIAL IVP ONE ×2 (10:51→16:03)
--- NOTE | 2018-05-15 10:57 | HOSPPROG ---
Hospitalist Progress Note Assessment/Plan: 68 yo M w severe gallstone pancreatitis volume overload: significant and complicated by hypoalbuminemia 1. give lasix 80 IV x 1 now 2. give albumin 3. ct abd today to eval pseudocyst paracentesis if sig ascites- there almost certainly is AHRF: due to above pleural effusion: bland fluid echo findings noted- unlikely metastatic disease but d/w patient and needs follow up CT in 6 months cholelithiasis/choledocholithiasis: s/p ercp needs cholecystectomy, timing TBD appropriate to wait until intrabdominal inflammation decreased needs cholecystectomy but timing uncertain. see below pancreatitis: severe CT w e/o necrosis and early pseudocyst last CT 05/03 w beginnings of oranizing fluid collection repeat today NAHID: improved w albumin and volume resuscitation urinary retention: follow at this point, he is not uncomfortable polycythemia: likely 2/2 TARI vs volume depletion outpt sleep study proph: enox dispo: ICU 40 min crit care Subjective: case discussed w dr alvarez. abdominal bloating. high 02 requirements Objective: Vital Signs Temp Pulse Resp BP Pulse Ox 36.3 C 104 H 20 106/71 95 05/15/18 08:00 05/15/18 08:00 05/15/18 08:00 05/15/18 08:00 05/15/18 08:00 Microbiology 05/13/18 13:00 Gram Stain - Final Pleural Fluid - Aspirate Laboratory Results 05/13/18 10:23 05/15/18 05:11 05/14/18 05/15/18 05/16/18 05:59 05:59 05:59 Intake Total 600 1350 Output Total 1600 1325 200 Balance -1000 25 -200 PT 15.6 SEC (12.0-15.0) H 05/13/18 10:23 INR 1.30 (0.83-1.16) H 05/13/18 10:23 - Physical Exam Constitutional: no apparent distress, other (anasarca) Eyes: PERRL, anicteric sclera Ears, Nose, Mouth, Throat: moist mucous membranes, hearing normal Cardiovascular: no murmur, rub, or gallop, tachycardia Respiratory: other (decreased breath sounds at bases. crackles throughout) Gastrointestinal: distension, other (hypoactive bowel sounds), No guarding, No rebound Genitourinary: No salinas in urethra Skin: warm, normal color Musculoskeletal: full muscle strength, no muscle tenderness Neurologic: AAOx3 Psychiatric: interacting appropriately ICD10 Worksheet Patient Problems: Problems Problem Status Onset Ascites Acute Dehydration Acute Gallstone pancreatitis Acute Metabolic acidosis Acute
[2018-05-15] MEDS ORDERED: IOPAMIDOL (ISOVUE-300) 100 ML BTL ONE (13:39)
--- NOTE | 2018-05-15 15:34 | PDINTPN ---
Slot Router Progress Note Assessment/Plan: Assessment: Volume overload/anasarca. Low albumin, normal cardiac status in the setting of recent severe gallstone pancreatitis. On intermittent diuretics and albumin. Renal function normal. Severe gallstone pancreatitis. Acute inflammatory phase is resolved. Had ERCP done with removal of blocking stones in common bile duct early on. Severe pancreatic inflammation evolved. Pseudocyst forming at this point. This has been associated with ascites and bilateral pleural effusions, hypoxemia, etc. Will need cholecystectomy at some point. Repeat CT scan of the abdomen done today. Hypoxemia: Requiring relatively high-flow oxygen, between 5 and 15 L with fluctuations. Fluid status, effusions, compressive atelectasis and hypoventilatory changes likely the reasons for this. No history of underlying lung or heart disease. Bilateral pleural effusions. Secondary to problems noted above. Status post large volume thoracentesis several days ago. Some fluid has reaccumulated. Prolonged hospitalization. Here for almost 1 month at this point. Prophylaxis: On enoxaparin and pantoprazole. Plan: Continue care in the intensive care unit. Continue Lasix diuresis. Continue albumin. Consider Lasix drip. Continue acetazolamide for contraction alkalosis. Follow Is/Os, daily weights. Follow laboratory. Await results of the CT scan of the abdomen done today. If appropriate consider paracentesis and /or repeat thoracentesis. Mobilize as tolerated. Continue IS. 35 min of critical care time spent directly with the patient. Discussed with hospitalist, nursing, the patient's , and the ICU multi disciplinary team. Subjective: Feels about the same. Remains short of breath. Not a lot of pain. Somewhat uncomfortable. Discouraged. Objective: Vital Signs Temp Pulse Resp BP Pulse Ox 36.6 C 91 17 94/60 L 95 05/15/18 11:50 05/15/18 11:50 05/15/18 11:50 05/15/18 11:50 05/15/18 11:50 Microbiology 05/13/18 13:00 Gram Stain - Final Pleural Fluid - Aspirate Laboratory Results 05/13/18 10:23 05/15/18 05:11 05/14/18 05/15/18 05/16/18 05:59 05:59 05:59 Intake Total 600 1350 Output Total 1600 1325 515 Balance -1000 25 -515 PT 15.6 SEC (12.0-15.0) H 05/13/18 10:23 INR 1.30 (0.83-1.16) H 05/13/18 10:23 CXR: Improved bilaterally, although effusions and infiltrates/atelectasis at the bases persist. CT abdomen pending. Physical Exam - Physical Exam General Appearance: alert, no apparent distress, other (Up in chair. Oxygen mask in place.) EENT: PERRL/EOMI, other ([address] by mask.) Neck: normal inspection (No JVD) Respiratory: lungs clear (Anteriorly), decreased breath sounds (At the bases, dullness present bilaterally. Few rales above.), No rhonchi, No wheezing, No pleural rub Cardiac/Chest: regular rate, rhythm, No gallop Abdomen: normal bowel sounds (Decreased, present), distended, No non-tender ( Mildly tender), No soft Skin: normal color, warm/dry Extremities: pedal edema (2++), swelling (Anasarca) Neuro/Psych: no motor/sensory deficits, No cognition abnormalities ICD10 Worksheet Patient Problems: Problems Problem Status Onset Gallstone pancreatitis Acute Dehydration Acute Metabolic acidosis Acute Ascites Acute
[2018-05-15] MEDS ORDERED: FUROSEMIDE 100 MG in D5W 100 ML IV SCH (16:15)
[2018-05-15] MEDS: FUROSEMIDE 100 MG in D5W 100 ML IV SCH (17:27)
[2018-05-15] MEDS: ALBUMIN 25% 100 ML IV SCH (17:57)
[2018-05-16] MEDS: ALBUMIN 25% 100 ML IV SCH ×2 (01:35→06:53)
[2018-05-16] MEDS: LEVOTHYROXINE 25 MCG TAB PO SCH (06:53)
[2018-05-16] MEDS ORDERED: PROTOCOL POTASSIUM 1 DOSE MISC PRN ×2 (08:27→15:21)
[2018-05-16] MEDS ORDERED: POTASSIUM Cl (KCl) 100 ML IV SCH (09:00)
--- NOTE | 2018-05-16 09:13 | HOSPPROG ---
Hospitalist Progress Note Assessment/Plan: 68 yo M w severe gallstone pancreatitis volume overload: significant and complicated by hypoalbuminemia 1. lasix gtt 2. albumin 2.7- OK to stop albumin for now 3. diamox X 1 4. start po potassium AHRF: due to above pleural effusion: bland fluid echo findings noted- unlikely metastatic disease but d/w patient and needs follow up CT in 6 months cholelithiasis/choledocholithiasis: s/p ercp needs cholecystectomy, timing TBD appropriate to wait until intrabdominal inflammation decreased needs cholecystectomy but timing uncertain. see below pancreatitis: severe CT w e/o necrosis and early pseudocyst last CT 05/03 w beginnings of oranizing fluid collection repeat today NAHID: improved w albumin and volume resuscitation urinary retention: follow at this point, he is not uncomfortable polycythemia: likely 2/2 TARI vs volume depletion outpt sleep study proph: enox dispo: ICU 40 min crit care Subjective: case d/w dr alvarez. 1445 cc neg but weight unchanged. albumin 2.7 Objective: Vital Signs Temp Pulse Resp BP Pulse Ox 36.8 C 90 19 101/52 L 94 05/16/18 08:06 05/16/18 08:06 05/16/18 08:06 05/16/18 08:06 05/16/18 08:06 Microbiology 05/13/18 13:00 Gram Stain - Final Pleural Fluid - Aspirate Laboratory Results 05/13/18 10:23 05/16/18 05:37 05/15/18 05/16/18 05/17/18 05:59 05:59 06:59 Intake Total 1350 720 Output Total 1325 2165 Balance 25 -1445 PT 15.6 SEC (12.0-15.0) H 05/13/18 10:23 INR 1.30 (0.83-1.16) H 05/13/18 10:23 - Physical Exam Constitutional: no apparent distress, not in pain Eyes: PERRL, anicteric sclera Ears, Nose, Mouth, Throat: moist mucous membranes Cardiovascular: regular rate and rhythym, no murmur, rub, or gallop Respiratory: no respiratory distress, no rales or rhonchi, other (lung exam improved) Gastrointestinal: normoactive bowel sounds, soft, non-tender abdomen Genitourinary: salinas in urethra Skin: warm, normal color Musculoskeletal: full muscle strength, no muscle tenderness Neurologic: AAOx3 ICD10 Worksheet Patient Problems: Problems Problem Status Onset Ascites Acute Dehydration Acute Gallstone pancreatitis Acute Metabolic acidosis Acute
[2018-05-16] MEDS ORDERED: ALTEPLASE 2 MG VIAL IVP PRN (10:34)
[2018-05-16] MEDS: ENOXAPARIN 40 MG/0.4 ML SYR SC SCH (10:37)
[2018-05-16] MEDS: POTASSIUM CL 20 MEQ/15 ML UDCUP PO SCH ×2 (10:37→23:11)
[2018-05-16] MEDS: PANTOPRAZOLE SODIUM 40 MG TAB PO SCH (10:37)
[2018-05-16] MEDS: TAMSULOSIN HCL 0.4 MG CAP PO SCH (10:38)
--- NOTE | 2018-05-16 13:28 | PDINTPN ---
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 Low albumin, normal cardiac status in the setting of recent severe gallstone pancreatitis. Currently on Lasix drip and albumin. Renal function normal. Severe gallstone pancreatitis. Acute inflammatory phase is resolved. Had ERCP done with removal of blocking stones in common bile duct early on. Severe pancreatic inflammation evolved. Pseudocyst forming at this point. This has been associated with ascites and bilateral pleural effusions, hypoxemia, etc. Will need cholecystectomy at some point. Repeat CT scan of the abdomen consistent with evolving changes post pancreatitis. Some ascites present but not large volume.. Hypoxemia: Requiring relatively high-flow oxygen, between 5 and 15 L with fluctuations. Fluid status, effusions, compressive atelectasis and hypoventilatory changes likely the reasons for this. No history of underlying lung or heart disease. Bilateral pleural effusions. Secondary to problems noted above. Status post large volume thoracentesis 05/13. Some fluid has reaccumulated. Prolonged hospitalization. Here for almost 1 month at this point. Prophylaxis: On enoxaparin and pantoprazole. Plan: Continue care in the intensive care unit. Continue Lasix diuresis with continuous drip. Continue albumin. P.r.n. acetazolamide for contraction alkalosis. Follow Is/Os, daily weights. Follow laboratory, volume status, weights. Mobilize as tolerated. Continue IS. 35 min of critical care time spent directly with the patient. Discussed with the patient and his hospitalist, nursing, and the ICU multi disciplinary team. Subjective: In better spirits today. His breathing may be a little bit better. Generally uncomfortable but no specific pain. Abdomen okay Objective: Vital Signs Temp Pulse Resp BP Pulse Ox 36.9 C 84 24 H 122/56 H 94 05/16/18 11:33 05/16/18 11:33 05/16/18 11:33 05/16/18 11:33 05/16/18 11:33 Microbiology 05/13/18 13:00 Gram Stain - Final Pleural Fluid - Aspirate Laboratory Results 05/13/18 10:23 05/16/18 05:37 05/15/18 05/16/18 05/17/18 05:59 05:59 06:59 Intake Total 1350 720 350 Output Total 1325 2165 Balance 25 -1445 350 PT 15.6 SEC (12.0-15.0) H 05/13/18 10:23 INR 1.30 (0.83-1.16) H 05/13/18 10:23 Laboratory Tests 05/15/18 05/16/18 05/16/18 05:11 05:37 05:37 Calcium 8.1 L 8.1 L Phosphorus 4.0 Magnesium 2.0 Total Bilirubin 0.6 0.7 AST 40 26 ALT 43 32 Albumin 2.1 L 2.7 L Physical Exam - Physical Exam General Appearance: alert, no apparent distress EENT: PERRL/EOMI, other (OxyMask in place at 12-13 L. ) Neck: normal inspection Respiratory: lungs clear (Anteriorly), decreased breath sounds (At bases), other (Dullness present bilaterally), No rhonchi Cardiac/Chest: regular rate, rhythm Abdomen: non-tender (To light palpation), distended, No normal bowel sounds ( Bowel sounds present, decreased), No soft (Relatively firm) Male Genitalia: other (Arciniega catheter in place, improved urine output with Lasix. Output greater than input last) Skin: normal color, warm/dry Extremities: pedal edema (2 to 3+ edema anasarca, no change) Neuro/Psych: no motor/sensory deficits, No cognition abnormalities ICD10 Worksheet Patient Problems: Problems Problem Status Onset Gallstone pancreatitis Acute Dehydration Acute Metabolic acidosis Acute Ascites Acute
[2018-05-16] MEDS: FUROSEMIDE 100 MG in D5W 100 ML IV SCH (13:44)
[2018-05-17] MEDS: traZODone 50 MG TAB PO PRN (01:00)
[2018-05-17] MEDS: FUROSEMIDE 100 MG in D5W 100 ML IV SCH ×3 (01:01→22:46)
[2018-05-17] MEDS: POTASSIUM Cl (KCl) 50 ML IV SCH ×2 (03:36→04:34)
[2018-05-17] MEDS: LEVOTHYROXINE 25 MCG TAB PO SCH (06:14)
[2018-05-17] MEDS ORDERED: POTASSIUM CL 10 MEQ TAB PO ONE ×2 (08:21→13:54)
[2018-05-17] MEDS ORDERED: POTASSIUM CL 10 MEQ TAB ONE (09:17)
[2018-05-17] MEDS: ENOXAPARIN 40 MG/0.4 ML SYR SC SCH (09:17)
[2018-05-17] MEDS: POTASSIUM CL 20 MEQ/15 ML UDCUP PO SCH ×2 (09:17→21:40)
[2018-05-17] MEDS: TAMSULOSIN HCL 0.4 MG CAP PO SCH (09:18)
[2018-05-17] MEDS: PANTOPRAZOLE SODIUM 40 MG TAB PO SCH (09:18)
[2018-05-17] MEDS: acetaZOLAMIDE 250 MG TAB PO SCH ×2 (10:38→21:40)
--- NOTE | 2018-05-17 13:30 | HOSPPROG ---
Hospitalist Progress Note Assessment/Plan: 68 yo M w severe gallstone pancreatitis volume overload: significant and complicated by hypoalbuminemia 1. lasix gtt - continue at current rate 2. albumin 2.7- Albumin held since last night, likely ok to hold Albumin today 3. will get more diamox today, Bicarb 41 4. cont po potassium AHRF: due to above CXR repeated. Still with volume overload, appears improving. personally reviewed today pleural effusion: bland fluid echo findings noted- unlikely metastatic disease but d/w patient and needs follow up CT in 6 months cholelithiasis/choledocholithiasis: s/p ercp needs cholecystectomy, timing TBD appropriate to wait until intrabdominal inflammation decreased needs cholecystectomy but timing uncertain. see below pancreatitis: severe CT w e/o necrosis and early pseudocyst last CT 2/24 w beginnings of oranizing fluid collection repeat today NAHID: improved w albumin and volume resuscitation urinary retention: follow at this point, he is not uncomfortable polycythemia: likely 2/2 TARI vs volume depletion outpt sleep study proph: enox Nutrition: low oral intake, caloric intake reported. The pt and brought up the possibility of tube feeds. This will need to be discussed further with team during rounds tomorrow. Pt and are in agreement. dispo: ICU 35 min crit care Subjective: still on 13 Liters O2. O2 needs fluctuate. Still with significant edema. Objective: Vital Signs Temp Pulse Resp BP Pulse Ox 36.5 C 86 18 108/64 97 05/17/18 12:00 05/17/18 12:00 05/17/18 12:00 05/17/18 12:00 05/17/18 12:00 Microbiology 05/13/18 13:00 Gram Stain - Final Pleural Fluid - Aspirate Laboratory Results 05/13/18 10:23 05/17/18 12:05 05/16/18 05/17/18 05/18/18 04:59 05:59 05:59 Intake Total Output Total Balance PT 15.6 SEC (12.0-15.0) H 05/13/18 10:23 INR 1.30 (0.83-1.16) H 05/13/18 10:23 - Physical Exam Constitutional: no apparent distress, chronically ill appearing Eyes: PERRL, EOMI Ears, Nose, Mouth, Throat: moist mucous membranes Cardiovascular: regular rate and rhythym, edema Respiratory: reduced air movement Gastrointestinal: normoactive bowel sounds Skin: warm Musculoskeletal: generalized weakness Neurologic: AAOx3 Psychiatric: interacting appropriately, not anxious, not encephalopathic Lymph, Heme, Immunologic: No petechiae ICD10 Worksheet Patient Problems: Problems Problem Status Onset Ascites Acute Dehydration Acute Gallstone pancreatitis Acute Metabolic acidosis Acute
[2018-05-17] MEDS ORDERED: ALBUMIN 25% 50 ML IV ONE (15:34)
--- NOTE | 2018-05-17 16:05 | PDINTPN ---
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 Low albumin, normal cardiac status in the setting of recent severe gallstone pancreatitis. Currently on Lasix drip and albumin. Renal function normal. Severe gallstone pancreatitis. Acute inflammatory phase is resolved. Had ERCP done with removal of blocking stones in common bile duct early on. Severe pancreatic inflammation evolved. Pseudocyst forming at this point. This has been associated with ascites and bilateral pleural effusions, hypoxemia, etc. Will need cholecystectomy at some point. Repeat CT scan of the abdomen consistent with evolving changes post pancreatitis. Some ascites present but not large volume.. Hypoxemia: Requiring relatively high-flow oxygen, between 5 and 15 L with fluctuations. Fluid status, effusions, compressive atelectasis and hypoventilatory changes likely the reasons for this. No history of underlying lung or heart disease. Bilateral pleural effusions. Secondary to problems noted above. Status post large volume thoracentesis 05/13. Some fluid has reaccumulated. Prolonged hospitalization. Here for almost 1 month at this point. Prophylaxis: On enoxaparin and pantoprazole. Plan: Continue care in the intensive care unit. Continue Lasix diuresis with continuous drip. Continue albumin. P.r.n. acetazolamide for contraction alkalosis. Follow Is/Os, daily weights. Follow laboratory, volume status, weights. Mobilize as tolerated. Continue IS. 35 min of critical care time spent directly with the patient. Discussed with the patient and his hospitalist, nursing, and the ICU multi disciplinary team. Objective: Vital Signs Temp Pulse Resp BP Pulse Ox 36.5 C 86 18 108/64 97 05/17/18 12:00 05/17/18 12:00 05/17/18 12:00 05/17/18 12:00 05/17/18 12:00 Microbiology 05/13/18 13:00 Gram Stain - Final Pleural Fluid - Aspirate Laboratory Results 05/13/18 10:23 05/17/18 12:05 05/16/18 05/17/18 05/18/18 04:59 05:59 05:59 Intake Total Output Total Balance PT 15.6 SEC (12.0-15.0) H 05/13/18 10:23 INR 1.30 (0.83-1.16) H 05/13/18 10:23 Laboratory Tests 05/17/18 06:10 Sodium 135 Potassium 3.4 L Chloride 89 L Carbon Dioxide 41 H* BUN 25 H Creatinine 1.0 Glucose 127 H Calcium 8.2 L Albumin 2.5 L ICD10 Worksheet Patient Problems: Problems Problem Status Onset Gallstone pancreatitis Acute Dehydration Acute Metabolic acidosis Acute Ascites Acute
--- NOTE | 2018-05-17 17:17 | PDINTPN ---
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 Low albumin, normal cardiac status in the setting of recent severe gallstone pancreatitis. Currently on Lasix drip and intermittent albumin. Renal function normal. Diuresing, weight dropping, chest x-ray improving. Severe gallstone pancreatitis. Acute inflammatory phase is resolved. Had ERCP done with removal of blocking stones in common bile duct early on. Severe pancreatic inflammation evolved. Pseudocyst forming at this point. This has been associated with ascites and bilateral pleural effusions, hypoxemia, etc. Will need cholecystectomy at some point. Repeat CT scan of the abdomen consistent with evolving changes post pancreatitis. Some ascites present but not large volume. Paracenteses is not indicated. Hypoxemia: Requiring relatively high-flow oxygen, between 13 L currently. Fluid status, effusions, compressive atelectasis and hypoventilatory changes likely the reasons for this. No history of underlying lung or heart disease. No evidence of pneumonia. Bilateral pleural effusions. Secondary to problems noted above. Status post large volume thoracentesis 05/13. Some fluid has reaccumulated. Prolonged hospitalization. Here for almost 1 month at this point. Prophylaxis: On enoxaparin and pantoprazole. Plan: Continue care in the intensive care unit. Continue Lasix diuresis with continuous drip. Continue albumin intermittently. Add twice daily acetazolamide for contraction alkalosis. Follow Is/Os, daily weights, laboratory. Mobilize as tolerated. Continue IS. 30 min of critical care time spent directly with the patient. Discussed with the patient and his , hospitalist, nursing, and the ICU multi disciplinary team. Subjective: Doing okay. About the same. Feels breathing is unchanged. Remains on oxygen. No acute pain. Not eating much, not hungry. Objective: Vital Signs Temp Pulse Resp BP Pulse Ox 36.8 C 102 H 23 H 128/69 H 95 05/17/18 15:56 05/17/18 15:56 05/17/18 15:56 05/17/18 15:56 05/17/18 15:56 Microbiology 05/13/18 13:00 Gram Stain - Final Pleural Fluid - Aspirate Laboratory Results 05/13/18 10:23 05/17/18 12:05 05/16/18 05/17/18 05/18/18 04:59 05:59 05:59 Intake Total Output Total 1100 Balance -1100 PT 15.6 SEC (12.0-15.0) H 05/13/18 10:23 INR 1.30 (0.83-1.16) H 05/13/18 10:23 Laboratory Tests 05/17/18 06:10 Sodium 135 Potassium 3.4 L Chloride 89 L Carbon Dioxide 41 H* BUN 25 H Creatinine 1.0 Glucose 127 H Albumin 2.5 L CXR - improving bilateral pleural effusions Physical Exam - Physical Exam General Appearance: alert, no apparent distress EENT: PERRL/EOMI, other (On OxyMask at 12 L. ) Neck: normal inspection Respiratory: lungs clear (Anteriorly), decreased breath sounds (At bases. Dullness present bilaterally.), No rhonchi, No wheezing Cardiac/Chest: regular rate, rhythm Abdomen: non-tender, distended, No normal bowel sounds (Present, decreased), No soft Male Genitalia: other (Arciniega catheter in place. Good urine output Lasix diuresis. Output greater than input. Weight decreasing) Skin: warm/dry, pallor Extremities: pedal edema Neuro/Psych: no motor/sensory deficits, No cognition abnormalities ICD10 Worksheet Patient Problems: Problems Problem Status Onset Gallstone pancreatitis Acute Dehydration Acute Metabolic acidosis Acute Ascites Acute
[2018-05-17] MEDS ORDERED: POTASSIUM Cl (KCl) 100 ML IV SCH (21:00)
[2018-05-17] MEDS ORDERED: POTASSIUM CL 20 MEQ/15 ML UDCUP PO ONE (21:15)
[2018-05-18] MEDS ORDERED: POTASSIUM Cl (KCl) 50 ML IV ONE (01:06)
[2018-05-18] MEDS ORDERED: POTASSIUM Cl (KCl) 100 ML IV ONE (01:30)
[2018-05-18] MEDS: LEVOTHYROXINE 25 MCG TAB PO SCH (05:25)
[2018-05-18] MEDS: POTASSIUM CL 20 MEQ/15 ML UDCUP PO SCH (08:42)
[2018-05-18] MEDS: ENOXAPARIN 40 MG/0.4 ML SYR SC SCH (08:43)
[2018-05-18] MEDS: acetaZOLAMIDE 250 MG TAB PO SCH ×2 (08:43→20:48)
[2018-05-18] MEDS: FUROSEMIDE 100 MG in D5W 100 ML IV SCH (08:43)
[2018-05-18] MEDS: TAMSULOSIN HCL 0.4 MG CAP PO SCH (08:43)
[2018-05-18] MEDS: PANTOPRAZOLE SODIUM 40 MG TAB PO SCH (08:43)
[2018-05-18] MEDS: POTASSIUM CL 20 MEQ TAB PO SCH ×2 (09:29→20:48)
[2018-05-18] MEDS ORDERED: POTASSIUM CL 10 MEQ TAB PO ONE (10:14)
[2018-05-18] MEDS: POTASSIUM Cl (KCl) 100 ML IV SCH ×2 (12:54→15:43)
--- NOTE | 2018-05-18 13:38 | PDINTPN ---
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 Low albumin, normal cardiac status in the setting of recent severe gallstone pancreatitis. Currently on Lasix drip and intermittent albumin. Renal function normal. Diuresing, weight dropping, chest x-ray improving. * Severe gallstone pancreatitis. Acute inflammatory phase is resolved. Had ERCP done with removal of blocking stones in common bile duct early on. Severe pancreatic inflammation evolved. Pseudocyst forming at this point. This has been associated with ascites and bilateral pleural effusions, hypoxemia, etc. Will need cholecystectomy at some point. Repeat CT scan of the abdomen consistent with evolving changes post pancreatitis. Some ascites present but not large volume. Paracenteses is not indicated. * Hypoxemia: Requiring relatively high-flow oxygen, improved. Fluid status, effusions, compressive atelectasis and hypoventilatory changes likely the reasons for this. No history of underlying lung or heart disease. No evidence of pneumonia. * New onset atrial fibrillation-rate reasonably well controlled -start amiodarone * Bilateral pleural effusions. Secondary to problems noted above. Status post large volume thoracentesis 05/13. Some fluid has reaccumulated. * Prolonged hospitalization. Here for almost 1 month at this point. * Prophylaxis: On enoxaparin and pantoprazole. * PT/OT Subjective: Sitting up in chair. Resting comfortably. No current complaints Objective: Vital Signs Temp Pulse Resp BP Pulse Ox 36.8 C 97 25 H 102/71 94 05/18/18 04:00 05/18/18 12:11 05/18/18 12:11 05/18/18 12:11 05/18/18 12:11 Microbiology 05/13/18 13:00 Gram Stain - Final Pleural Fluid - Aspirate Laboratory Results 05/18/18 05:15 05/18/18 11:58 05/17/18 05/18/18 05/19/18 05:59 05:59 05:59 Intake Total 1724 Output Total 2500 1000 Balance -776 -1000 PT 15.6 SEC (12.0-15.0) H 05/13/18 10:23 INR 1.30 (0.83-1.16) H 05/13/18 10:23 - Time Spent With Patient Time Spent With Patient: 35 min of time spent with patient, over 1/2 involved with coordination of care or counseling. Case discussed with nursing Physical Exam - Physical Exam General Appearance: alert, no apparent distress EENT: PERRL/EOMI Neck: non-tender, full range of motion Respiratory: crackles (Few basilar), No respiratory distress, No wheezing Cardiac/Chest: systolic murmur, irregularly irregular Peripheral Pulses: 2+: carotid (R), carotid (L), femoral (R), femoral (L), dorsalis-pedis (R), dorsalis-pedis (L) Abdomen: normal bowel sounds, non-tender, soft Male Genitalia: deferred Rectal: deferred Skin: normal color, warm/dry Extremities: normal range of motion, non-tender, normal inspection, normal capillary refill Neuro/Psych: alert, oriented x 3 ICD10 Worksheet Patient Problems: Problems Problem Status Onset Ascites Acute Dehydration Acute Gallstone pancreatitis Acute Metabolic acidosis Acute
[2018-05-18] MEDS ORDERED: AMIODARONE A.FIB-LOAD DOSE(ORDER 1/3) PREMIX IV ONE (14:00)
[2018-05-18] MEDS ORDERED: AMIODARONE A.FIB-6HR INFSN (ORDER 2/3) PREMIX IV ONE (14:00)
--- NOTE | 2018-05-18 14:23 | HOSPPROG ---
Hospitalist Progress Note Assessment/Plan: 68 yo M w severe gallstone pancreatitis, now anasarcic and hypoxic volume overload: significant and complicated by hypoalbuminemia -cont lasix gtt -cont diamox for contraction alkalosis -daily weights, fluid restriction -weight today 96.6 Kg AHRF: due to above, oxygen improved today down from 5-6 liters to 2-3 liters -CXR repeated. Still with volume overload, appears improving. personally reviewed today pleural effusion: bland fluid -echo findings noted- unlikely metastatic disease but d/w patient and needs follow up CT in 6 months cholelithiasis/choledocholithiasis: s/p ercp -needs cholecystectomy, timing TBD -appropriate to wait until intrabdominal inflammation decreased pancreatitis: severe, resolved -CT w e/o necrosis and early pseudocyst -last CT 05/03 w beginnings of oranizing fluid collection -repeat Repeat CT yesterday with \ Afib- new today. CHADS VASC is 1. Started on amiodarone today. Will discussed anticoagulation. NAHID: improved w albumin and volume resuscitation urinary retention: follow at this point, he is not uncomfortable polycythemia: likely 2/2 TARI vs volume depletion outpt sleep study proph: enox Nutrition:Low albumin. Will discuss possibility of tube feeds with patient. dispo: remain ICU Subjective: no complaints. breathing somewhat better today. Objective: Vital Signs Temp Pulse Resp BP Pulse Ox 36.8 C 97 25 H 102/71 94 05/18/18 04:00 05/18/18 12:11 05/18/18 12:11 05/18/18 12:11 05/18/18 12:11 Microbiology 05/13/18 13:00 Gram Stain - Final Pleural Fluid - Aspirate Laboratory Results 05/18/18 05:15 05/18/18 11:58 05/17/18 05/18/18 05/19/18 05:59 05:59 05:59 Intake Total 1724 Output Total 2500 1000 Balance -776 -1000 PT 15.6 SEC (12.0-15.0) H 05/13/18 10:23 INR 1.30 (0.83-1.16) H 05/13/18 10:23 - Physical Exam Constitutional: no apparent distress, appears nourished, not in pain Eyes: PERRL, anicteric sclera, EOMI Ears, Nose, Mouth, Throat: moist mucous membranes, hearing normal, ears appear normal, no oral mucosal ulcers Cardiovascular: tachycardia Respiratory: reduced air movement Gastrointestinal: soft, non-tender abdomen, distension Genitourinary: no bladder fullness, no bladder tenderness, no renal bruits Skin: no rashes or abrasions, no fluctuance, no induration Musculoskeletal: generalized weakness Neurologic: AAOx3 Psychiatric: interacting appropriately Lymph, Heme, Immunologic: no cervical LAD, no supraclavicular LAD ICD10 Worksheet Patient Problems: Problems Problem Status Onset Ascites Acute Dehydration Acute Gallstone pancreatitis Acute Metabolic acidosis Acute
--- NOTE | 2018-05-18 15:40 | ASMTCMCOM ---
CM Note CM Note Notes: Pt care discussed in rounds with pt's . Pt continues to have medical needs. Plan continues for pt to be discharged independently with home O2. No other CM needs identified. CM available if needs arise. Plan: Independent Date Signed: 05/18/2018 03:39 PM Electronically Signed By:INES Villa
[2018-05-18] MEDS ORDERED: AMIODARONE A.FIB-18HR INFSN (ORDER 3/3) IV ONE (20:00)
[2018-05-19] MEDS: FUROSEMIDE 100 MG in D5W 100 ML IV SCH ×2 (00:32→12:03)
[2018-05-19] MEDS ORDERED: POTASSIUM CL 10 MEQ TAB PO ONE ×7 (00:38→23:53)
[2018-05-19] MEDS: LEVOTHYROXINE 25 MCG TAB PO SCH (05:08)
--- NOTE | 2018-05-19 09:07 | PDINTPN ---
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 Low albumin, normal cardiac status in the setting of recent severe gallstone pancreatitis. Currently on Lasix drip and intermittent albumin. Renal function normal. Diuresing, weight dropping, chest x-ray improving. * Severe gallstone pancreatitis. Acute inflammatory phase is resolved. Had ERCP done with removal of blocking stones in common bile duct early on. Severe pancreatic inflammation evolved. Pseudocyst forming at this point. This has been associated with ascites and bilateral pleural effusions, hypoxemia, etc. Will need cholecystectomy at some point. Repeat CT scan of the abdomen consistent with evolving changes post pancreatitis. Some ascites present but not large volume. Paracenteses is not indicated. * Hypoxemia: Down to 4 L nasal cannula -continue to wean FiO2 as tolerated * New onset atrial fibrillation-resolved -discontinue amiodarone * Bilateral pleural effusions. Secondary to problems noted above. Status post large volume thoracentesis 05/13. Some fluid has reaccumulated. * Prolonged hospitalization. Here for almost 1 month at this point. * Prophylaxis: On enoxaparin and pantoprazole. * PT/OT * Out of bed -will try to get patient out to the deck * Disposition-likely okay for floor 05/19/18 09:06 Subjective: Sitting up in chair. Resting comfortably. No current complaints. Objective: Vital Signs Temp Pulse Resp BP Pulse Ox 36.8 C 84 24 H 109/65 94 05/19/18 07:47 05/19/18 07:47 05/19/18 07:47 05/19/18 07:47 05/19/18 07:47 Microbiology 05/13/18 13:00 Gram Stain - Final Pleural Fluid - Aspirate Laboratory Results 05/19/18 05:25 05/19/18 05:25 05/18/18 05/19/18 05/20/18 05:59 05:59 05:59 Intake Total 1724 1136 Output Total 6173 2650 Balance -776 -1514 PT 15.6 SEC (12.0-15.0) H 05/13/18 10:23 INR 1.30 (0.83-1.16) H 05/13/18 10:23 - Time Spent With Patient Time Spent With Patient: 35 min of time spent with patient, over 1/2 involved with coordination of care or counseling. Case discussed with nursing Physical Exam - Physical Exam General Appearance: alert, no apparent distress EENT: PERRL/EOMI Neck: non-tender, supple Respiratory: chest non-tender, lungs clear, normal breath sounds Cardiac/Chest: normal peripheral pulses, regular rate, rhythm, systolic murmur Abdomen: soft, No normal bowel sounds (Diminished), No non-tender Male Genitalia: deferred Rectal: deferred Skin: normal color, warm/dry Extremities: normal range of motion, non-tender, normal inspection, normal capillary refill Neuro/Psych: alert, normal mood/affect, oriented x 3 ICD10 Worksheet Patient Problems: Problems Problem Status Onset Ascites Acute Dehydration Acute Gallstone pancreatitis Acute Metabolic acidosis Acute
[2018-05-19] MEDS: ENOXAPARIN 40 MG/0.4 ML SYR SC SCH (09:59)
[2018-05-19] MEDS: POTASSIUM CL 20 MEQ TAB PO SCH ×2 (10:00→21:21)
[2018-05-19] MEDS: acetaZOLAMIDE 250 MG TAB PO SCH ×2 (10:00→21:21)
[2018-05-19] MEDS: PANTOPRAZOLE SODIUM 40 MG TAB PO SCH (10:00)
[2018-05-19] MEDS: TAMSULOSIN HCL 0.4 MG CAP PO SCH (10:00)
--- NOTE | 2018-05-19 13:43 | HOSPPROG ---
Hospitalist Progress Note Assessment/Plan: 68 yo M w severe gallstone pancreatitis, now anasarcic and hypoxic volume overload: significant and complicated by hypoalbuminemia. responding well to lasix gtt. -cont lasix gtt -cont diamox for contraction alkalosis -daily weights, fluid restriction -weight today 95 Kg AHRF: due to above, oxygen improved today down from 5-6 liters to 2-3 liters -CXR repeated. Still with volume overload, appears improving. personally reviewed. pleural effusion: bland fluid -echo findings noted- unlikely metastatic disease but d/w patient and needs follow up CT in 6 months cholelithiasis/choledocholithiasis: s/p ercp -needs cholecystectomy, timing TBD -appropriate to wait until intrabdominal inflammation decreased pancreatitis: severe, resolved -CT w e/o necrosis and early pseudocyst -last CT 05/03 w beginnings of oranizing fluid collection -repeat Repeat CT yesterday with \ Afib- new today. CHADS VASC is 1. Started on amiodarone today. Will discussed anticoagulation. NAHID: improved w albumin and volume resuscitation urinary retention: follow at this point, he is not uncomfortable polycythemia: likely 2/2 TARI vs volume depletion outpt sleep study proph: enox Nutrition:Low albumin. calorie count started today. if not taking adequate nutrition will consider tube feeds. dispo: remain ICU I spent 40 minutes of critical care time on the management of this patient. Subjective: breathing better. still very weak Objective: Vital Signs Temp Pulse Resp BP Pulse Ox 36.9 C 77 19 108/60 92 05/19/18 11:36 05/19/18 11:36 05/19/18 11:36 05/19/18 11:36 05/19/18 11:36 Microbiology 05/13/18 13:00 Gram Stain - Final Pleural Fluid - Aspirate Laboratory Results 05/19/18 05:25 05/19/18 12:00 05/18/18 05/19/18 05/20/18 05:59 05:59 05:59 Intake Total 1724 1136 Output Total 2500 2650 Balance -776 -1514 PT 15.6 SEC (12.0-15.0) H 05/13/18 10:23 INR 1.30 (0.83-1.16) H 05/13/18 10:23 - Physical Exam Constitutional: no apparent distress, appears nourished, not in pain Eyes: PERRL, anicteric sclera, EOMI Ears, Nose, Mouth, Throat: moist mucous membranes, hearing normal, ears appear normal, no oral mucosal ulcers Cardiovascular: regular rate and rhythym, no murmur, rub, or gallop Respiratory: no respiratory distress, no rales or rhonchi, clear to auscultation Gastrointestinal: normoactive bowel sounds, soft, non-tender abdomen, no palpable masses Genitourinary: no bladder fullness, no bladder tenderness, no renal bruits Skin: no rashes or abrasions, no fluctuance, no induration Musculoskeletal: full muscle strength, no muscle tenderness, normal joint ROM Neurologic: AAOx3, sensation intact bilaterally Psychiatric: interacting appropriately, not anxious, not encephalopathic, thought process linear Lymph, Heme, Immunologic: no cervical LAD, no supraclavicular LAD ICD10 Worksheet Patient Problems: Problems Problem Status Onset Ascites Acute Dehydration Acute Gallstone pancreatitis Acute Metabolic acidosis Acute
[2018-05-20] MEDS: LEVOTHYROXINE 25 MCG TAB PO SCH (05:12)
[2018-05-20] MEDS: TAMSULOSIN HCL 0.4 MG CAP PO SCH (09:00)
[2018-05-20] MEDS: PANTOPRAZOLE SODIUM 40 MG TAB PO SCH (09:00)
[2018-05-20] MEDS: acetaZOLAMIDE 250 MG TAB PO SCH ×2 (09:00→21:54)
[2018-05-20] MEDS: ENOXAPARIN 40 MG/0.4 ML SYR SC SCH (09:00)
[2018-05-20] MEDS: POTASSIUM CL 20 MEQ TAB PO SCH ×2 (09:00→21:54)
[2018-05-20] MEDS ORDERED: POTASSIUM CL 10 MEQ TAB PO ONE ×2 (10:08→21:39)
[2018-05-20] MEDS: FUROSEMIDE 100 MG in D5W 100 ML IV SCH (21:51)
[2018-05-21] MEDS: LEVOTHYROXINE 25 MCG TAB PO SCH (05:58)
[2018-05-21] MEDS: FUROSEMIDE 100 MG in D5W 100 ML IV SCH ×2 (09:10→19:29)
[2018-05-21] MEDS ORDERED: POTASSIUM CL 10 MEQ TAB PO ONE (09:11)
[2018-05-21] MEDS: POTASSIUM CL 20 MEQ TAB PO SCH ×2 (10:19→20:57)
[2018-05-21] MEDS: ENOXAPARIN 40 MG/0.4 ML SYR SC SCH (10:19)
[2018-05-21] MEDS: acetaZOLAMIDE 250 MG TAB PO SCH ×2 (10:19→20:57)
[2018-05-21] MEDS: TAMSULOSIN HCL 0.4 MG CAP PO SCH (10:20)
[2018-05-21] MEDS: PANTOPRAZOLE SODIUM 40 MG TAB PO SCH (10:20)
--- NOTE | 2018-05-21 10:31 | WOCRNPDOC ---
WOCRN Advanced Assessment Note - Skin Integrity Problem, Advanced Assess Left Upper Ear Dressing Type: Open to Air Wound Bed Constitution: Granulation Tissue (100%) Wound Edges: Epithelizing, Attached Site Measurement - Head-to-Toe Length X Width X Depth (cm): 0.5x0.3x0.2 Pressure Injury Stage: Stage 3, Director Of Psychiatry Related Pressure Injury (nasal cannula) Pressure Injury Present on Admit: No Skin Integrity Problem Comment: Discussed care with JOANA Galvan and patient. All questions answered. Wound care will follow. Right Upper Ear Dressing Type: Open to Air Exudate Amount: None Wound Bed Constitution: Scab Site Measurement - Head-to-Toe Length X Width X Depth (cm): 0.5x0.3xscab Pressure Injury Stage: Stage 3, Director Of Psychiatry Related Pressure Injury (nasal cannula ) Pressure Injury Present on Admit: No
[2018-05-21] MEDS: POLYETHYLENE GLYCOL 3350 17 GM PKT PO SCH (11:49)
--- NOTE | 2018-05-21 15:28 | ASMTCMCOM ---
CM Note CM Note Notes: 05/21/2018 Case Management Note Discussed with RN and MD this morning. Pt on lasix drip with gallstone pancreatits. There are no therapy evals ordered today. Case Management d/c poc: anticipating independent with follow up as directed. Case Management available if needs change. Date Signed: 05/21/2018 03:27 PM Electronically Signed By:Adrianna Gee RN
--- NOTE | 2018-05-21 17:42 | HOSPPROG ---
Hospitalist Progress Note Assessment/Plan: 68 yo M w severe gallstone pancreatitis, now anasarcic and hypoxic volume overload: significant and complicated by hypoalbuminemia. responding well to lasix gtt. still has a distended abdomen and is hypoxemic. -cont lasix gtt -cont diamox for contraction alkalosis -daily weights, fluid restriction -weight today 95 Kg -US abdomen today with moderate ascites. -CXR with large effusion- hopefully will be able to diurese off with lasix. If no change in respiratory status will obtain US thoracentesis in am AHRF: due to above, oxygen improved today down from 5-6 liters to 2-3 liters -CXR repeated. Still with volume overload, appears improving. pleural effusion: bland fluid -echo findings noted- unlikely metastatic disease but d/w patient and needs follow up CT in 6 months -may need repeat thora tomorrow if fails to diurese off. cholelithiasis/choledocholithiasis: s/p ercp -needs cholecystectomy, timing TBD -appropriate to wait until intrabdominal inflammation decreased pancreatitis: severe, resolved -CT w e/o necrosis and early pseudocyst -last CT 05/03 w beginnings of oranizing fluid collection Afib- CHADS VASC is 1. resolved with amiodarone. NAHID: improved w albumin and volume resuscitation urinary retention: salinas in place. polycythemia: likely 2/2 TARI vs volume depletion outpt sleep study proph: enox Nutrition:Low albumin. calorie count ongoing. if not taking adequate nutrition will consider tube feeds. dispo: Inpatient PCU for lasix gtt. Subjective: still short of breath and very weak. No ab pain, had a large bm today. Objective: Vital Signs Temp Pulse Resp BP Pulse Ox 36.8 C 90 18 117/60 91 L 05/21/18 16:00 05/21/18 16:00 05/21/18 16:00 05/21/18 16:00 05/21/18 16:00 Microbiology 05/13/18 13:00 Gram Stain - Final Pleural Fluid - Aspirate Anaerobic Culture - Final Laboratory Results 05/19/18 05:25 05/21/18 12:25 05/20/18 05/21/18 05/22/18 05:59 05:59 05:59 Intake Total 1190.8 250 570 Output Total 2160 2400 1100 Balance -969.2 -2150 -530 PT 15.6 SEC (12.0-15.0) H 05/13/18 10:23 INR 1.30 (0.83-1.16) H 05/13/18 10:23 - Physical Exam Constitutional: no apparent distress, appears nourished, not in pain Eyes: PERRL, anicteric sclera, EOMI Ears, Nose, Mouth, Throat: moist mucous membranes, hearing normal, ears appear normal, no oral mucosal ulcers Cardiovascular: regular rate and rhythym, no murmur, rub, or gallop Respiratory: no respiratory distress, reduced air movement, inspiratory crackles Gastrointestinal: normoactive bowel sounds, soft, non-tender abdomen, distension Genitourinary: no bladder fullness, no bladder tenderness, no renal bruits Skin: no rashes or abrasions, no fluctuance, no induration Musculoskeletal: full muscle strength, no muscle tenderness, normal joint ROM Neurologic: AAOx3, sensation intact bilaterally Psychiatric: interacting appropriately, not anxious, not encephalopathic, thought process linear Lymph, Heme, Immunologic: no cervical LAD, no supraclavicular LAD ICD10 Worksheet Patient Problems: Problems Problem Status Onset Ascites Acute Dehydration Acute Gallstone pancreatitis Acute Metabolic acidosis Acute
[2018-05-21] MEDS ORDERED: POTASSIUM CL 20 MEQ TAB PO ONE (20:43)
[2018-05-22 04:33] LABS: PLATELET COUNT 179 10^3/uL (150-400)
[2018-05-22] MEDS: LEVOTHYROXINE 25 MCG TAB PO SCH (05:10)
[2018-05-22] MEDS: FUROSEMIDE 100 MG in D5W 100 ML IV SCH ×2 (05:11→14:12)
[2018-05-22] MEDS ORDERED: POTASSIUM CL 10 MEQ TAB PO ONE (07:05)
[2018-05-22] MEDS: ENOXAPARIN 40 MG/0.4 ML SYR SC SCH (08:46)
[2018-05-22] MEDS: acetaZOLAMIDE 250 MG TAB PO SCH (08:47)
[2018-05-22] MEDS: PANTOPRAZOLE SODIUM 40 MG TAB PO SCH (08:47)
[2018-05-22] MEDS: TAMSULOSIN HCL 0.4 MG CAP PO SCH (08:47)
[2018-05-22] MEDS: POTASSIUM CL 20 MEQ TAB PO SCH ×2 (08:47→21:42)
[2018-05-22 11:26] LABS: INR 1.22 (0.83-1.16); PROTIME(PATIENT) 14.9 SEC (12.0-15.0)
--- NOTE | 2018-05-22 11:26 | CPEKG ---
Test Reason : OPEN Blood Pressure : / mmHG Vent. Rate : 121 BPM Atrial Rate : 113 BPM P-R Int : 142 ms QRS Dur : 110 ms QT Int : 322 ms P-R-T Axes : 000 -30 130 degrees QTc Int : 457 ms Atrial fibrillation Left axis deviation Anteroseptal infarct, old Repol abnrm suggests ischemia, lateral leads Confirmed by Oliver Yeung ([id number] on 05/22/2018 11:25:47 AM Referred By: Leroy Coburn Confirmed By:Oliver Yeung
[2018-05-22] MEDS: POLYETHYLENE GLYCOL 3350 17 GM PKT PO SCH (11:46)
[2018-05-22] MEDS ORDERED: LIDOCAINE 1% 300 MG/30 ML SDV ONE (14:09)
--- NOTE | 2018-05-22 15:07 | ASMTCMCOM ---
CM Note CM Note Notes: 05/22/2018 Case Management Note PT notes says home with supervison from family. OT note says no follow up. No further case management d/c needs identified. Case Management d/c poc: independent with follow up as recommended. Case Management available if needs change. Date Signed: 05/22/2018 03:06 PM Electronically Signed By:Adrianna Gee RN
--- NOTE | 2018-05-22 17:59 | HOSPPROG ---
Hospitalist Progress Note Assessment/Plan: 68 yo M w severe gallstone pancreatitis, now anasarcic and hypoxic. volume overload: significant and complicated by hypoalbuminemia. responding well to lasix gtt. Today he is below his dry weight prior to coming in to the hospital. he still has a large right effusion and an abdomen with substantial ascites that are not responding to lasix. -stop lasix -stop diamox -thora today removed 1900cc of fluid from right pleura -para tomorrow AHRF: due to above, was on 4 liters prior to thora. will titrate down as able after. -oxygen PRN Ascites- due to fluid overload from pancreatitis. not responding to diuresis. Could benefit from paracentesis. Will order for tomorrow at 1000. May benefit from albumin as well. pleural effusion: bland fluid -echo findings noted- unlikely metastatic disease but d/w patient and needs follow up CT in 6 months -status post thora today cholelithiasis/choledocholithiasis: s/p ercp -needs cholecystectomy, timing TBD -appropriate to wait until intrabdominal inflammation decreased pancreatitis: severe, resolved -CT w e/o necrosis and early pseudocyst -last CT 05/03 w beginnings of oranizing fluid collection Afib- CHADS VASC is 1. resolved with amiodarone. NAHID: improved w albumin and volume resuscitation urinary retention: salinas in place. polycythemia: likely 2/2 TARI vs volume depletion outpt sleep study proph: enox Nutrition:Low albumin. calorie count ongoing. if not taking adequate nutrition will consider tube feeds. dispo: inpatient for diuresis Subjective: still tired. short of breath. swelling improved. Objective: Vital Signs Temp Pulse Resp BP Pulse Ox 36.6 C 114 H 20 104/84 H 88 L 05/22/18 15:44 05/22/18 15:44 05/22/18 15:44 05/22/18 15:44 05/22/18 15:44 Microbiology 05/13/18 13:00 Gram Stain - Final Pleural Fluid - Aspirate Anaerobic Culture - Final Laboratory Results 05/22/18 04:05 05/22/18 12:25 05/21/18 05/22/18 05/23/18 05:59 05:59 05:59 Intake Total 250 970 550 Output Total 2400 2250 2400 Balance -2150 -1280 -1850 PT 14.9 SEC (12.0-15.0) 05/22/18 10:35 INR 1.22 (0.83-1.16) H 05/22/18 10:35 - Physical Exam Constitutional: no apparent distress, appears nourished, not in pain Eyes: PERRL, anicteric sclera, EOMI Ears, Nose, Mouth, Throat: moist mucous membranes, hearing normal, ears appear normal, no oral mucosal ulcers Cardiovascular: regular rate and rhythym, no murmur, rub, or gallop Respiratory: no respiratory distress Gastrointestinal: normoactive bowel sounds, distension Genitourinary: no bladder fullness, no bladder tenderness, no renal bruits Skin: no rashes or abrasions, no fluctuance, no induration Musculoskeletal: full muscle strength, no muscle tenderness, normal joint ROM Neurologic: AAOx3, sensation intact bilaterally Psychiatric: interacting appropriately, not anxious, not encephalopathic, thought process linear Lymph, Heme, Immunologic: no cervical LAD, no supraclavicular LAD ICD10 Worksheet Patient Problems: Problems Problem Status Onset Ascites Acute Dehydration Acute Gallstone pancreatitis Acute Metabolic acidosis Acute
[2018-05-23] MEDS: HYDROCODONE/APAP 5/325 TAB PO PRN (06:30)
[2018-05-23] MEDS: LEVOTHYROXINE 25 MCG TAB PO SCH (06:30)
[2018-05-23] MEDS: TAMSULOSIN HCL 0.4 MG CAP PO SCH (08:10)
[2018-05-23] MEDS: PANTOPRAZOLE SODIUM 40 MG TAB PO SCH (08:10)
[2018-05-23] MEDS: POTASSIUM CL 20 MEQ TAB PO SCH ×2 (08:10→20:14)
[2018-05-23] MEDS: POLYETHYLENE GLYCOL 3350 17 GM PKT PO SCH (08:12)
[2018-05-23] MEDS ORDERED: POTASSIUM CL 10 MEQ TAB PO ONE (09:29)
[2018-05-23] MEDS ORDERED: ALBUMIN 25% 200 ML IV ONE (15:08)
--- NOTE | 2018-05-23 15:09 | HOSPPROG ---
Hospitalist Progress Note Assessment/Plan: 68 yo M w severe gallstone pancreatitis, now anasarcic and hypoxic poor nutrition input volume overload: overall improved s/p lasix gtt but remains with significant ascites. Plan for paracentesis today. Will resume lasix IVP and continue to monitor. Breathing improved s/p thoracentesis. AHRF: due to above, was on 4 liters prior to thora. will titrate down as able after. Ascites- due to fluid overload from pancreatitis. not responding to diuresis. Paracentesis as aboved pleural effusion: bland fluid -echo findings noted- unlikely metastatic disease but d/w patient and needs follow up CT in 6 months cholelithiasis/choledocholithiasis: s/p ercp -needs cholecystectomy, timing TBD, ascites needs improved prior ideally pancreatitis: severe, resolved -most recent CT 05/15 with peripancreatic fluid collection and evolving phlegmon, moderate ascites that may be septated Afib- CHADS VASC is 1. resolved with amiodarone. NAHID: improved w albumin and volume resuscitation urinary retention: salinas in place. polycythemia: likely 2/2 TARI vs volume depletion outpt sleep study proph: enox Nutrition:Low albumin. calorie count ongoing. if not taking adequate nutrition will consider tube feeds. Intake remains poor, will need to decide about TF by Friday, if intake does not improve post ascites drainage dispo: inpatient for diuresis ongoing severe illness Subjective: no significant overnight events, patient feels poorly--very weak, no appetitie Objective: Vital Signs Temp Pulse Resp BP Pulse Ox 36.8 C 78 18 105/65 98 05/23/18 11:59 05/23/18 11:59 05/23/18 11:59 05/23/18 11:59 05/23/18 11:59 Laboratory Results 05/22/18 04:05 05/23/18 08:15 05/22/18 05/23/18 05/24/18 05:59 05:59 05:59 Intake Total 970 1240 350 Output Total 2250 3400 Balance -1280 -2160 350 PT 14.9 SEC (12.0-15.0) 05/22/18 10:35 INR 1.22 (0.83-1.16) H 05/22/18 10:35 ill appearing, uncomfortable anicteric op clear rrr no mrg dec bs at bases distended, ascites present 2+ pitting edema ble warm dry well perfused oriented appropriate ICD10 Worksheet Patient Problems: Problems Problem Status Onset Ascites Acute Dehydration Acute Gallstone pancreatitis Acute Metabolic acidosis Acute
[2018-05-23] MEDS: ENOXAPARIN 40 MG/0.4 ML SYR SC SCH (17:45)
[2018-05-23] MEDS: PSYLLIUM METAMUCIL 1 PKT PO SCH (20:00)
[2018-05-24] MEDS: LEVOTHYROXINE 25 MCG TAB PO SCH (05:26)
[2018-05-24 05:54] LABS: PLATELET COUNT 470 10^3/uL (150-400)
[2018-05-24] MEDS ORDERED: POTASSIUM CL 10 MEQ TAB PO ONE (08:06)
[2018-05-24] MEDS: ENOXAPARIN 40 MG/0.4 ML SYR SC SCH (08:14)
[2018-05-24] MEDS: PSYLLIUM METAMUCIL 1 PKT PO SCH (08:14)
[2018-05-24] MEDS: TAMSULOSIN HCL 0.4 MG CAP PO SCH (08:14)
[2018-05-24] MEDS: POLYETHYLENE GLYCOL 3350 17 GM PKT PO SCH (08:14)
[2018-05-24] MEDS: PANTOPRAZOLE SODIUM 40 MG TAB PO SCH (08:14)
[2018-05-24] MEDS: POTASSIUM CL 20 MEQ TAB PO SCH ×2 (08:15→20:36)
[2018-05-24] MEDS ORDERED: FUROSEMIDE 20 MG/2 ML VIAL IVP SCH ×2 (09:00→21:00)
[2018-05-24] MEDS ORDERED: D10W 1,000 ML IV PRN (10:53)
[2018-05-24] MEDS ORDERED: ALTEPLASE 2 MG VIAL IVP PRN (10:53)
--- NOTE | 2018-05-24 12:17 | ASMTCMCOM ---
CM Note CM Note Notes: 05/24/2018 Case Management Note Discussed with RN and MD. Pt to start TPN. Discharge needs remain uncertain. PT eval on 05/22 cleared for home with family. OT discharged from hospital services on 05/23. Case Management d/c poc: to be determined, anticipating independent. Case Management to follow. Date Signed: 05/24/2018 12:16 PM Electronically Signed By:Adrianna Gee RN
[2018-05-24] MEDS ORDERED: ALBUMIN 25% 200 ML IV ONE ×2 (12:22→15:30)
[2018-05-24] MEDS: SPIRONOLACTONE 50 MG TAB PO SCH ×2 (12:25→20:36)
--- NOTE | 2018-05-24 13:05 | GCON ---
[f rep st] CONSULTATION REFERRING PHYSICIAN: Calvin Edwards MD REASON FOR CONSULTATION: Possible treatment of ascites. HISTORY: The patient was hospitalized on April 20 for severe pancreatitis (Lipase 12,000, now down to 1077). His weight peak was 108 kg. He is now down to 91 kg, but still has anasarca and ascites. Recently 1900 cc was removed from his right chest with thoracentesis. An attempt was made to decrease his ascites, but Interventional Radiology was only able to extract approximately 50 cc. Diuretics.are being used His nutrition is poor with a total lymphocyte count of only 600. A pre-albumin is pending. He is chronically on thyroid supplementation. TSH could be drawn at this point. His white count is 20,000 with 3% bands. He has a tensely distended abdomen. He did move his bowels yesterday and is passing some gas. It is difficult for him to eat. IMPRESSION: Ascites compromising his ability to eat and absorb his nutrition. I do not feel a surgical approach to draining the ascites is appropriate, nor do I feel that a cholecystectomy for his gallstones is appropriate at this time. I do feel that parental nutrition is our next step and then enteral nutrition when appropriate. His creatinine is 1.0, his BUN is 31. I feel that he is fluid oberloaded but intravascularly dry. I would recommend aggressively treating the ascites with the addition of spironolactone (that has been started this morning) in addition to the Lasix, and I also would suggest perhaps a dose of salt-poor albumin prior to the next Lasix dose to see if we can recruit fluid into the intravascular space. I have spoken with the patient and his brother as well as Dr. Edwards regarding my recommendations. Thank you for asking me to participate in his care. If surgery can be of any further assistance, pleasew re-consult /[id number]/MODL MTDD
--- NOTE | 2018-05-24 16:24 | HOSPPROG ---
Hospitalist Progress Note Assessment/Plan: 68 yo M w severe gallstone pancreatitis, now anasarcic and hypoxic poor nutrition input volume overload: overall improved s/p lasix gtt but remains with significant ascites. Paracentesis attempted yesterday unfortunately fluid collection too loculated. Surgery consulted, no good surgical options. Started back on IV lasix and spironolactone with intermittent albumin malnutrition: prolonged hospitalization, prolonged period of NPO and now although taking some PO still getting very little in way of calories, albumin 2. Discussed with patients brother and surgery, given significant ascites and abdominal inflammation, will start with TPN and consider TF in several days. Calorie counts, dietary involved. PICC to be placed in am. AHRF: due to above, was on 4 liters prior to thora and now on 2L. Will get repeat cxr in am after PICC placement Ascites- due to fluid overload from pancreatitis. not responding to diuresis as above pleural effusion: bland fluid -echo findings noted discussing fibrinous material in fluid concerning for metastasis- unlikely metastatic disease but d/w patient and needs follow up CT in 6 months cholelithiasis/choledocholithiasis: s/p ercp -needs cholecystectomy, timing TBD, ascites needs improved prior ideally given complications surgery would present in that case pancreatitis: severe, resolving -most recent CT 05/15 with peripancreatic fluid collection and evolving phlegmon Afib- CHADS VASC is 1. resolved with amiodarone. NAHID: improved w albumin and volume resuscitation urinary retention: salinas in place. polycythemia: likely 2/2 TARI vs volume depletion outpt sleep study proph: enox dispo: inpatient for diuresis ongoing severe illness Subjective: patient remains very low spirits today, abdomen distended, appetitie poor, brother present at bedside Objective: Vital Signs Temp Pulse Resp BP Pulse Ox 36.8 C 90 20 111/61 95 05/24/18 15:52 05/24/18 15:52 05/24/18 15:52 05/24/18 15:52 05/24/18 15:52 Laboratory Results 05/24/18 05:35 05/24/18 05:35 05/23/18 05/24/18 05/25/18 05:59 05:59 05:59 Intake Total 1240 1450 360 Output Total 3400 475 Balance -2160 975 360 PT 14.9 SEC (12.0-15.0) 05/22/18 10:35 INR 1.22 (0.83-1.16) H 05/22/18 10:35 ill appearing, uncomfortable anicteric op clear rrr no mrg dec bs at bases distended, ascites present 2+ pitting edema ble warm dry well perfused oriented appropriate - Time Spent With Patient Time Spent with Patient: greater than 35 minutes Time Spent with Patient: Greater than 35 minutes spent on this patients care, greater than 50% of time spent counseling, educating, and coordinating care regarding the above mentioned plan. ICD10 Worksheet Patient Problems: Problems Problem Status Onset Ascites Acute Dehydration Acute Gallstone pancreatitis Acute Metabolic acidosis Acute
[2018-05-24] MEDS: FUROSEMIDE 20 MG/2 ML VIAL IVP SCH (16:39)
[2018-05-25] MEDS: HYDROCODONE/APAP 5/325 TAB PO PRN ×2 (01:25→22:46)
[2018-05-25] MEDS: LEVOTHYROXINE 25 MCG TAB PO SCH (05:58)
[2018-05-25 06:15] LABS: PLATELET COUNT 429 10^3/uL (150-400)
[2018-05-25 06:23] LABS: INR 1.38 (0.83-1.16); PROTIME(PATIENT) 16.4 SEC (12.0-15.0)
[2018-05-25] MEDS: FUROSEMIDE 20 MG/2 ML VIAL IVP SCH ×2 (10:38→17:25)
[2018-05-25] MEDS: PANTOPRAZOLE SODIUM 40 MG TAB PO SCH (10:49)
[2018-05-25] MEDS: SPIRONOLACTONE 50 MG TAB PO SCH ×2 (10:49→19:37)
[2018-05-25] MEDS: PSYLLIUM METAMUCIL 1 PKT PO SCH (10:50)
[2018-05-25] MEDS: POLYETHYLENE GLYCOL 3350 17 GM PKT PO SCH (10:50)
[2018-05-25] MEDS: TAMSULOSIN HCL 0.4 MG CAP PO SCH (10:50)
[2018-05-25] MEDS: ENOXAPARIN 40 MG/0.4 ML SYR SC SCH (10:50)
[2018-05-25] MEDS: POTASSIUM CL 20 MEQ TAB PO SCH ×2 (10:50→19:37)
--- NOTE | 2018-05-25 14:09 | HOSPPROG ---
Hospitalist Progress Note Assessment/Plan: 68 yo M w severe gallstone pancreatitis, now with anasarca, hypoxia, poor nutrition pancreatitis: severe, resolving -most recent CT 05/15 with peripancreatic fluid collection and evolving phlegmon cholelithiasis/choledocholithiasis: s/p ercp -needs cholecystectomy, timing TBD, ascites needs improved prior ideally given complications surgery would present in that case volume overload: overall improved s/p lasix gtt but ascites persists and still several liters net positive, though wt down 18 kg. Paracentesis attempted 05/23 , but fluid collection loculated. Surgery consulted, no good surgical options. -cont albumin/lasix -cont spironolactone -follow I&O's, daily weights malnutrition: prolonged hospitalization, prolonged period of NPO, albumin 2. PICC was placed yesterday for TPN given bowel inflammation, though he is eating [employer] today -discussed with dietary if ongoing need for tube feeds vs tpn. Dietary does not think he needs artificial nutrition support given his improvement -encourage oral intake, cont calorie counts AHRF: due to above, was on 4 liters prior to thora and now on 2L. -wean o2 as able Ascites: due to fluid overload from pancreatitis. not responding great to diuresis as above pleural effusion: bland fluid -echo findings noted discussing fibrinous material in fluid concerning for metastasis- unlikely metastatic disease but d/w patient and needs follow up CT in 6 months Afib- CHADS VASC is 1. resolved with amiodarone. NAHID: improved w albumin and volume resuscitation urinary retention: salinas in place. polycythemia: likely 2/2 TARI vs volume depletion outpt sleep study proph: enox dispo: inpatient for diuresis ongoing severe illness Subjective: Pt feels ok. Less pain. Taking po better today, ate [employer] sandwich for lunch. Taking ensure, smoothies. No fevers/chills. No N/V. +BM' s Objective: Vital Signs Temp Pulse Resp BP Pulse Ox 36.8 C 95 20 114/69 94 05/25/18 12:00 05/25/18 12:00 05/25/18 12:00 05/25/18 12:00 05/25/18 12:00 Laboratory Results 05/25/18 06:00 05/25/18 06:00 0305/25/18 05/26/18 05:59 05:59 05:59 Intake Total 1450 1900 Output Total 475 950 450 Balance 975 950 -450 PT 16.4 SEC (12.0-15.0) H 05/25/18 06:00 INR 1.38 (0.83-1.16) H 05/25/18 06:00 - Physical Exam Constitutional: no apparent distress Eyes: PERRL Ears, Nose, Mouth, Throat: moist mucous membranes Cardiovascular: regular rate and rhythym Respiratory: no respiratory distress, reduced air movement, inspiratory crackles Gastrointestinal: other (soft, +distention, non-tender, no r/r/g, +BS) Skin: warm Musculoskeletal: full muscle strength, other (1+ b/l LE pitting edema) Neurologic: AAOx3 Psychiatric: interacting appropriately ICD10 Worksheet Patient Problems: Problems Problem Status Onset Ascites Acute Dehydration Acute Gallstone pancreatitis Acute Metabolic acidosis Acute
[2018-05-25] MEDS ORDERED: ALBUMIN 25% 100 ML IV ONE (14:45)
[2018-05-26] MEDS: LEVOTHYROXINE 50 MCG TAB PO SCH (07:16)
[2018-05-26 08:25] LABS: PLATELET COUNT 453 10^3/uL (150-400)
[2018-05-26] MEDS: POTASSIUM CL 20 MEQ TAB PO SCH ×2 (10:02→20:20)
[2018-05-26] MEDS: SPIRONOLACTONE 50 MG TAB PO SCH ×2 (10:02→20:20)
[2018-05-26] MEDS: PANTOPRAZOLE SODIUM 40 MG TAB PO SCH (10:03)
[2018-05-26] MEDS: TAMSULOSIN HCL 0.4 MG CAP PO SCH (10:03)
[2018-05-26] MEDS: POLYETHYLENE GLYCOL 3350 17 GM PKT PO SCH (10:04)
[2018-05-26] MEDS: PSYLLIUM METAMUCIL 1 PKT PO SCH (10:04)
[2018-05-26] MEDS: ENOXAPARIN 40 MG/0.4 ML SYR SC SCH (10:07)
[2018-05-26] MEDS: FUROSEMIDE 20 MG/2 ML VIAL IVP SCH ×2 (10:08→16:35)
--- NOTE | 2018-05-26 17:41 | HOSPPROG ---
Hospitalist Progress Note Assessment/Plan: DIAGNOSES: * Severe pancreatitis suspected gallstone cause * Evolving teodora pancreatic fluid collection and phlegmon * Cholelithiasis and choledocholithiasis status post ERCP * Volume overload and anasarca * Malnutrition with poor oral intake: Has started eating some food orally * Acute hypoxemic respiratory failure due to above, pleural effusions involved * Episodes of AFib resolved after amiodarone * Acute kidney injury improved * Acute urinary retention Arciniega catheter in place * Polycythemia * Obstructive sleep apnea has been observed here PLANS: * At this point the patient is eating some food but not seeming to get sufficient intake and so I will have him start on some TPN which will be able to startle tomorrow * Continue increasing ambulation as he has been * Continue twice daily IV Lasix, monitor output and renal function * Continue to follow how he is voiding his bladder watch for any signs of further bleeding * Low-dose levothyroxine was started today, will continue to follow symptoms, consider repeating TSH and free T3 and free T4 after several days and he will need outpatient follow-up * Continue pantoprazole at this time * Continue DVT prophylaxis Seen by me today on hospitalist rounds as well as multidisciplinary rounds Patient had many questions which I answered in detail for him today, reviewed overall care plan and monitoring plan with him SUBJECTIVE: Date continues to have significant abdominal bloating and discomfort, is eating small amounts of oral food and small amounts of oral liquid, certainly not getting enough protein and calories to sustain him through recovery sufficiently though final counts are pending He did have some urethral discomfort and passed a small blood clot today but is continued empties bladder, no current symptoms to suggest infection or fever Breathing is unchanged still requiring some oxygen Is ambulating okay Is having bowel movements OBJECTIVE Vitals reviewed: All stable without fever Motivational Speaker, my review: Sinus Exam: alert oriented looks very tired and weak skin warm dry pale, no jaundice resps not labored at rest in chair on oxygen lungs diminished breath sounds at bases with some rales there heart regular abd soft remains severely distended, mildly tender without rebound, few bowel sounds limbs warm, still with bilateral pitting edema from upper calf down to feet PICC site looks good Lab data: White blood cell count still high at 16,000 thousand Hemoglobin stable at 9 On chemistry remains hypercarbic, electrolytes stable, BUN slowly improving creatinine normal Objective: Vital Signs Temp Pulse Resp BP Pulse Ox 36.9 C 96 18 115/68 20 L 05/26/18 16:00 05/26/18 16:00 05/26/18 11:31 05/26/18 16:00 05/26/18 16:00 Laboratory Results 05/26/18 08:05 05/26/18 08:05 05/25/18 05/26/18 05/27/18 06:59 06:59 06:59 Intake Total 1900 925 Output Total 1275 1900 450 Balance 625 -975 -450 PT 16.4 SEC (12.0-15.0) H 05/25/18 06:00 INR 1.38 (0.83-1.16) H 05/25/18 06:00 - Time Spent With Patient Time Spent with Patient: greater than 35 minutes Time Spent with Patient: Greater than 35 minutes spent on this patients care, greater than 50% of time spent counseling, educating, and coordinating care regarding the above mentioned plan. ICD10 Worksheet Patient Problems: Problems Problem Status Onset Ascites Acute Dehydration Acute Gallstone pancreatitis Acute Metabolic acidosis Acute
[2018-05-26] MEDS: HYDROCODONE/APAP 5/325 TAB PO PRN (22:40)
[2018-05-27] MEDS: LEVOTHYROXINE 50 MCG TAB PO SCH (06:16)
[2018-05-27] MEDS: PANTOPRAZOLE SODIUM 40 MG TAB PO SCH (08:44)
[2018-05-27] MEDS: TAMSULOSIN HCL 0.4 MG CAP PO SCH (08:44)
[2018-05-27] MEDS: PSYLLIUM METAMUCIL 1 PKT PO SCH (08:44)
[2018-05-27] MEDS: POLYETHYLENE GLYCOL 3350 17 GM PKT PO SCH (08:44)
[2018-05-27] MEDS: FUROSEMIDE 20 MG/2 ML VIAL IVP SCH ×2 (08:44→14:38)
[2018-05-27] MEDS: POTASSIUM CL 20 MEQ TAB PO SCH ×2 (08:44→20:57)
[2018-05-27] MEDS: SPIRONOLACTONE 50 MG TAB PO SCH ×2 (08:44→20:57)
[2018-05-27] MEDS: ENOXAPARIN 40 MG/0.4 ML SYR SC SCH (08:45)
[2018-05-27] MEDS ORDERED: D10W 1,000 ML IV PRN (10:50)
--- NOTE | 2018-05-27 11:37 | ASMTCMCOM ---
CM Note CM Note Notes: 05/27/2018 Case Management Note Met w/pt during rounds this morning. present. Pt ambulating in room without difficulty. Case Management d/c poc: anticipating independent with follow up as directed. Case Management to follow. Date Signed: 05/27/2018 11:36 AM Electronically Signed By:Adrianna Gee RN
--- NOTE | 2018-05-27 12:05 | HOSPPROG ---
Hospitalist Progress Note Assessment/Plan: DIAGNOSES: * Severe pancreatitis suspected gallstone cause * Evolving teodora pancreatic fluid collection and phlegmon * Cholelithiasis and choledocholithiasis status post ERCP * Volume overload and anasarca * Malnutrition with poor oral intake: Has started eating some food orally * Acute hypoxemic respiratory failure due to above, pleural effusions involved * Episodes of AFib resolved after amiodarone * Acute kidney injury improved * Acute urinary retention Arciniega catheter in place * Polycythemia - currently anemic from inflammation/nutrition * Obstructive sleep apnea has been observed here Eating but still w inadequate protein/calories. He is still fairly edematous and with ascites, hypoalbuminemia. Starting to get tachycardia likely due to decrased intravasc volumes as we try to diurese. Ambulating but recovery of strength still very slow. PLANS: * Begin TPN today as intake of protein and calories still short of goal - goal is to try to facilitate faster strength recovery and ability to diurese better * Continue increasing ambulation as he has been * Continue twice daily IV Lasix, monitor output and renal function * Continue to follow how he is voiding his bladder watch for any signs of further bleeding * Low-dose levothyroxine was started today, will continue to follow symptoms, consider repeating TSH and free T3 and free T4 after several days and he will need outpatient follow-up * Continue pantoprazole at this time * Continue DVT prophylaxis * goal to likely DC home on 05/29- at present Seen by me today on hospitalist rounds as well as multidisciplinary rounds I had a long bedside discussion w patient and today about current tx plans/ goals, his progress so far, and planning for DC to home, answered their questions in detail SUBJECTIVE: Better bowel fxn and bladder emptying per pt today no real increase in appetite or strength OBJECTIVE Vitals reviewed: All stable without fever 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, 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: Sinus Exam: alert oriented looks very tired and weak skin warm dry pale, no jaundice resps not labored at rest in chair on oxygen lungs diminished breath sounds at bases with some rales there heart regular abd soft remains severely distended, mildly tender without rebound, few bowel sounds limbs warm, still with bilateral pitting edema from upper calf down to feet PICC site looks good Lab data: todays labs still pending Objective: Vital Signs Temp Pulse Resp BP Pulse Ox 36.8 C 93 16 104/69 94 05/27/18 08:00 05/27/18 08:00 05/27/18 08:00 05/27/18 08:00 05/27/18 08:00 Laboratory Results 05/26/18 08:05 05/27/18 08:53 05/26/18 05/27/18 05/28/18 06:59 06:59 06:59 Intake Total 925 200 Output Total 1900 1250 200 Balance -975 -1050 -200 PT 16.4 SEC (12.0-15.0) H 05/25/18 06:00 INR 1.38 (0.83-1.16) H 05/25/18 06:00 - Time Spent With Patient Time Spent with Patient: greater than 35 minutes Time Spent with Patient: Greater than 35 minutes spent on this patients care, greater than 50% of time spent counseling, educating, and coordinating care regarding the above mentioned plan. ICD10 Worksheet Patient Problems: Problems Problem Status Onset Ascites Acute Dehydration Acute Gallstone pancreatitis Acute Metabolic acidosis Acute
[2018-05-27 12:09] LABS: INR 1.52 (0.83-1.16); PROTIME(PATIENT) 17.6 SEC (12.0-15.0)
[2018-05-27 12:17] LABS: PLATELET COUNT 520 10^3/uL (150-400)
[2018-05-27] MEDS: TPN 1 EA BAG IV SCH (20:57)
[2018-05-28] MEDS: HYDROCODONE/APAP 5/325 TAB PO PRN ×3 (02:29→22:45)
[2018-05-28] MEDS: LEVOTHYROXINE 50 MCG TAB PO SCH (05:17)
[2018-05-28 05:23] LABS: PLATELET COUNT 480 10^3/uL (150-400)
[2018-05-28 05:34] LABS: INR 1.39 (0.83-1.16); PROTIME(PATIENT) 16.5 SEC (12.0-15.0)
[2018-05-28] MEDS: SPIRONOLACTONE 50 MG TAB PO SCH ×2 (08:22→21:03)
[2018-05-28] MEDS: ENOXAPARIN 40 MG/0.4 ML SYR SC SCH (08:22)
[2018-05-28] MEDS: PANTOPRAZOLE SODIUM 40 MG TAB PO SCH (08:22)
[2018-05-28] MEDS: TAMSULOSIN HCL 0.4 MG CAP PO SCH (08:22)
[2018-05-28] MEDS: POTASSIUM CL 20 MEQ TAB PO SCH ×2 (08:22→21:02)
[2018-05-28] MEDS: FUROSEMIDE 20 MG/2 ML VIAL IVP SCH ×2 (08:23→14:01)
[2018-05-28] MEDS: PSYLLIUM METAMUCIL 1 PKT PO SCH (08:25)
[2018-05-28] MEDS: POLYETHYLENE GLYCOL 3350 17 GM PKT PO SCH (08:25)
--- NOTE | 2018-05-28 09:29 | WOCRNPDOC ---
WOCRN Advanced Assessment Note - Skin Integrity Problem, Advanced Assess Left Upper Ear Dressing Type: Hydrocolloid Dressing Description: Clean/Dry, Intact Integumentary Issue Intervention: Dressing Removed Wound Bed Color: [place] Wound Bed Constitution: Healed Pressure Injury Stage: Angio Technologist Related Pressure Injury Pressure Injury Present on Admit: No Skin Integrity Problem Comment: Pressure injury healed. Cavilon skin prep applied for tissue protection. O2 tubing cushions in place. Gabi BERNARD notified. Wound care will sign off. Right Upper Ear Dressing Type: Hydrocolloid Dressing Description: Clean/Dry, Intact Wound Bed Color: [place] Wound Bed Constitution: Healed Pressure Injury Stage: Angio Technologist Related Pressure Injury Pressure Injury Present on Admit: No Skin Integrity Problem Comment: Pressure injury healed. Cavilon skin prep applied for tissue protection. O2 tubing cushions in place. Gabi BERNARD notified. Wound care will sign off.
--- NOTE | 2018-05-28 14:46 | HOSPPROG ---
Hospitalist Progress Note Assessment/Plan: DIAGNOSES: * Severe pancreatitis suspected gallstone cause * Evolving teodora pancreatic fluid collection and phlegmon * Cholelithiasis and choledocholithiasis status post ERCP * Volume overload and anasarca * Malnutrition with poor oral intake: Has started eating some food orally * Acute hypoxemic respiratory failure due to above, pleural effusions involved * Episodes of AFib resolved after amiodarone * Acute kidney injury improved * Acute urinary retention Arciniega catheter in place * Polycythemia - currently anemic from inflammation/nutrition * Obstructive sleep apnea has been observed here Eating but still w inadequate protein/calories. He is still fairly edematous and with ascites, hypoalbuminemia. Starting to get tachycardia likely due to decrased intravasc volumes as we try to diurese. Ambulating but recovery of strength still very slow. PLANS: * Continue TPN up until discharge * Continue increasing ambulation as he has been * Continue twice daily IV Lasix, monitor output and renal function * Continue levothyroxine, he will need a TSH recheck in 6 weeks * Continue pantoprazole at this time * Continue DVT prophylaxis * goal to likely DC home on at present * He will need outpatient follow-up with Gastroenterology and a CT scan at that time as well * Will need eventual cholecystectomy when he is stable enough and strong and nourished enough Seen by me today on hospitalist rounds as well as multidisciplinary rounds I had a long bedside discussion w patient and today about current tx plans/ goals, his progress so far, and planning for DC to home, answered their questions in detail SUBJECTIVE: No change in how he feels today Still able to eat some food Still feels very bloated and somewhat sore in the abdomen but is having bowel sounds and bowel movement No nausea or vomiting No shortness of breath but still needing oxygen though this is down to 1 liter/ minutes Ambulating in [place] OBJECTIVE Vitals reviewed: All stable without fever Oxygen: Decreased to 1 liter/minute today 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, 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: Sinus Exam: alert oriented looks very tired and weak unchanged from past skin warm dry pale, no jaundice resps not labored at rest in chair on oxygen lungs diminished breath sounds at bases with some rales there heart regular abd soft remains quite distended but soft, mildly tender without rebound, bowel sounds a bit better limbs warm, some decrease in pitting edema at ankles but still present PICC site looks good Lab data: Slight drop in white blood cell count and slight drop in hemoglobin Minimal elevation in glucose, potassium and renal function good Liver enzymes and bilirubin normal Objective: Vital Signs Temp Pulse Resp BP Pulse Ox 36.8 C 90 18 116/62 94 05/28/18 12:00 05/28/18 12:00 05/28/18 12:00 05/28/18 12:00 05/28/18 12:00 Laboratory Results 05/28/18 05:00 05/28/18 05:00 05/27/18 05/28/18 05/29/18 06:59 06:59 06:59 Intake Total 200 1270 325 Output Total 1250 1575 725 Balance -1050 -305 -400 PT 16.5 SEC (12.0-15.0) H 05/28/18 05:00 INR 1.39 (0.83-1.16) H 05/28/18 05:00 - Time Spent With Patient Time Spent with Patient: greater than 35 minutes Time Spent with Patient: Greater than 35 minutes spent on this patients care, greater than 50% of time spent counseling, educating, and coordinating care regarding the above mentioned plan. ICD10 Worksheet Patient Problems: Problems Problem Status Onset Ascites Acute Dehydration Acute Gallstone pancreatitis Acute Metabolic acidosis Acute
[2018-05-28] MEDS: TPN 1 EA BAG IV SCH (21:02)
[2018-05-29] MEDS: LEVOTHYROXINE 50 MCG TAB PO SCH (05:25)
[2018-05-29 05:32] LABS: PLATELET COUNT 464 10^3/uL (150-400)
[2018-05-29 05:48] LABS: INR 1.46 (0.83-1.16); PROTIME(PATIENT) 17.1 SEC (12.0-15.0)
[2018-05-29] MEDS ORDERED: ALBUMIN 25% 100 ML IV ONE ×2 (06:21→08:00)
[2018-05-29] MEDS: ALBUMIN 25% 100 ML IV SCH ×2 (08:13→14:33)
[2018-05-29] MEDS ORDERED: MAGNESIUM SULF 1 GM/DEXTROSE 100 ML IV ONE (09:00)
[2018-05-29] MEDS: POTASSIUM CL 20 MEQ TAB PO SCH ×2 (09:35→22:13)
[2018-05-29] MEDS: POLYETHYLENE GLYCOL 3350 17 GM PKT PO SCH (09:35)
[2018-05-29] MEDS: TAMSULOSIN HCL 0.4 MG CAP PO SCH (09:35)
[2018-05-29] MEDS: PSYLLIUM METAMUCIL 1 PKT PO SCH (09:35)
[2018-05-29] MEDS: SPIRONOLACTONE 50 MG TAB PO SCH ×2 (09:35→21:43)
[2018-05-29] MEDS: PANTOPRAZOLE SODIUM 40 MG TAB PO SCH (09:35)
[2018-05-29] MEDS: ENOXAPARIN 40 MG/0.4 ML SYR SC SCH (09:37)
[2018-05-29] MEDS: FUROSEMIDE 20 MG/2 ML VIAL IVP SCH ×2 (09:44→16:17)
[2018-05-29] MEDS: HYDROCODONE/APAP 5/325 TAB PO PRN ×2 (10:30→21:42)
[2018-05-29] MEDS ORDERED: FUROSEMIDE 20 MG/2 ML VIAL IVP SCH (15:08)
--- NOTE | 2018-05-29 15:10 | HOSPPROG ---
Hospitalist Progress Note Assessment/Plan: 68 yo M w severe gallstone pancreatitis, now with anasarca, hypoxia, poor nutrition pancreatitis: severe, slow to resolve, but pt feels improvement -most recent CT 05/15 with peripancreatic fluid collection and evolving phlegmon leukocytosis: likely 2/2 above, afebrile cholelithiasis/choledocholithiasis: s/p ercp -needs cholecystectomy eventually when ascites improves volume overload: s/p lasix gtt but ascites persists and still several liters net positive, though wt down 18 kg. Paracentesis attempted 05/23, but fluid collection loculated. Surgery consulted, no good surgical options. -cont albumin/lasix, increase lasix to 40 IV bid as he has not had much change in volume status since I saw him several days ago -cont spironolactone -follow I&O's, daily weights malnutrition: prolonged hospitalization, prolonged period of NPO, albumin 2.2 -cont tpn until discharge, slowly improving oral caloric intake -dietary following AHRF: due to above, was on 4 liters prior to thora and now on 2L. -wean o2 as able Ascites: due to fluid overload / pancreatitis. not responding great to diuresis. Failed attempt at paracentesis due to loculated fluid. -increase Lasix as above pleural effusion: bland fluid. echo showed fibrinous material in fluid concerning for metastasis- unlikely metastatic disease but plan for follow up CT in 6 months -will also request cytology on pleural fluid from 05/22 if able to add on Afib- CHADS VASC is 1. resolved with amiodarone. NAHID: improved w albumin and volume resuscitation urinary retention: salinas removed polycythemia: likely 2/2 TARI vs volume depletion outpt sleep study proph: enox dispo: inpatient for IV diuresis, ongoing illness Subjective: Pt notes small improvements each day. Tolerating more po. BM's slowly normalizing. Pain slowly decreasing with oral intake. No fevers/chills. Objective: Vital Signs Temp Pulse Resp BP Pulse Ox 36.5 C 81 16 105/70 93 05/29/18 08:00 05/29/18 08:00 05/29/18 08:00 05/29/18 08:00 05/29/18 08:00 Laboratory Results 05/29/18 05:21 05/29/18 05:21 05/28/18 05/29/18 05/30/18 05:59 05:59 05:59 Intake Total 1270 873 237 Output Total 3586 2747 1123 Balance -305 902 -248 PT 17.1 SEC (12.0-15.0) H 05/29/18 05:21 INR 1.46 (0.83-1.16) H 05/29/18 05:21 - Physical Exam Constitutional: no apparent distress Eyes: PERRL Ears, Nose, Mouth, Throat: moist mucous membranes Cardiovascular: regular rate and rhythym Respiratory: no respiratory distress, reduced air movement, other (diminished at bases b/l) Gastrointestinal: other (soft, still with marked distention, ascites, non-tender , +BS) Skin: warm Musculoskeletal: full muscle strength, other (2+ b/l LE pitting edema) Neurologic: AAOx3 Psychiatric: interacting appropriately ICD10 Worksheet Patient Problems: Problems Problem Status Onset Ascites Acute Dehydration Acute Gallstone pancreatitis Acute Metabolic acidosis Acute
[2018-05-29] MEDS: TPN 1 EA BAG IV SCH (21:43)
[2018-05-30] MEDS: LEVOTHYROXINE 50 MCG TAB PO SCH (04:54)
[2018-05-30] MEDS: HYDROCODONE/APAP 5/325 TAB PO PRN ×3 (04:54→22:47)
[2018-05-30 05:43] LABS: PLATELET COUNT 486 10^3/uL (150-400)
[2018-05-30 06:03] LABS: INR 1.47 (0.83-1.16); PROTIME(PATIENT) 17.2 SEC (12.0-15.0)
[2018-05-30] MEDS: POLYETHYLENE GLYCOL 3350 17 GM PKT PO SCH (08:51)
[2018-05-30] MEDS: PSYLLIUM METAMUCIL 1 PKT PO SCH (08:51)
[2018-05-30] MEDS: PANTOPRAZOLE SODIUM 40 MG TAB PO SCH (08:51)
[2018-05-30] MEDS: TAMSULOSIN HCL 0.4 MG CAP PO SCH (08:51)
[2018-05-30] MEDS: SPIRONOLACTONE 50 MG TAB PO SCH ×2 (08:51→21:47)
[2018-05-30] MEDS: POTASSIUM CL 20 MEQ TAB PO SCH ×2 (08:51→21:47)
[2018-05-30] MEDS: ENOXAPARIN 40 MG/0.4 ML SYR SC SCH (08:52)
--- NOTE | 2018-05-30 10:13 | ASMTCMCOM ---
CM Note CM Note Notes: Met with Pt and for discharge planning. does not feel they will need any help because she is there. Pt is feeling stronger, Amb in [place] w . The only need can think of is getting oxygen set up. I let the RN know. CM available if needs arise. PLAN: likely discharge Home w and Oxygen. Date Signed: 05/30/2018 10:12 AM Electronically Signed By:Payton Lopez
[2018-05-30] MEDS: FUROSEMIDE 40 MG TAB PO SCH (15:13)
--- NOTE | 2018-05-30 15:35 | HOSPPROG ---
Hospitalist Progress Note Assessment/Plan: 68 yo M w severe gallstone pancreatitis, now with anasarca, hypoxia, poor nutrition pancreatitis: severe, slow to resolve, but pt feels improvement -most recent CT 05/15 with peripancreatic fluid collection and evolving phlegmon leukocytosis: likely 2/2 above, afebrile cholelithiasis/choledocholithiasis: s/p ercp -needs cholecystectomy eventually when ascites improves volume overload: s/p lasix gtt but ascites persists and still several liters net positive, though wt down 18 kg. Paracentesis attempted 05/23, but fluid collection loculated. Surgery consulted, no good surgical options. -S/p albumin/lasix, - Will transitioned from IV to PO Lasix 40 mg BID as he has not had much change in volume status since I saw him almost a month ago -cont spironolactone -follow I&O's, daily weights malnutrition: prolonged hospitalization, prolonged period of NPO, albumin 2.2 -cont tpn until discharge, slowly improving oral caloric intake -dietary following AHRF: due to above, was on 4 liters prior to thora and now on 2L. -wean o2 as able Ascites: due to fluid overload / pancreatitis. not responding great to diuresis. Failed attempt at paracentesis due to loculated fluid. - Lasix as above pleural effusion: bland fluid. echo showed fibrinous material in fluid concerning for metastasis- unlikely metastatic disease but plan for follow up CT in 6 months -will also request cytology on pleural fluid from 05/22 if able to add on Afib- CHADS VASC is 1. resolved with amiodarone. NAHID: improved w albumin and volume resuscitation urinary retention: salinas removed polycythemia: likely 2/2 TARI vs volume depletion outpt sleep study proph: enox dispo: inpatient for diuresis, ongoing illness Subjective: Patient reports no complaints this AM Objective: Vital Signs Temp Pulse Resp BP Pulse Ox 36.5 C 82 18 119/65 95 05/30/18 08:00 05/30/18 08:00 05/29/18 23:11 05/30/18 08:00 05/30/18 08:00 Laboratory Results 05/30/18 05:30 05/30/18 05:30 05/29/18 05/30/18 05/31/18 05:59 05:59 05:59 Intake Total 873 1067 Output Total 8806 0021 449 Balance -902 -1333 -600 PT 17.2 SEC (12.0-15.0) H 05/30/18 05:30 INR 1.47 (0.83-1.16) H 05/30/18 05:30 - Physical Exam Constitutional: chronically ill appearing Eyes: PERRL Ears, Nose, Mouth, Throat: moist mucous membranes Cardiovascular: regular rate and rhythym Respiratory: reduced air movement Gastrointestinal: distension, No tenderness Skin: warm Musculoskeletal: generalized weakness Neurologic: AAOx3 Psychiatric: interacting appropriately ICD10 Worksheet Patient Problems: Problems Problem Status Onset Ascites Acute Dehydration Acute Gallstone pancreatitis Acute Metabolic acidosis Acute
[2018-05-30] MEDS: TPN 1 EA BAG IV SCH (22:00)
[2018-05-31] MEDS: HYDROCODONE/APAP 5/325 TAB PO PRN (04:41)
[2018-05-31] MEDS: LEVOTHYROXINE 50 MCG TAB PO SCH (04:41)
[2018-05-31] MEDS: ENOXAPARIN 40 MG/0.4 ML SYR SC SCH (08:09)
[2018-05-31] MEDS: SPIRONOLACTONE 50 MG TAB PO SCH (08:10)
[2018-05-31] MEDS: POLYETHYLENE GLYCOL 3350 17 GM PKT PO SCH (08:10)
[2018-05-31] MEDS: POTASSIUM CL 20 MEQ TAB PO SCH (08:10)
[2018-05-31] MEDS: TAMSULOSIN HCL 0.4 MG CAP PO SCH (08:10)
[2018-05-31] MEDS: PANTOPRAZOLE SODIUM 40 MG TAB PO SCH (08:10)
[2018-05-31] MEDS: PSYLLIUM METAMUCIL 1 PKT PO SCH (08:10)
[2018-05-31] MEDS: FUROSEMIDE 40 MG TAB PO SCH (08:22)
[2018-05-31 08:37] VITALS: BP 110/70
[2018-05-31] MEDS ORDERED: MAGNESIUM SULF 1 GM/DEXTROSE 100 ML IV ONE (09:00)
--- NOTE | 2018-05-31 13:46 | ASMTCMCOM ---
CM Note CM Note Notes: Met w Pt and for discharge planning. Pt/ have no needs and is off oxygen as well as medically cleared for discharge. CM available if needs arise. PLAN: home Independently with . Date Signed: 05/31/2018 01:44 PM Electronically Signed By:Payton Lopez
--- NOTE | 2018-05-31 15:21 | PDDCSUM ---
Discharge Summary Discharge Summary: Date of Admission: 04/20/2018 Date of Discharge: 05/31/2018 Consults: Surgery Procedures: Thoracentesis, Paracentesis, CT Abd Followup: PCP, Surgery Hospital Course Problem List: 68 yo M w severe gallstone pancreatitis, now with anasarca, hypoxia, poor nutrition pancreatitis: severe, slow to resolve, but pt feels improvement -most recent CT 05/15 with peripancreatic fluid collection and evolving phlegmon leukocytosis: likely 2/2 above, afebrile cholelithiasis/choledocholithiasis: s/p ercp -needs cholecystectomy eventually when ascites improves, placed referral for Dr. Jimenez to be followed up with as outpatient volume overload: s/p lasix gtt but ascites persists and still several liters net positive, though wt down 18 kg. Paracentesis attempted 05/23, but fluid collection loculated. Surgery consulted, no good surgical options. -S/p albumin/lasix, - Transitioned from IV to PO Lasix 40 mg BID for discharge -cont spironolactone 50 mg BID for discharge -follow I&O's, daily weights malnutrition: prolonged hospitalization, prolonged period of NPO, albumin 2.2 -On tpn until discharge, slowly improving oral caloric intake, discussed at length with about need for ongoing nutrition, patient and family do not want TPN at time of discharge -dietary following AHRF: due to above, was on 4 liters prior to thora and now on RA Ascites: due to fluid overload / pancreatitis. not responding great to diuresis. Failed attempt at paracentesis due to loculated fluid. - Lasix as above pleural effusion: bland fluid. echo showed fibrinous material in fluid concerning for metastasis- unlikely metastatic disease but plan for follow up CT in 6 months -will also request cytology on pleural fluid from 05/22 if able to add on Afib- CHADS VASC is 1. resolved with amiodarone. NAHID: improved w albumin and volume resuscitation urinary retention: salinas removed, continue flomax polycythemia: likely 2/2 TARI vs volume depletion outpt sleep study Time spent on discharge was >35 minutes with >50% of time spent on patient education and counseling.
== END 2018-05-31 15:12 | disposition home or self-care (01) | DRG 438 ==
LOC: F2N 19:55 → F3E 04-24 12:33 → F2N 05-14 04:59 → F2W 05-19 19:54 → F1N 05-28 17:22
PROVIDERS: ADMIT Internal Medicine; ATTEND Internal Medicine
PROC: 0FC98ZZ Extirpation of Matter from Common Bile Duct, Via Natural or Artificial Opening Endoscopic (ICD-10-PCS; principal; 2018-04-21 07:30)
PROC: 0W9B3ZX Drainage of Left Pleural Cavity, Percutaneous Approach, Diagnostic (ICD-10-PCS; 2018-05-13)
PROC: 0W993ZX Drainage of Right Pleural Cavity, Percutaneous Approach, Diagnostic (ICD-10-PCS; 2018-05-22)
PROC: 0W9G3ZX Drainage of Peritoneal Cavity, Percutaneous Approach, Diagnostic (ICD-10-PCS; 2018-05-23)
PROC: 02HV33Z Insertion of Infusion Device into Superior Vena Cava, Percutaneous Approach (ICD-10-PCS; 2018-05-25)
DX: K85.10 Biliary acute pancreatitis without necrosis or infection (principal); K80.70 Calculus of gallbladder and bile duct without cholecystitis without obstruction; J96.01 Acute respiratory failure with hypoxia; R18.8 Other ascites; J90 Pleural effusion, not elsewhere classified; K56.7 Ileus, unspecified; N17.9 Acute kidney failure, unspecified; E46 Unspecified protein-calorie malnutrition; I48.91 Unspecified atrial fibrillation; E87.2 Acidosis; D75.1 Secondary polycythemia; G47.33 Obstructive sleep apnea (adult) (pediatric); N40.1 Benign prostatic hyperplasia with lower urinary tract symptoms; R33.8 Other retention of urine; E03.9 Hypothyroidism, unspecified; E78.5 Hyperlipidemia, unspecified; R74.0 Nonspecific elevation of levels of transaminase and lactic acid dehydrogenase [LDH]
CPT/HCPCS: 82435-PO; 82565-PO; 82947-PO; 82947-QW; 84132-PO; 84134-90; 84295-PO; 84520-PO; 85014-ER; 96374; 97116-GP; 97161-GP; 97164-GP; 97165-GO; 97168-GO; 97530-GO; 97535-GO; C1751; J0282; J0330; J0610; J0696; J1120; J1170; J1335; J1644; J1650; J1940; J2370; J2704; J3010; J3475; J3480; P9041; P9047; Q9961; Q9967